=== PATIENT | female | born 1980 | race Caucasian/White ===

== ENCOUNTER 2020-02-06 17:16 | Outpatient (REF) | payer OTHER, SELFPAY ==
--- NOTE | 2020-02-06 | MM_ITS ---
EXAMINATION: MM SCREENING DIGITAL BREAST TOMOSYNTHESIS, BILATERAL CLINICAL INFORMATION: Screening. Asymptomatic. The lifetime risk of breast cancer based on the Tyrer-Cuzick Model is 17%. COMPARISON: Mammography: 12/22/2018, 12/04/2011 TECHNIQUE: Digital breast tomosynthesis is performed in both the craniocaudal and mediolateral oblique views along with computer-aided detection (CAD). Synthesized 2D images are generated from the tomosynthesis. Additional left MLO view is provided. The skin marker placed at site of dermal inflammation posterior 7:30 o'clock left breast. FINDINGS: There are scattered areas of fibroglandular density (ACR BI-RADS breast composition Category b). Parenchymal pattern is similar to prior studies. There is no interval mass or architectural abnormality. No coarsening of the Shiv's ligaments or interval duct ectasia. No abnormal calcifications. Parenchymal asymmetry mid to posterior upper outer left breast is stable. No significant changes. MM/MM tomosynthesis screening BI IMPRESSION: No significant changes from prior study. ASSESSMENT: BI-RADS 2: Benign RECOMMENDATION: Routine annual mammography screening. This patient's information was entered into a reminder system with a target due date for their next mammogram.
== END 2020-02-06 17:17 | disposition home or self-care (01) ==
LOC: HO.MAMMO 17:16
PROVIDERS: PCP Internal Medicine; Visit Provider Obstetrics & Gynecology
DX: Z12.31 Encounter for screening mammogram for malignant neoplasm of breast (principal)
CPT/HCPCS: 77063; 77067

== ENCOUNTER 2020-04-05 09:59 | Outpatient (REF) | payer OTHER, SELFPAY | END 2020-04-05 10:00 | disposition home or self-care (01) | LOC: HO.LAB 09:59 | PROVIDERS: Visit Provider Internal Medicine | DX: Z20.822 Contact with and (suspected) exposure to COVID-19 (principal) | CPT/HCPCS: 36415; C9803; U0003 ==

== ENCOUNTER 2020-05-01 07:46 | Outpatient (REF) | payer OTHER, SELFPAY ==
[2020-05-01 08:38] LABS: MANUAL DIFF FLAG NO
[2020-05-01 08:45] LABS: Basophils Percent Auto 0.6 % (0-2); Eosinophils Absolute Auto 0.2 X10*3/uL (0.0-0.4); Eosinophils Percent Auto 3.9 % (0-4); Hematocrit 39.4 % (37-47); Imm Gran Abs Auto 0.03 X10*3/uL (0.00-0.03); Imm Gran Pct Auto 0.6 % (0.0-0.4); Lymphocytes Absolute Auto 1.5 X10*3/uL (1.2-4.9); Lymphocytes Percent Auto 29.9 % (20-40); Mean Corpuscular Hemoglobin 28.5 pg (27.0-33.0); Mean Corpuscular Volume 86.4 fL (80-98); Mean Platelet Volume 9.6 fL (9.4-12.3); Monocytes Absolute Auto 0.5 X10*3/uL (0.1-1.2); Monocytes Percent Auto 10.3 % (2-11); Neutrophils Absolute Auto 2.8 X10*3/uL (2.0-8.3); Neutrophils Percent Auto 54.7 % (45-73); Platelet Count 252 X10*3/uL (160-400); Red Blood Count 4.56 X10*6/uL (4.20-5.50); Red Cell Distribution Width 14.8 % (11.0-16.0); White Blood Count 5.2 X10*3/uL (4.8-10.8)
[2020-05-01 09:24] LABS: Alanine Aminotransferase 15 U/L (0-31); Albumin Level 4.7 g/dL (3.5-5.0); Alkaline Phosphatase 49 U/L (39-117); Anion Gap 12 (12-20); Aspartate Amino Transferase 15 U/L (5-31); Bilirubin Total 0.4 mg/dL (0.0-1.0); Blood Urea Nitrogen 15 mg/dL (9-16); Calcium 9.4 mg/dL (8.4-10.2); Carbon Dioxide 26 mmol/L (22-29); Chloride 104 mmol/L (96-108); Estimated Glomerular Filt Rate > 60; Glucose Fasting 83 mg/dL (60-99); Iron 49 mcg/dL (30-160); Percent Iron Saturation 11 % (15-50); Potassium 4.2 mmol/L (3.3-5.1); Sodium 138 mmol/L (135-145); Total Iron Binding Capacity 449 mcg/dL (228-428); Total Protein 7.5 g/dL (6.5-8.0); Unsaturated Iron Binding 400 ug/dL
[2020-05-01 10:22] LABS: HIV AB/AG Nonreactive (Nonreactive); HIV Num 1 0.08 S/CO (0.00-0.99)
[2020-05-02 21:46] LABS: Folate 7.7 ng/mL (> or = 4.0); Vitamin B12 188 pg/mL (200-900)
[2020-05-05 13:17] LABS: Vitamin D 25-OH, D2 <4 ng/mL; Vitamin D 25-OH, D3 9 ng/mL; Vitamin D 25-OH, Total 9 ng/mL (30-100)
== END 2020-05-01 07:47 | disposition home or self-care (01) ==
LOC: HO.LAB 07:46
PROVIDERS: PCP Internal Medicine; Visit Provider Internal Medicine
DX: D50.9 Iron deficiency anemia, unspecified (principal); R53.82 Chronic fatigue, unspecified; E55.9 Vitamin D deficiency, unspecified
CPT/HCPCS: 36415; 80053; 82306; 82607; 82746; 83540; 85025; 87389

== ENCOUNTER 2020-06-03 10:30 | Outpatient (REF) | payer OTHER, SELFPAY | END 2020-06-03 10:31 | disposition home or self-care (01) | LOC: HO.LAB 10:30 | PROVIDERS: Visit Provider Internal Medicine | DX: Z20.822 Contact with and (suspected) exposure to COVID-19 (principal) | CPT/HCPCS: 36415; C9803; U0003; U0005 ==

== ENCOUNTER 2020-06-10 12:55 | Outpatient (REF) | payer OTHER, SELFPAY ==
[2020-06-10 14:54] LABS: Syphilis Screen Nonreactive (Nonreactive)
[2020-06-11 04:33] LABS: HBc Num1 0.07 S/CO (0.00-0.79); HIV AB/AG Nonreactive (Nonreactive); HIV Num 1 0.08 S/CO (0.00-0.99); Hepatitis B Core Antibody Nonreactive (Nonreactive); ~HepC Num1 0.08 S/CO (0.00-0.79); ~Hepatitis C Antibody Nonreactive (Nonreactive)
[2020-06-11 10:00] LABS: CT PCR NOT DETECTED (Not Detect.); NG PCR NOT DETECTED (Not Detect.)
[2020-06-11 10:43] LABS: BV Int Neg Control Negative (Negative); BV Int Pos Control Positive (Positive)
== END 2020-06-10 12:56 | disposition home or self-care (01) ==
LOC: HO.LAB 12:55
PROVIDERS: PCP Internal Medicine; Visit Provider Advanced Practice Midwife
DX: Z01.84 Encounter for antibody response examination (principal); Z11.4 Encounter for screening for human immunodeficiency virus [HIV]; Z11.3 Encounter for screening for infections with a predominantly sexual mode of transmission; R10.2 Pelvic and perineal pain; N76.0 Acute vaginitis; G89.29 Other chronic pain; Z20.2 Contact with and (suspected) exposure to infections with a predominantly sexual mode of transmission
CPT/HCPCS: 36415; 81003; 86704; 86780; 86803; 87389; 87480; 87491; 87510; 87591; 87660; 99212

== ENCOUNTER 2020-12-31 13:59 | Outpatient (REF) | payer OTHER, SELFPAY | END 2020-12-31 14:00 | disposition home or self-care (01) | LOC: HO.LAB 13:59 | PROVIDERS: PCP Internal Medicine; Visit Provider Internal Medicine | DX: Z20.822 Contact with and (suspected) exposure to COVID-19 (principal) | CPT/HCPCS: C9803; U0003; U0005 ==

== ENCOUNTER 2021-01-06 12:07 | Outpatient (REF) | payer OTHER, SELFPAY ==
[2021-01-06 15:59] LABS: CT PCR NOT DETECTED (Not Detect.); NG PCR NOT DETECTED (Not Detect.)
[2021-01-07 11:10] LABS: BV Int Neg Control Negative (Negative); BV Int Pos Control Positive (Positive)
== END 2021-01-06 12:08 | disposition home or self-care (01) ==
LOC: HO.LAB 12:07
PROVIDERS: PCP Internal Medicine; Visit Provider Obstetrics & Gynecology
DX: Z11.3 Encounter for screening for infections with a predominantly sexual mode of transmission (principal); N76.0 Acute vaginitis; B96.89 Other specified bacterial agents as the cause of diseases classified elsewhere
CPT/HCPCS: 87480; 87491; 87510; 87591; 87660; 99212

== ENCOUNTER 2021-01-14 15:23 | Outpatient (REF) | payer OTHER, SELFPAY | END 2021-01-14 15:24 | disposition home or self-care (01) | LOC: HO.LAB 15:23 | PROVIDERS: PCP Internal Medicine; Visit Provider Internal Medicine | DX: Z20.822 Contact with and (suspected) exposure to COVID-19 (principal) | CPT/HCPCS: C9803; U0003; U0005 ==

== ENCOUNTER 2021-01-24 13:08 | Outpatient (REF) | payer OTHER, SELFPAY ==
[2021-01-24 14:17] LABS: COVID-19 Test Negative (Negative)
== END 2021-01-24 13:09 | disposition home or self-care (01) ==
LOC: HO.LAB 13:08
PROVIDERS: PCP Internal Medicine; Visit Provider Internal Medicine
DX: Z20.822 Contact with and (suspected) exposure to COVID-19 (principal)
CPT/HCPCS: 36415; 87635; C9803

== ENCOUNTER 2021-01-31 15:16 | Outpatient (REF) | payer OTHER, SELFPAY ==
[2021-01-31 15:45] LABS: COVID-19 Test Negative (Negative)
== END 2021-01-31 15:17 | disposition home or self-care (01) ==
LOC: HO.LAB 15:16
PROVIDERS: Visit Provider Internal Medicine
DX: Z20.822 Contact with and (suspected) exposure to COVID-19 (principal)
CPT/HCPCS: 36415; 87635; C9803

== ENCOUNTER 2021-08-18 09:49 | Outpatient (REF) | payer OTHER, SELFPAY ==
[2021-08-19 05:33] LABS: CT PCR NOT DETECTED (Not Detect.); NG PCR NOT DETECTED (Not Detect.)
[2021-08-19 13:09] LABS: BV Int Neg Control Negative (Negative); BV Int Pos Control Positive (Positive)
[2021-08-26 02:13] LABS: HPV mRNA E6/E7 rflx Not Detected (Not Detected)
== END 2021-08-18 09:50 | disposition home or self-care (01) ==
LOC: HO.LAB 09:49
PROVIDERS: PCP Internal Medicine; Visit Provider Advanced Practice Midwife
DX: Z12.4 Encounter for screening for malignant neoplasm of cervix (principal); Z11.51 Encounter for screening for human papillomavirus (HPV); Z11.3 Encounter for screening for infections with a predominantly sexual mode of transmission; R10.2 Pelvic and perineal pain; B96.89 Other specified bacterial agents as the cause of diseases classified elsewhere; N73.9 Female pelvic inflammatory disease, unspecified; N76.0 Acute vaginitis; Z86.19 Personal history of other infectious and parasitic diseases; Z87.42 Personal history of other diseases of the female genital tract
CPT/HCPCS: 81025; 87480; 87491; 87510; 87591; 87624; 87660; 96372; J0696

== ENCOUNTER 2021-10-03 15:08 | Outpatient (REF) | payer OTHER, SELFPAY ==
--- NOTE | ~2021-10-03 | US_ITS ---
EXAMINATION: US PELVIS CLINICAL INFORMATION: Pelvic inflammatory disease. COMPARISON: December 28, 2014 TECHNIQUE: Ultrasound of the pelvis is performed using both transabdominal and transvaginal transducers along with Doppler. Transvaginal imaging is performed due to inadequate visualization transabdominally. FINDINGS: Uterus: The uterus is anteverted and measures 10.9 x 5.3 x 7.0 cm. The double wall endometrial thickness is 1.1 mm. The uterus is smooth in contour and has normal myometrial echogenicity. No visible fibroid. Adnexa: Both ovaries are visualized. There is normal color flow to the adnexa. There is no ovarian torsion. There is no pelvic ascites or fluid collection. Right ovary measures 3.1 x 1.8 x 1.8 cm. Volume of 5.3 mL. Left ovary measures 2.5 x 2.1 x 1.8 cm. 5.0 mL volume. US/US pelvic and transvaginal IMPRESSION: Essentially normal pelvic ultrasound study. Previously noted uterine fibroids are not definitely identified on this study.
== END 2021-10-03 15:09 | disposition home or self-care (01) ==
LOC: HO.US 15:08
PROVIDERS: Visit Provider Advanced Practice Midwife
DX: N73.9 Female pelvic inflammatory disease, unspecified (principal); B96.89 Other specified bacterial agents as the cause of diseases classified elsewhere; N76.0 Acute vaginitis; Z86.19 Personal history of other infectious and parasitic diseases; Z87.42 Personal history of other diseases of the female genital tract
CPT/HCPCS: 76830; 76856

== ENCOUNTER → 2021-10-10 12:32 | Outpatient (BNVA) | payer OTHER, SELFPAY | PROVIDERS: PCP Internal Medicine; Visit Provider Advanced Practice Midwife | DX: R10.2 Pelvic and perineal pain (principal); G89.29 Other chronic pain; Z87.42 Personal history of other diseases of the female genital tract | CPT/HCPCS: 99212 ==

== ENCOUNTER 2022-01-08 11:00 | Outpatient (REF) | payer OTHER, SELFPAY ==
--- NOTE | ~2022-01-08 | XR_ITS ---
EXAMINATION: XR ABDOMEN KUB CLINICAL INDICATION: Left lower quadrant pain. Patient states abdominal pain for months COMPARISON: None TECHNIQUE: AP view of the abdomen. FINDINGS: Nonobstructed abdominal bowel gas pattern. Right upper quadrant cholecystectomy clips. No radiopaque urolithiasis seen. Prominent L5 transverse processes bilaterally. XR/XR KUB IMPRESSION: Nonobstructive abdominal bowel gas pattern.
[2022-01-08 12:12] LABS: MANUAL DIFF FLAG NO
[2022-01-08 12:42] LABS: Basophils Percent Auto 0.7 % (0-2); Eosinophils Absolute Auto 0.1 X10*3/uL (0.0-0.4); Hematocrit 39.5 % (37.0-47.0); Hemoglobin 12.7 g/dl (12.0-16.0); Imm Gran Abs Auto 0.03 X10*3/uL (0.00-0.03); Imm Gran Pct Auto 0.5 % (0.0-0.4); Lymphocytes Absolute Auto 1.5 X10*3/uL (1.2-4.9); Lymphocytes Percent Auto 25.8 % (20-40); Mean Corpuscular HGB Conc 32.2 g/dl (31.0-35.0); Mean Corpuscular Hemoglobin 28.3 pg (27.0-33.0); Mean Corpuscular Volume 88.2 fL (80.0-98.0); Mean Platelet Volume 8.9 fL (9.4-12.3); Monocytes Absolute Auto 0.5 X10*3/uL (0.1-1.2); Monocytes Percent Auto 7.7 % (2-11); Neutrophils Absolute Auto 3.9 x10*3/uL (2.0-8.3); Neutrophils Percent Auto 64.3 % (45-73); Platelet Count 266 X10*3/uL (160-400); Red Blood Count 4.48 X10*6/uL (4.20-5.50); Red Cell Distribution Width 13.2 % (11.0-16.0)
[2022-01-08 13:20] LABS: Alanine Aminotransferase 22 U/L (0-31); Albumin Level 4.5 g/dL (3.5-5.0); Alkaline Phosphatase 52 U/L (39-117); Anion Gap 15 (12-20); Aspartate Amino Transferase 20 U/L (5-31); Bilirubin Total 0.6 mg/dL (0.0-1.0); Blood Urea Nitrogen 14 mg/dL (9-16); Calcium 9.3 mg/dL (8.4-10.2); Carbon Dioxide 25 mmol/L (22-29); Chloride 104 mmol/L (96-108); Estimated Glomerular Filt Rate > 60; Glucose Random 88 mg/dL (60-115); Potassium 3.8 mmol/L (3.3-5.1); Sodium 140 mmol/L (135-145); Total Protein 7.3 g/dL (6.5-8.0)
[2022-01-08 13:43] LABS: TSH reflex Free T4 1.09 uIU/mL (0.32-4.0)
== END 2022-01-08 11:01 | disposition home or self-care (01) ==
LOC: HO.LAB 11:00
PROVIDERS: PCP Internal Medicine; Visit Provider Nurse Practitioner Family
DX: R10.32 Left lower quadrant pain (principal); M54.50 Low back pain, unspecified
CPT/HCPCS: 36415; 74018; 80053; 84443; 85025; 87086

== ENCOUNTER 2022-03-12 13:49 | Outpatient (REF) | payer OTHER, SELFPAY ==
--- NOTE | ~2022-03-12 | CT_ITS ---
EXAMINATION: CT ABDOMEN AND PELVIS WITH CONTRAST CLINICAL INFORMATION: Left lower quadrant pain COMPARISON: None TECHNIQUE: Multidetector volumetric images were obtained from the superior aspect of the liver through the pubic symphysis following administration 85 mL of Omnipaque 350 intravenous contrast. Sagittal and coronal reformatted images were obtained on the technologist's workstation. Oral contrast: No This CT examination was performed using dose optimization techniques as appropriate, variously including the following: *Automated exposure control *Adjustment of mA and/or kV according to patient size (this includes techniques or standardized protocols for targeted exams where dose is matched to indication/reason for exam; i.e. extremities or head) *Use of iterative reconstruction technique DLP: 596 mGy-cm FINDINGS: LUNG BASES: The lung bases are clear. Heart size is normal. LIVER, GALLBLADDER, AND BILIARY TREE: The liver is normal in size, shape, and attenuation. No focal hepatic lesion or biliary ductal dilatation is present. The gallbladder has been surgically removed. PANCREAS: Unremarkable. SPLEEN: Unremarkable. ADRENAL GLANDS: Unremarkable. KIDNEYS AND URETERS: The kidneys are normal in size, shape, and attenuation. There is a 9 mm radiopaque calculi mid pole cortex left kidney. BLADDER: Unremarkable. GASTROINTESTINAL TRACT: There is oral contrast opacifying the colon and small bowel loops which are normal caliber. There is scattered stool seen throughout the colon without distention. Appendix is not visualized. A migrated surgical charo seen in the left pelvis. ABDOMINAL WALL: No significant hernia is appreciated. LYMPH NODES: Normal. VASCULAR: Unremarkable. PELVIC VISCERA: The uterus is anteverted with moderate gas and soft tissue visualized in the cervix. There are 2 cyst visualized in the left ovary, a thin-walled enhancing corpus luteal cyst measures 2.2 cm and a slightly larger nonenhancing simple cyst measures 3.3 cm OSSEOUS STRUCTURES: No aggressive lytic or sclerotic process seen. There are degenerative disc changes with vacuum disc phenomena at L4-L5 disc level. There is mild ventral spondylosis. CT/CT abdomen pelvis w IV con IMPRESSION: 2 cysts in the left ovary as described above. Otherwise no acute process seen. Fleischner guidelines were followed.
[2022-03-12] MEDS: Barium Sulfate Oral (Mocha) 450 ML ORAL.SUSP 900 ML PO (16:23)
[2022-03-12] MEDS: iohexoL 350 MG/ML 100 ML INFUS..BTL 85 ML IV (16:23)
== END 2022-03-12 13:50 | disposition home or self-care (01) ==
LOC: HO.CT 13:49
PROVIDERS: PCP Internal Medicine; Visit Provider Nurse Practitioner Family
DX: R10.32 Left lower quadrant pain (principal)
CPT/HCPCS: 74177; Q9967

== ENCOUNTER 2022-04-13 12:03 | Outpatient (REF) | payer OTHER, SELFPAY ==
[2022-04-13 12:24] LABS: MANUAL DIFF FLAG NO
[2022-04-13 14:25] LABS: Basophils Percent Auto 0.6 % (0-2); Eosinophils Absolute Auto 0.1 X10*3/uL (0.0-0.4); Eosinophils Percent Auto 1.2 % (0-4); Hematocrit 38.1 % (37.0-47.0); Hemoglobin 12.8 g/dl (12.0-16.0); Imm Gran Abs Auto 0.03 X10*3/uL (0.00-0.03); Imm Gran Pct Auto 0.6 % (0.0-0.4); Lymphocytes Absolute Auto 1.9 X10*3/uL (1.2-4.9); Mean Corpuscular HGB Conc 33.6 g/dl (31.0-35.0); Mean Corpuscular Hemoglobin 29.4 pg (27.0-33.0); Mean Corpuscular Volume 87.4 fL (80.0-98.0); Mean Platelet Volume 9.5 fL (9.4-12.3); Monocytes Absolute Auto 0.6 X10*3/uL (0.1-1.2); Monocytes Percent Auto 11.5 % (2-11); Neutrophils Absolute Auto 2.6 x10*3/uL (2.0-8.3); Neutrophils Percent Auto 50.1 % (45-73); Platelet Count 248 X10*3/uL (160-400); Red Blood Count 4.36 X10*6/uL (4.20-5.50); Red Cell Distribution Width 13.7 % (11.0-16.0); White Blood Count 5.1 X10*3/uL (4.8-10.8)
[2022-04-13 14:51] LABS: Iron 68 mcg/dL (30-160); Percent Iron Saturation 19 % (15-50); Total Iron Binding Capacity 365 mcg/dL (228-428); Unsaturated Iron Binding 297 ug/dL
[2022-04-13 15:06] LABS: Folate 13.4 ng/mL (> or = 4.0); Thyroid Stimulating Hormone 1.27 uIU/mL (0.32-4.0); Vitamin B12 213 pg/mL (200-900); Vitamin D 25-OH Total 10.1 ng/mL (>30)
[2022-04-16 21:43] LABS: Intrinsic Factor Antibodies Negative (Negative)
[2022-04-17 23:28] LABS: Parietal Cell Antibody <=20.0 Unit (<=20.0)
== END 2022-04-13 12:04 | disposition home or self-care (01) ==
LOC: HO.LAB 12:03
PROVIDERS: PCP Internal Medicine; Visit Provider Internal Medicine
DX: E53.8 Deficiency of other specified B group vitamins (principal); E66.01 Morbid (severe) obesity due to excess calories; E55.9 Vitamin D deficiency, unspecified; D64.9 Anemia, unspecified
CPT/HCPCS: 36415; 82306; 82607; 82746; 83516; 83540; 84443; 85025; 86340

== ENCOUNTER 2022-04-28 09:59 | Outpatient (REF) | payer OTHER, SELFPAY | END 2022-04-28 10:00 | disposition home or self-care (01) | LOC: HO.LNP 09:59 | PROVIDERS: Visit Provider Obstetrics & Gynecology | DX: Z13.89 Encounter for screening for other disorder (principal) ==

== ENCOUNTER 2022-04-28 10:37 | Outpatient (REF) | payer OTHER, SELFPAY ==
[2022-04-28 18:21] LABS: CT PCR NOT DETECTED (Not Detect.); NG PCR NOT DETECTED (Not Detect.)
[2022-04-29 06:36] LABS: Syphilis Screen Nonreactive (Nonreactive)
[2022-04-29 07:42] LABS: HBsAGNum1 0.27 S/CO (0.00-0.99); HIV Num 1 5.65 S/CO (0.00-0.99); Hepatitis B Surface Antigen Negative (Negative); ~HepC Num1 0.07 S/CO (0.00-0.79); ~Hepatitis C Antibody Nonreactive (Nonreactive)
[2022-04-29 11:52] LABS: HIV AB/AG Nonreactive (Nonreactive); HIV Num 2 0.07 S/CO; HIV Num 3 0.06 S/CO
[2022-04-29 12:51] LABS: BV Int Neg Control Negative (Negative); BV Int Pos Control Positive (Positive)
== END 2022-04-28 10:38 | disposition home or self-care (01) ==
LOC: HO.LAB 10:37
PROVIDERS: PCP Internal Medicine; Visit Provider Obstetrics & Gynecology
DX: Z01.419 Encounter for gynecological examination (general) (routine) without abnormal findings (principal); Z20.2 Contact with and (suspected) exposure to infections with a predominantly sexual mode of transmission
CPT/HCPCS: 0353U; 86780; 86803; 87340; 87389; 87480; 87510; 87660

== ENCOUNTER → 2022-05-13 10:35 | Outpatient (BNVA) | payer OTHER, SELFPAY | PROVIDERS: PCP Internal Medicine; Visit Provider Nurse Practitioner Family | DX: N20.0 Calculus of kidney (principal) | CPT/HCPCS: 99202 ==

== ENCOUNTER → 2022-06-10 06:07 | Day surgery (SDC) | payer OTHER, SELFPAY ==
[2022-06-04 14:08] VITALS: BMI 41.7
--- NOTE | ~2022-06-10 | XR_ITS ---
EXAMINATION: XR ABDOMEN KUB CLINICAL INDICATION: Left renal stone COMPARISON: CT abdomen/pelvis dated 03/12/2022 TECHNIQUE: 2 views of the abdomen. FINDINGS: The bowel gas pattern is normal with no evidence of ileus or obstruction. There are 2 stones in the upper pole right kidney measuring 6 mm and 5 mm as seen on the prior CT. No additional unusual soft tissue calcifications are noted. There are a few phleboliths within the pelvis. Cholecystectomy. The bones are unremarkable. XR/XR KUB IMPRESSION: There are 2 stones in the upper pole right kidney measuring 6 mm and 5 mm.
[2022-06-10 06:39] VITALS: BP 131/76; PULSE 78; RESP 18; TEMP 36.6; O2SAT 97
[2022-06-10] MEDS: Lactated Ringers 1,000 ML 50 ML IVCONT (06:51)
[2022-06-10] MEDS: Lactated Ringers 1,000 ML 999 ML IV (08:16)
--- NOTE | 2022-06-10 08:28 | P.CONAN_ITS ---
HPI - Anesthesia Eval Consult details Narrative: * ? Details Ana Maria is a pleasant 42-year-old female patient for nephrolithiasis.? Patient reports she presented to her PCP office for abdominal/lower back pain left side greater than right.? Medical history significant for iron deficiency anemia, depression, anxiety, vitamin-D deficiency, PID, and chronic pelvic pain in female.? Patient reports left-sided abdominal pain as well as back pain for approximately 6 months now.? Patient reports taking Motrin and Tylenol without adequate relief.? She reports following up with PCP regarding this issue at which time CT of the abdomen and pelvis was performed as patient has a history of renal calculi.? This imaging was reviewed with the patient today. The kidneys are normal in size, shape, and attenuation. There is a 9 mm radiopaque calculi mid pole cortex left kidney.? The bladder is unremarkable.? When asked patient denies any other urinary issues or concerns.? She denies any changes to her urinary habits.? She denies urinary urgency, urinary frequency, incontinence, nocturia, hematuria, dysuria, foul smelling urine, changes to urinary stream, fever, and or chills. Discussed at length interventions as well as risk and befits of each intervention regarding 9mm left renal calculi. [facility] Active Problems Active Problems: All Active Problems (Updated 04/28/22 @ 10:21 by Sergo Nuñez MD) Bacterial vaginosis (Acute) Screen for sexually transmitted diseases (Acute) Cervical cancer screening (Acute) Hx of gonorrhea (Acute) Hx of chronic endometritis (Acute) Pelvic inflammatory disease (PID) (Acute) Chronic pelvic pain in female (Acute) LLQ pain (Acute) Low back pain (Acute) Constipation (Acute) Abdominal bloating (Acute) Left renal stone (Acute) Morbid obesity due to excess calories (Acute) QUINCY (generalized anxiety disorder) (Acute) Severe recurrent major depression (Acute) Well woman exam (Acute) Hypovitaminosis D (Acute) B12 deficiency (Acute) Depression with anxiety (Acute) Chronic fatigue (Acute) Iron deficiency anemia (Acute) Past Medical History Medical History B12 deficiency Chronic fatigue Depression with anxiety History of cocaine use Hypovitaminosis D Iron deficiency anemia Family History Family History Father HTN (hypertension) Liver disease due to alcohol Mother HTN (hypertension) Diabetes Maternal Aunt Breast cancer Uterine cancer Maternal Uncle Breast cancer Paternal Grandmother Uterine cancer Family history of problems with anesthesia: No Surgical History Surgical History (Updated 06/04/22 @ 14:08 by Radha Rodriguez RN) H/O section H/O tubal ligation History of ankle surgery Hx of breast reduction, elective Hx of cholecystectomy History of Problems with Anesthesia: No Social History Social History Alcohol intake: never Patient Tobacco Use Status: Current everyday Tobacco user Cigarettes Per Day: 3 Are you DNR?: No Advance Directives: No Advance Directives Information Provided: Yes Recently lost weight without trying: No Nutrition Risks: No Nutritional Risk Cognitive needs: No Hearing needs: No Vision needs: No Meds Allergies Allergy/AdvReac Type Severity Reaction Status Date / Time ferrous sulfate Allergy Severe abdominal Verified 05/13/22 19:30 pain Sulfa (Sulfonamide Allergy Severe RASH, Verified 06/04/22 13:57 Antibiotics) TROUBLE SWALLOWING, DIFFICULTY BREATHING, anaphylaxis venlafaxine [From Effexor] Allergy Severe anaphylaxis/tongue Verified 06/04/22 13:55 swelling ibuprofen [From MOTRIN] Allergy Intermediate SHORTNESS Verified 05/13/22 19:30 OF BREATH morphine [MORPHINE] Allergy Intermediate NAUSEA/VOMITING, Verified 06/04/22 13:57 anaphylaxis aspirin [Aspirin] Allergy Mild hives/rash/SOB/difficulty Verified 06/04/22 13:57 swallowing/throat swelling hydromorphone [From DILAUDID] AdvReac Intermediate DYSPHORIA Verified 05/13/22 19:30 Active Medications: Current Medications Lactated Ringer's (Lr) 1,000 mls @ 50 mls/hr IVCONT .Q20H HONEY Last Admin: 06/10/22 06:51 Dose: 50 mls/hr Lactated Ringer's (Lr) 1,000 mls @ 999 mls/hr IV .Q1H1M [facility] Stop: 06/10/22 09:00 Last Admin: 06/10/22 08:16 Dose: 999 mls/hr Sodium Chloride (0.9 % Sodium Chloride Flush 3 Ml Syringe) 3 ml IVFLUSH QSHIFT [facility] Home Medications Medication Instructions Recorded Confirmed Last Taken Type citalopram 40 mg tablet 40 mg PO BEDTIME 12/04/19 06/04/22 Unknown History lorazepam 1 mg tablet 1 mg PO TID PRN Anxiety 12/04/19 06/04/22 06/10/22 05:45 History gabapentin 100 mg capsule 100 mg PO BEDTIME 05/13/22 06/04/22 Unknown History risperidone 1 mg tablet 0.5 mg PO QAM 05/13/22 06/04/22 Unknown History zolpidem 10 mg tablet 10 mg PO BEDTIME PRN insomnia 05/13/22 06/04/22 Unknown History Exam Exam Date and Time: June 10, 2022 0828 Height,Weight and Vital Signs: Height 5 ft 2 in Weight 103.419 kg Last Vital Signs Temp 98 F 06/10/22 06:39 Pulse 78 06/10/22 06:39 Resp 18 06/10/22 06:39 BP 131/76 06/10/22 06:39 Pulse Ox 97 06/10/22 06:39 O2 Del Method Room Air 06/10/22 06:39 Airway Mallampati Class: II TM Dist: >3cm Neck ROM: Full Heart: rrr Lungs: cta Assessment and Plan Assessment Anesthesia Assessment: Anesthesia Plan Discussed Final Anesthetic Review Family History of Problems with Anesthesia: No History of Problems with Anesthesia: No NPO: Yes ASA Class: III Final Preanesthetic Review: No Changes in Pt Med Stat, Meds/Allgs Chart Reviewed and Consent Obtained/Reviewed Patient Risk: Intermediate Procedure Risk: Low Anesthetic Plan Anesthetic Plan: GA Disposition: Standard PACU
--- NOTE | 2022-06-10 08:59 | MHC.SHP ---
Pre-Procedural Eval Section A Date of Service: 06/10/22 The patient is an INPATIENT: No Changes since office visit: No Cold of Flu in the past 2 weeks, No New Medical Problems, No Changes in Medication and No Patient answered all questions The History & Physical has been completed within 30 days and I have reviewed it.: Yes Section B Chief Complaint: Calculus of kidney Details of Present Illness: Upon review of imaging stone reported left but is on the right patient given option of right ESWL or deferring procedure She would like to defer Allergies: Allergies Allergy/AdvReac Type Severity Reaction Status Date / Time ferrous sulfate Allergy Severe abdominal Verified 05/13/22 19:30 pain Sulfa (Sulfonamide Allergy Severe RASH, Verified 06/04/22 13:57 Antibiotics) TROUBLE SWALLOWING, DIFFICULTY BREATHING, anaphylaxis venlafaxine [From Effexor] Allergy Severe anaphylaxis/tongue Verified 06/04/22 13:55 swelling ibuprofen [From MOTRIN] Allergy Intermediate SHORTNESS Verified 05/13/22 19:30 OF BREATH morphine [MORPHINE] Allergy Intermediate NAUSEA/VOMITING, Verified 06/04/22 13:57 anaphylaxis aspirin [Aspirin] Allergy Mild hives/rash/SOB/difficulty Verified 06/04/22 13:57 swallowing/throat swelling hydromorphone [From DILAUDID] AdvReac Intermediate DYSPHORIA Verified 05/13/22 19:30 Plan Diagnosis/Plan: Change (Cancel ESWL) I have reviewed the history and physical and performed a pertinent physical examination on my patient. No changes have occurred unless specified. Time Spent With Patient Time: Total time managing care of this patient today ____ minutes.
--- NOTE | 2022-06-10 09:07 | PC.NURSE ---
pt cancelled will f/u with dr bautista in couple weeks for ultrasound if having any pain no pain
== END ==
PROVIDERS: PCP Internal Medicine; Visit Provider Urology
DX: N20.0 Calculus of kidney (principal); Z53.20 Procedure and treatment not carried out because of patient's decision for unspecified reasons; Z87.442 Personal history of urinary calculi; D50.9 Iron deficiency anemia, unspecified; R53.82 Chronic fatigue, unspecified; E55.9 Vitamin D deficiency, unspecified; F41.8 Other specified anxiety disorders; Z79.899 Other long term (current) drug therapy; Z88.2 Allergy status to sulfonamides; Z88.8 Allergy status to other drugs, medicaments and biological substances; F14.11 Cocaine abuse, in remission; F17.210 Nicotine dependence, cigarettes, uncomplicated
CPT/HCPCS: 74018; J0131

== ENCOUNTER 2022-07-30 08:52 | Emergency (ER) | payer OTHER, SELFPAY ==
--- NOTE | ~2022-07-30 | CT_ITS ---
EXAMINATION: CT ABDOMEN AND PELVIS WITH CONTRAST CLINICAL INFORMATION: Acute on chronic left lower quadrant pain COMPARISON: CT abdomen and pelvis 03/12/2022 TECHNIQUE: Multidetector volumetric images were obtained from the superior aspect of the liver through the pubic symphysis following administration 85 mL of Omnipaque 350 intravenous contrast. Sagittal and coronal reformatted images were obtained on the technologist's workstation. Oral contrast: None This CT examination was performed using dose optimization techniques as appropriate, variously including the following: *Automated exposure control *Adjustment of mA and/or kV according to patient size (this includes techniques or standardized protocols for targeted exams where dose is matched to indication/reason for exam; i.e. extremities or head) *Use of iterative reconstruction technique DLP: 841 mGy-cm FINDINGS: LUNG BASES: The visualized lung bases are unremarkable. LIVER, GALLBLADDER, AND BILIARY TREE: The liver is normal in size, shape, and attenuation. No focal hepatic lesion or biliary ductal dilatation is present. The gallbladder has been surgically removed. CBD is mildly prominent an expected finding. PANCREAS: Unremarkable. SPLEEN: Unremarkable. ADRENAL GLANDS: Unremarkable. KIDNEYS AND URETERS: The kidneys are normal in size, shape, and attenuation. There is a 6 mm nonobstructive calculi midpole right kidney similar to previous study. No acute additional vertebrae calculi seen. There is no caliectasis or hydronephrosis. BLADDER: The bladder is nondistended and appears unremarkable. GASTROINTESTINAL TRACT: There is moderate scattered stool and gas seen throughout the colon without distention. The small bowel loops are normal caliber. There is a radiopaque density seen along the anterior abdomen inferior to umbilicus on axial image 65/3 likely migrated staple from previous cholecystectomy. ABDOMINAL WALL: A small umbilical hernia containing fat is noted. LYMPH NODES: Normal. VASCULAR: Unremarkable. PELVIC VISCERA: The uterus is anteverted. There are probable small ovarian cysts. OSSEOUS STRUCTURES: There are degenerative disc changes with vacuum disc phenomena and spondylosis L4-L5 disc level. No aggressive lytic or sclerotic process seen. CT/CT abdomen pelvis w IV con IMPRESSION: No abnormality seen in left abdomen. No abnormality seen to explain patient's left lower quadrant pain. Nonobstructive radiopaque calculi mid pole right kidney. No caliectasis or hydronephrosis. Fleischner guidelines were followed.
[2022-07-30 09:01] VITALS: BP 118/69; PULSE 77; RESP 16; TEMP 36.1; O2SAT 97; BMI 42.8
--- NOTE | 2022-07-30 09:13 | PC.NURSE ---
aox3, reporting 9/10 left sided pain from LLQ radiating around to Left flank. pt reports SOB, nausea, denies vomiting.
[2022-07-30 10:12] LABS: MANUAL DIFF FLAG NO
[2022-07-30 10:14] LABS: Basophils Percent Auto 0.6 % (0-2); Eosinophils Percent Auto 0.4 % (0-4); Hematocrit 39.7 % (37.0-47.0); Hemoglobin 13.1 g/dl (12.0-16.0); Imm Gran Abs Auto 0.02 X10*3/uL (0.00-0.03); Imm Gran Pct Auto 0.4 % (0.0-0.4); Lymphocytes Absolute Auto 1.3 X10*3/uL (1.2-4.9); Lymphocytes Percent Auto 26.3 % (20-40); Mean Corpuscular Hemoglobin 28.6 pg (27.0-33.0); Mean Corpuscular Volume 86.7 fL (80.0-98.0); Mean Platelet Volume 9.3 fL (9.4-12.3); Monocytes Absolute Auto 0.4 X10*3/uL (0.1-1.2); Monocytes Percent Auto 8.8 % (2-11); Neutrophils Absolute Auto 3.2 x10*3/uL (2.0-8.3); Neutrophils Percent Auto 63.5 % (45-73); Platelet Count 275 X10*3/uL (160-400); Red Blood Count 4.58 X10*6/uL (4.20-5.50); Red Cell Distribution Width 13.7 % (11.0-16.0)
[2022-07-30] MEDS: 0.9 % Sodium Chloride 1,000 ML 999 ML IV (10:31)
[2022-07-30 10:45] LABS: Appearance Urine Clear; Color Urine Dark Yellow; Glucose Urine UA Negative (Negative); Leukocyte Esterase Urine Negative (Negative); Nitrite Urine Negative (Negative); Specific Gravity - Urine >= 1.030 (1.005-1.025); UPreg QC Valid YES; Urine Blood Negative (Negative); Urine Ketones Negative (Negative); Urine Pregnancy NEGATIVE (NEGATIVE); Urine Protein Trace mg/dL (Neg-Trace)
[2022-07-30 10:49] LABS: Alanine Aminotransferase 22 U/L (0-31); Albumin Level 4.3 g/dL (3.5-5.0); Alkaline Phosphatase 52 U/L (39-117); Anion Gap 11 (12-20); Aspartate Amino Transferase 19 U/L (5-31); Bilirubin Total 0.8 mg/dL (0.0-1.0); Blood Urea Nitrogen 11 mg/dL (9-16); Calcium 9.4 mg/dL (8.4-10.2); Carbon Dioxide 25 mmol/L (22-29); Chloride 106 mmol/L (96-108); Estimated Glomerular Filt Rate > 60; Glucose Random 99 mg/dL (60-115); Potassium 4.3 mmol/L (3.3-5.1); Sodium 138 mmol/L (135-145)
[2022-07-30] MEDS: iohexoL 350 MG/ML 100 ML INFUS..BTL IV (11:10)
[2022-07-30 12:00] VITALS: BP 116/55; PULSE 64; RESP 16; O2SAT 99
--- NOTE | 2022-07-30 12:57 | ED_ITS ---
HPI - Female Genitourinary General Chief complaint: Urogenital-Female Stated complaint: Kidney stones Time Seen by Provider: 07/30/22 09:10 Source: patient Mode of arrival: ambulatory Limitations: no limitations History of Present Illness HPI Narrative: 42-year-old female presents with left-sided abdominal pain. Patient has history kidney stones. She was due to have her procedure at some point in the recent past. Her pain has been left-sided sometimes radiating to left flank. Associated with urinary frequency which is unchanged but no dysuria, hematuria. The pain is severe rated as 9/10. There is no clear relieving or exacerbating features. Not associated with diarrhea constipation. There is no blood in the stool. Symptoms started approximately 2 months ago and have gotten worse over the past 2-3 days. Patient describes the pain as crampy and sharp in nature. Prior treatment includes Tylenol with no significant patient denies any vaginal bleeding but does have a clear vaginal discharge which has been an ongoing issue Related Data Home Medications Medication Instructions Recorded Confirmed citalopram 40 mg tablet 40 mg PO BEDTIME 12/04/19 06/04/22 lorazepam 1 mg tablet 1 mg PO TID PRN Anxiety 12/04/19 06/04/22 gabapentin 100 mg capsule 100 mg PO BEDTIME 05/13/22 06/04/22 risperidone 1 mg tablet 0.5 mg PO QAM 05/13/22 06/04/22 zolpidem 10 mg tablet 10 mg PO BEDTIME PRN insomnia 05/13/22 06/04/22 Previous Rx's Medication Instructions Recorded cholecalciferol (vitamin D3) 50 50 mcg PO DAILY 90 days #90 caps 04/13/22 mcg (2,000 unit) capsule folic acid 1 mg tablet 1 mg PO DAILY 90 days #90 tabs 04/13/22 lactulose 10 gram/15 mL (15 mL) 10 g (15 mL) PO DAILY PRN 06/07/22 oral solution constipation 90 days #1,440 mL mecobalamin (vitamin B12) 1,000 1,000 mcg sublingual BEDTIME 90 06/07/22 mcg disintegrating days #90 tabs tablet,sublingual dicyclomine 20 mg tablet 20 mg PO QID #20 tabs 07/30/22 Allergies Allergy/AdvReac Type Severity Reaction Status Date / Time ferrous sulfate Allergy Severe abdominal Verified 05/13/22 19:30 pain Sulfa (Sulfonamide Allergy Severe RASH, Verified 06/04/22 13:57 Antibiotics) TROUBLE SWALLOWING, DIFFICULTY BREATHING, anaphylaxis venlafaxine [From Effexor] Allergy Severe anaphylaxis/tongue Verified 06/04/22 13:55 swelling ibuprofen [From MOTRIN] Allergy Intermediate SHORTNESS Verified 05/13/22 19:30 OF BREATH morphine [MORPHINE] Allergy Intermediate NAUSEA/VOMITING, Verified 06/04/22 13:57 anaphylaxis aspirin [Aspirin] Allergy Mild hives/rash/SOB/difficulty Verified 06/04/22 13:57 swallowing/throat swelling hydromorphone [From DILAUDID] AdvReac Intermediate DYSPHORIA Verified 05/13/22 19:30 PMFSH Past Medical History Medical History B12 deficiency Chronic fatigue Depression with anxiety History of cocaine use Hypovitaminosis D Iron deficiency anemia Surgical History H/O section H/O tubal ligation History of ankle surgery Hx of breast reduction, elective Hx of cholecystectomy Family History Family History Father HTN (hypertension) Liver disease due to alcohol Mother HTN (hypertension) Diabetes Maternal Aunt Breast cancer Uterine cancer Maternal Uncle Breast cancer Paternal Grandmother Uterine cancer Social History Social History Alcohol intake: never Patient Tobacco Use Status: Current everyday Tobacco user Cigarettes Per Day: 3 Smoked in Last 30 Days: No Advance Directives: No Advance Directives Information Provided: No Cognitive needs: No Hearing needs: No Vision needs: No Physical Exam Vital Signs: Vital Signs: Last Vital Signs Temp 97 F 07/30/22 09:01 Pulse 64 07/30/22 12:00 Resp 16 07/30/22 12:00 BP 116/55 L 07/30/22 12:00 Pulse Ox 99 07/30/22 12:00 O2 Del Method Room Air 07/30/22 12:00 BMI result Body Mass Index 42.8 GEN: Well developed, no acute distress, alert, oriented HEENT: Normocephalic, atraumatic, normal external ears, nose appears normal, no oropharyngeal edema or exudates Eyes: Normal to appearance Neck: Supple, no lymphadenopathy Respiratory: Talks in complete sentences, no respiratory distress, clear to auscultation bilaterally Cardiovascular: Regular rate and rhythm, no murmurs rubs or gallops Abdomen: Soft, nontender, LLQ tenderness, no guarding, no rebound Back: No CVA tenderness Extremities: No clubbing cyanosis or edema Neurologic: No focal neurologic deficits, cranial nerves 2-12 intact, strength is 5/5 bilaterally Skin: No rash Course Course Course Narrative: 42-year-old female with history kidney stones presents with left lower quadrant abdominal pain radiating to the left flank. Symptoms started approximately 2 months ago but got worse over last 2 days. She does have urinary frequency but no other urinary symptoms. Her examination had revealed left lower quadrant tenderness, no CVA tenderness. She had a CT scan which no identify any acute etiology for symptoms. Lab work was unremarkable for UTI, leukocytosis, electrolyte abnormality, kidney dysfunction patient did not want any analgesia. At this point, the etiology could possibly be IBS or other motility disorder. Will start patient on dicyclomine to take as needed 4 times a day. She can follow up with her primary care provider in 1 week as needed. Patient is instructed to return for any worsening or concerning symptoms. Medications Administered Discontinued Medications Generic Name Dose Route Start Last Admin Trade Name Freq PRN Reason Stop Dose Admin Sodium Chloride 1,000 mls @ 999 mls/hr 07/30/22 09:30 07/30/22 12:34 Ns IV 07/30/22 10:30 Infused .Q1H1M HONEY Infusion Iohexol 100 ml 07/30/22 11:09 07/30/22 11:10 Iohexol 350 Mg/Ml 100 Ml Infus..Btl IV 07/30/22 11:10 85 ml ONCE ONE Administration Medical Decision Making Medical Decision Making [facility] Narrative: 42-year-old female presents with left lower quadrant abdominal pain radiating to the flank. Differential diagnosis includes pyelonephritis, kidney stone, diverticulitis, colitis, IBS, IBD, radiculopathy. Patient will have a CT scan the abdomen pelvis to rule out a plethora of differential diagnoses. She will have routine laboratory analysis including urinalysis to rule out acute kidney infection. Patient was offered analgesia however, she has multiple allergies and is deferred treatment at this time. Differential Diagnosis Differential Diagnoses: The differential diagnosis associated with the pre sentation includes (See above) Admission/Observation Consideration of admission/observation: Escalation of care including admission/observation considered Lab Data MDM Lab Attestation statement: I reviewed the patient's lab results. 07/30/22 09:56 07/30/22 09:56 Labs: Lab Results 07/30/22 07/30/22 07/30/22 Range/Units 09:56 09:56 10:34 WBC 5.0 (4.8-10.8) X10*3/uL RBC 4.58 (4.20-5.50) X10*6/uL Hgb 13.1 (12.0-16.0) g/dl Hct 39.7 (37.0-47.0) % MCV 86.7 (80.0-98.0) fL MCH 28.6 (27.0-33.0) pg MCHC 33.0 (31.0-35.0) g/dl RDW 13.7 (11.0-16.0) % Plt Count 275 (160-400) X10*3/uL MPV 9.3 L (9.4-12.3) fL Immature Gran % (Auto) 0.4 (0.0-0.4) % Neut % (Auto) 63.5 (45-73) % Lymph % (Auto) 26.3 (20-40) % [place] % (Auto) 8.8 (2-11) % Eos % (Auto) 0.4 (0-4) % Baso % (Auto) 0.6 (0-2) % Lymph # (Auto) 1.3 (1.2-4.9) X10*3/uL [place] # (Auto) 0.4 (0.1-1.2) X10*3/uL Eos # (Auto) 0.0 (0.0-0.4) X10*3/uL Baso # (Auto) 0.0 (0.0-0.2) X10*3/uL Abs Immat Gran (auto) 0.02 (0.00-0.03) X10*3/uL Absolute Neuts (auto) 3.2 (2.0-8.3) x10*3/uL Absolute Nucleated RBC 0.000 (0.0-0.012) X10*3/uL Nucleated RBC % (auto) 0.0 (0.0-0.2) /100WBC Sodium 138 (135-145) mmol/L Potassium 4.3 (3.3-5.1) mmol/L Chloride 106 (96-108) mmol/L Carbon Dioxide 25 (22-29) mmol/L Anion Gap 11 L (12-20) BUN 11 (9-16) mg/dL Creatinine 0.74 (0.5-1.4) mg/dL Estim Creat Clear Calc 111.0 Estimated GFR > 60 Random Glucose 99 (60-115) mg/dL Calcium 9.4 (8.4-10.2) mg/dL Total Bilirubin 0.8 (0.0-1.0) mg/dL AST 19 (5-31) U/L ALT 22 (0-31) U/L Alkaline Phosphatase 52 (39-117) U/L Total Protein 7.0 (6.5-8.0) g/dL Albumin 4.3 (3.5-5.0) g/dL Urine Color Dark Yellow Urine Appearance Clear Urine pH 6.0 (5.0-9.0) Ur Specific [place] >= 1.030 H (1.005-1.025) Urine Protein Trace (Neg-Trace) mg/dL Urine Glucose (UA) Negative (Negative) mg/dL Urine Ketones Negative (Negative) mg/dL Urine Blood Negative (Negative) Urine Nitrite Negative (Negative) Ur Leukocyte Esterase Negative (Negative) Urine Test (NEGATIVE) 07/30/22 Range/Units 10:34 WBC (4.8-10.8) X10*3/uL RBC (4.20-5.50) X10*6/uL Hgb (12.0-16.0) g/dl Hct (37.0-47.0) % MCV (80.0-98.0) fL MCH (27.0-33.0) pg MCHC (31.0-35.0) g/dl RDW (11.0-16.0) % Plt Count (160-400) X10*3/uL MPV (9.4-12.3) fL Immature Gran % (Auto) (0.0-0.4) % Neut % (Auto) (45-73) % Lymph % (Auto) (20-40) % [place] % (Auto) (2-11) % Eos % (Auto) (0-4) % Baso % (Auto) (0-2) % Lymph # (Auto) (1.2-4.9) X10*3/uL [place] # (Auto) (0.1-1.2) X10*3/uL Eos # (Auto) (0.0-0.4) X10*3/uL Baso # (Auto) (0.0-0.2) X10*3/uL Abs Immat Gran (auto) (0.00-0.03) X10*3/uL Absolute Neuts (auto) (2.0-8.3) x10*3/uL Absolute Nucleated RBC (0.0-0.012) X10*3/uL Nucleated RBC % (auto) (0.0-0.2) /100WBC Sodium (135-145) mmol/L Potassium (3.3-5.1) mmol/L Chloride (96-108) mmol/L Carbon Dioxide (22-29) mmol/L Anion Gap (12-20) BUN (9-16) mg/dL Creatinine (0.5-1.4) mg/dL Estim Creat Clear Calc Estimated GFR Random Glucose (60-115) mg/dL Calcium (8.4-10.2) mg/dL Total Bilirubin (0.0-1.0) mg/dL AST (5-31) U/L ALT (0-31) U/L Alkaline Phosphatase (39-117) U/L Total Protein (6.5-8.0) g/dL Albumin (3.5-5.0) g/dL Urine Color Urine Appearance Urine pH (5.0-9.0) Ur Specific [place] (1.005-1.025) Urine Protein (Neg-Trace) mg/dL Urine Glucose (UA) (Negative) mg/dL Urine Ketones (Negative) mg/dL Urine Blood (Negative) Urine Nitrite (Negative) Ur Leukocyte Esterase (Negative) Urine Test NEGATIVE (NEGATIVE) Independent Interpretation I performed an independent interpretation of an: CT Scan (Prominent uterus otherwise no acute intra-abdominal pathology found) Radiology Impression Discussion of test interpretation with radiology: I have reviewed the radiolog ist's reading. ( CT/CT abdomen pelvis w IV con IMPRESSION: No abnormality seen in left abdomen. No abnormality seen to explain patient's left lower quadrant pain. Nonobstructive radiopaque calculi mid pole right kidney. No caliectasis or hydronephrosis. Fleischner guidelines were followed. ) External Record Review External record reviewed: Office record (Urology) Tests considered The following testing was considered but not selected: Ultrasound Prescription Management I considered prescription management with: Pain Medication Discharge Plan Discharge Clinical Impression: Abdominal pain, left lower quadrant Patient Disposition: Home, Self-Care Instructions: Abdominal Pain (ED) Prescriptions: New dicyclomine 20 mg tablet 20 mg PO QID Qty: 20 0RF Rx Instructions: take 30 minutes before eating and 30 minutes before bed as needed No Action mecobalamin (vitamin B12) 1,000 mcg tablet,disintegrating 1,000 mcg sublingual BEDTIME 90 Days Qty: 90 3RF Rx Instructions: place tablet under tongue and allow to dissolve for at least30 secs before swallowing lactulose 10 gram/15 mL (15 mL) solution 10 g PO DAILY PRN (Reason: constipation) 90 Days Qty: 1440 0RF cholecalciferol (vitamin D3) 50 mcg (2,000 unit) capsule 50 mcg PO DAILY 90 Days Qty: 90 1RF folic acid 1 mg tablet 1 mg PO DAILY 90 Days Qty: 90 3RF citalopram 40 mg tablet 40 mg PO BEDTIME lorazepam 1 mg tablet 1 mg PO TID PRN (Reason: Anxiety) zolpidem 10 mg tablet 10 mg PO BEDTIME PRN (Reason: insomnia) gabapentin 100 mg capsule 100 mg PO BEDTIME risperidone 1 mg tablet 0.5 mg PO QAM Rx Instructions: & 1 mg QHS Referrals: Emily Orellana MD [Primary Care Provider] - 1 week
== END 2022-07-30 13:33 | disposition home or self-care (01) ==
PROVIDERS: Emergency Provider Emergency Medicine; PCP Internal Medicine
DX: R10.32 Left lower quadrant pain (principal); F17.210 Nicotine dependence, cigarettes, uncomplicated; Z71.6 Tobacco abuse counseling; Z79.899 Other long term (current) drug therapy
CPT/HCPCS: 36415; 74177; 80053; 81003; 81025; 85025; 96360; 96361; 99284; Q9967

== ENCOUNTER 2022-10-13 14:11 | Outpatient (AMB) | payer OTHER, SELFPAY ==
[2022-10-13 14:21] VITALS: BP 118/72; PULSE 60; O2SAT 99; BMI 41.0
--- NOTE | 2022-10-13 14:21 | A.OFFPC_ITS ---
Vital Signs 10/13/22 14:21 Height 5 ft 2 in Weight 224 lb BMI 41.0 BP 118/72 Blood Pressure Location Lt brachial Position Sitting Pulse 60 Pulse Source Pulse Oximeter Pulse Oximetry (%) 99 Oxygen Delivery Method Room Air Intake Visit Reasons: PE Intake Note: Patient is here today for a physical. [employer] Wheel [employer]ator Required: No Accompanied by: Self / Same As Patient Allergies ferrous sulfate Allergy (Severe, Verified 10/13/22 14:38) abdominal pain Sulfa (Sulfonamide Antibiotics) Allergy (Severe, Verified 10/13/22 14:38) RASH, TROUBLE SWALLOWING, DIFFICULTY BREATHING, anaphylaxis venlafaxine [From Effexor] Allergy (Severe, Verified 10/13/22 14:38) anaphylaxis/tongue swelling ibuprofen [From MOTRIN] Allergy (Intermediate, Verified 10/13/22 14:38) SHORTNESS OF BREATH morphine [MORPHINE] Allergy (Intermediate, Verified 10/13/22 14:38) NAUSEA/VOMITING, anaphylaxis aspirin [Aspirin] Allergy (Mild, Verified 10/13/22 14:38) hives/rash/SOB/difficulty swallowing/throat swelling hydromorphone [From DILAUDID] Adverse Reaction (Intermediate, Verified 10/13/22 14:38) DYSPHORIA Medication List - Last Reconciled 10/13/22 by Emily Hill MD cholecalciferol (vitamin D3) 50 mcg PO DAILY 90 days citalopram 40 mg PO BEDTIME dicyclomine 20 mg PO QID gabapentin 100 mg PO BEDTIME lactulose 10 grams (15 mL) PO DAILY PRN 90 days lorazepam 1 mg PO TID PRN risperidone 0.5 mg PO QAM zolpidem 10 mg PO BEDTIME PRN Tobacco use date assessed: 10/13/22 Dental Screening Dental Screen Date: 10/13/22 Did you have a dental visit in the last 12 months?: Yes Did you have a dental problem in the last 6 months where you did not have access to dental care?: No Was dental information given to patient?: Patient has dentist HPI HPI Comments History of Present Illness Details This is a 42-year-old female with severe recurrent major depression and morbid obesity that comes for her physical exam. Depression is follow by Psychiatry and has been stable with medications. She is morbidly obese with a BMI of 41 and will be referred to weight management. Last mammogram was 2019. Last Pap smear was 2021. Last labs were discussed. No chest pain or shortness of breath. Complains of chronic low back pain and pelvic pain. [facility] Medical History (Updated 10/13/22 @ 15:56 by Emily Hill MD) B12 deficiency Chronic fatigue Depression with anxiety History of cocaine use Hypovitaminosis D Iron deficiency anemia Surgical History H/O section H/O tubal ligation History of ankle surgery Hx of breast reduction, elective Hx of cholecystectomy Family History (Updated 10/13/22 @ 14:44 by Emily Hill MD) Father HTN (hypertension) Liver disease due to alcohol Mother HTN (hypertension) Diabetes Maternal Aunt Breast cancer Uterine cancer Maternal Uncle Breast cancer Paternal Grandmother Uterine cancer Social History Housing: Apartment Alcohol intake: never Patient Tobacco Use Status: Current someday Tobacco user Cigarettes Per Day: 1 e-Cigarette/Vaping Use: Never Used service: No Current occupational status: employed Current occupation: [employer] Cognitive needs: No Hearing needs: No Vision needs: No Female Reproductive History Menstrual Age of Menarche: 9 Questionnaire Thrive Questionnaire Date Thrive assessed: 04/13/22 QUINCY-7 AMB Questionnaire QUINCY-7 Date QUINCY - 7 assessed: 04/13/22 Source: Developed by Drs. Chapo Licea, Carolina Valdez, Avtar Acosta and colleagues, with an educational diamond from [employer] Review of Systems Const All systems reviewed & are unremarkable except as noted in HPI and below Eyes Reports no additional complaints, Denies change in vision and Denies other visual disturbances Card Denies chest pain at rest, Denies chest pain with activity, Denies edema, Denies irregular heart rhythm, Denies claudication, Denies dyspnea, Denies dyspnea on exertion, Denies orthopnea, Denies paroxysmal nocturnal dyspnea and Denies slow heart rate Resp Denies cough, Denies dyspnea and Denies dyspnea on exertion GI Denies abdominal pain, Denies change in bowel habits, Reports constipation, Denies excessive flatus, Denies nausea and Denies vomiting Denies urinary incontinence, Denies urinary hesitancy and Denies urinary urgency Musc Denies abnormal gait, Reports back pain, Denies atrophy, Denies deformity, Reports arthralgias and Denies limited range of motion Skin/Breast Denies bleeding lesions, Denies changing lesions and Denies rash Neuro Denies abnormal gait and Denies lack of coordination Physical exam (Primary Care) Vital Signs: Last Vital Signs Pulse 60 10/13/22 14:21 BP 118/72 10/13/22 14:21 Pulse Ox 99 10/13/22 14:21 Oxygen Delivery Method Room Air 10/13/22 14:21 BMI result Body Mass Index 41.0 Tobacco/Smoking Status: Tobacco use Status Tobacco use date assessed 10/13/22 10/13/22 14:32 Patient Tobacco Use Status Current someday Tobacco 10/13/22 14:45 e-Cigarette/Vaping Use Never Used 10/13/22 14:32 Thrive Assessment: Date of Thrive Assessment Date Thrive assessed 04/13/22 10/13/22 14:27 Const Orientation/consciousness: patient oriented x3 HENMT Head: Yes normal to inspection, Yes normocephalic and Yes atraumatic Ears: external ears normal Eyes General: appearance normal, both eyes and all related structures Eyelids: Yes eyelids normal Conjunctivae: conjunctivae normal Neck Neck: Yes normal visual inspection and Yes supple Resp Effort & Inspection: normal respiratory effort Auscultation: clear to auscultation bilaterally Cardio Jugular venous distension: no JVD Rate: regular rate Rhythm: regular rhythm Heart sounds: S1 normal heart sound present and S2 normal heart sound present GI Inspection: Yes normal to inspection Palpation (GI): Soft to palpation and nontender Auscultation: normal bowel sounds Skin General skin exam: no rashes or lesions noted Neuro General: patient oriented x3 and no focal motor deficits Extrem General: Yes full ROM Psych Appearance: grossly normal Assessment and Plan Assessment & Plan (1) Physical exam: Code(s): Z00.00 - Encounter for general adult medical examination without abnormal findings Plan: Repeat in a year (2) Severe recurrent major depression: Code(s): F33.2 - Major depressive disorder, recurrent severe without psychotic features Plan: Follow-up with psychiatry. Continue citalopram. (3) Morbid obesity due to excess calories: Code(s): E66.01 - Morbid (severe) obesity due to excess calories Plan: Referred to weight management. BMI goal is less than 30 Orders: Orders XR ankle RT 2V Today M25.571 - Pain in right ankle and joints of right foot Referrals Medical Weight Management Referral E66.01 - Morbid (severe) obesity due to excess calories Medications: Refilled lactulose 10 grams (15 mL) PO DAILY 90 days PRN 1,440 mL 0RF constipation lactulose 10 grams (15 mL) PO DAILY PRN 1,440 mL 0RF constipation 90 days Coding Level of Care Code Est Pt Prev Care 40-64y(45013) Diagnoses Physical exam Z00.00 Severe recurrent major depression F33.2 Morbid obesity due to excess calories E66.01 Time Spent (min) 32
== END 2022-10-13 14:54 | disposition home or self-care (01) ==
PROVIDERS: Visit Provider Internal Medicine
DX: Z00.00 Encounter for general adult medical examination without abnormal findings (principal); F33.2 Major depressive disorder, recurrent severe without psychotic features; E66.01 Morbid (severe) obesity due to excess calories; Z68.41 Body mass index [BMI] 40.0-44.9, adult
CPT/HCPCS: 99396

== ENCOUNTER 2022-10-15 16:22 | Outpatient (REF) | payer OTHER, SELFPAY ==
--- NOTE | ~2022-10-15 | XR_ITS ---
EXAMINATION: XR ANKLE, RIGHT CLINICAL INFORMATION: Right ankle pain. COMPARISON: None available. TECHNIQUE: AP, lateral, and mortise views of the right ankle. FINDINGS: Status post ORIF of old, healed right distal fibular diaphyseal fracture with associated fixation plate and screws. No evidence of hardware fracture or loosening. No acute fracture identified. Alignment is anatomic. No erosions. Well-corticated ossific density medial to the talus, possibly representing an old avulsion fragment or accessory ossicle. Plantar calcaneal spur. Joint spaces appear maintained. Soft tissues appear unremarkable. XR/XR ankle RT 2V IMPRESSION: No acute finding.
== END 2022-10-15 16:23 | disposition home or self-care (01) ==
LOC: HO.XRAY 16:22
PROVIDERS: PCP Internal Medicine; Visit Provider Internal Medicine
DX: M25.571 Pain in right ankle and joints of right foot (principal)
CPT/HCPCS: 73600

== ENCOUNTER 2023-03-17 19:17 | Emergency (ER) | payer OTHER, SELFPAY ==
--- NOTE | 2023-03-17 19:24 | ED.ABDPAIN ---
HPI - Abdominal Pain General Chief Complaint: Abdominal Pain Stated Complaint: lower abd pain,nausea Time Seen by Provider: 03/17/23 22:09 History of Present Illness HPI narrative: The patient is a 43-year-old woman who presents with 2 days of upper abdominal pain that she feels mostly in the left upper abdomen and in the left back. She has a history of a cholecystectomy. She has had many previous episodes of similar pains in the past. She had a CT scan in March [address] scan in July of 2022 for similar pains. These scans were nondiagnostic although they showed an asymptomatic right-sided kidney stone. The patient says that her current episode began about 2 days ago and is similar to previous episodes. No fevers. She says that she came to the emergency room 2 days ago on Wednesday but the waiting room was so full she did not stated check-in. Related Data Home Medications Medication Instructions Recorded Confirmed citalopram 40 mg tablet 40 mg PO BEDTIME 12/04/19 10/13/22 lorazepam 1 mg tablet 1 mg PO TID PRN Anxiety 12/04/19 10/13/22 gabapentin 100 mg capsule 100 mg PO BEDTIME 05/13/22 10/13/22 risperidone 1 mg tablet 0.5 mg PO QAM 05/13/22 10/13/22 zolpidem 10 mg tablet 10 mg PO BEDTIME PRN insomnia 05/13/22 10/13/22 Previous Rx's Medication Instructions Recorded dicyclomine 20 mg tablet 20 mg PO QID #20 tabs 07/30/22 cholecalciferol (vitamin D3) 50 50 mcg PO DAILY 90 days #90 caps 09/08/22 mcg (2,000 unit) capsule lactulose 10 gram/15 mL (15 mL) 10 g (15 mL) PO DAILY PRN 10/13/22 oral solution constipation 90 days #1,440 mL omeprazole 40 mg capsule,delayed 40 mg PO DAILY #30 caps 03/17/23 release sucralfate 1 gram tablet 1 g PO TID PRN abdominal pain #60 03/17/23 tabs Allergies Allergy/AdvReac Type Severity Reaction Status Date / Time ferrous sulfate Allergy Severe abdominal Verified 03/17/23 19:25 pain Sulfa (Sulfonamide Allergy Severe RASH, Verified 03/17/23 19:25 Antibiotics) TROUBLE SWALLOWING, DIFFICULTY BREATHING, anaphylaxis venlafaxine [From Effexor] Allergy Severe anaphylaxis/tongue Verified 03/17/23 19:25 swelling ibuprofen [From MOTRIN] Allergy Intermediate SHORTNESS Verified 03/17/23 19:25 OF BREATH morphine [MORPHINE] Allergy Intermediate NAUSEA/VOMITING, Verified 03/17/23 19:25 anaphylaxis aspirin [Aspirin] Allergy Mild hives/rash/SOB/difficulty Verified 03/17/23 19:25 swallowing/throat swelling hydromorphone [From DILAUDID] AdvReac Intermediate DYSPHORIA Verified 03/17/23 19:25 Review of Systems Review of Systems Yes all other systems are reviewed and are negative PMFSH Past Medical History Onset Date is defined in the Problem List Problems that require an onset date and time if occurred within 24 hrs of arrival to the ED Aortic Dissection and Rupture; Neurologic impairment; Cardiopulmonary Arrest; Endotracheal Intubation; Insertion or Replacement of Mechanical Circulatory Assist Device Medical History B12 deficiency Chronic fatigue Depression with anxiety History of cocaine use Hypovitaminosis D Iron deficiency anemia Surgical History H/O section H/O tubal ligation History of ankle surgery Hx of breast reduction, elective Hx of cholecystectomy Family History Family History (Updated 10/13/22 @ 14:44 by Emily Hill MD) Father HTN (hypertension) Liver disease due to alcohol Mother HTN (hypertension) Diabetes Maternal Aunt Breast cancer Uterine cancer Maternal Uncle Breast cancer Paternal Grandmother Uterine cancer Social History Social History Housing: Apartment Alcohol intake: never Patient Tobacco Use Status: Current someday Tobacco user Cigarettes Per Day: 1 e-Cigarette/Vaping Use: Never Used Advance Directives: No Advance Directives Information Provided: No service: No Current occupational status: employed 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 She looks mildly uncomfortable but not acutely ill. HENMT Other: Face is symmetrical. Mucous membranes moist. Eyes Other: Pupils are round equal, conjunctivae are clear, extraocular movements are intact. Resp Other: Lungs are clear bilaterally. Cardio Other: The patient has a regular rate and rhythm. No murmur. She is not tachycardic. GI Other: The patient is tender in the epigastrium in the left upper quadrant. The right side of the abdomen is nontender as is the left lower quadrant. Skin Other: Skin is warm and dry. Neuro Other: Patient is awake and alert. Face is symmetrical. Speech is clear. Moving extremities normally. Grossly neurologically intact Extrem Other: No peripheral edema. Course Course Course Narrative: RME: 43 year-old F w/ PMHx cholecystectomy, tubal ligation, anemia, anxiety, cocaine abuse, renal stone, presenting to the ED c/o left sided abdominal pain intermittently x days worsening over the past 2 daysw/nausea & urinary frequency. denies V/D, fever, dysuria, hematuria, vaginal bleeding /d/c abdomen soft w/lower >L and periumbilical ttp Labs, UA ordered Full HPI, ROS and PE to be performed by primary ED provider. Medical Decision Making Medical Decision Making [facility] Narrative: The patient is a 43-year-old woman with a history of a cholecystectomy who presents with 2 days of abdominal pain mostly in the left upper quadrant and epigastrium. She has had previous similar episodes of pain. She was seen here in July of [address] of the abdomen and pelvis that showed no acute findings. Today her labs including CBC, LFTs, lipase, and CRP are all unremarkable. Her urine shows trace ketones but no blood or other signs of infection. Clinically the patient does not look toxic. Her abdominal exam is not a surgical exam. My overall impression is that the patient is presenting with symptoms similar to symptoms she has had in the past and which prompted the CT scan in July of 2022 and also of previous outpatient CT scan in March of 2022. I think repeating a CT scan today would likely be of little benefit. I think given the location of her discomfort and her description of the discomfort I think that something like gastritis is much more likely. She was given a GI cocktail here with some improvement. She will be discharged with a prescription for omeprazole and sucralfate. She should follow up with her PCP to discuss a referral to Gastroenterology. She should return if worse. Lab Data 03/17/23 20:40 03/17/23 20:40 Labs: Lab Results 03/17/23 Range/Units 20:40 WBC 6.7 (4.8-10.8) X10*3/uL RBC 4.29 (4.20-5.50) X10*6/uL Hgb 12.2 (12.0-16.0) g/dl Hct 37.0 (37.0-47.0) % MCV 86.2 (80.0-98.0) fL MCH 28.4 (27.0-33.0) pg MCHC 33.0 (31.0-35.0) g/dl RDW 14.5 (11.0-16.0) % Plt Count 238 (160-400) X10*3/uL MPV 8.9 L (9.4-12.3) fL Immature Gran % (Auto) 0.2 (0.0-0.4) % Neut % (Auto) 55.2 (45-73) % Lymph % (Auto) 34.7 (20-40) % [place] % (Auto) 8.6 (2-11) % Eos % (Auto) 0.8 (0-4) % Baso % (Auto) 0.5 (0-2) % Lymph # (Auto) 2.3 (1.2-4.9) X10*3/uL [place] # (Auto) 0.6 (0.1-1.2) X10*3/uL Eos # (Auto) 0.1 (0.0-0.4) X10*3/uL Baso # (Auto) 0.0 (0.0-0.2) X10*3/uL Abs Immat Gran (auto) 0.01 (0.00-0.03) X10*3/uL Absolute Neuts (auto) 3.7 (2.0-8.3) x10*3/uL Absolute Nucleated RBC 0.000 (0.0-0.012) X10*3/uL Nucleated RBC % (auto) 0.0 (0.0-0.2) /100WBC Sodium 140 (135-145) mmol/L Potassium 3.7 (3.3-5.1) mmol/L Chloride 107 (96-108) mmol/L Carbon Dioxide 25 (22-29) mmol/L Anion Gap 12 (12-20) BUN 10 (9-16) mg/dL Creatinine 0.78 (0.5-1.4) mg/dL Estim Creat Clear Calc 103.2 Estimated GFR > 60 Random Glucose 84 (60-115) mg/dL Calcium 9.4 (8.4-10.2) mg/dL Magnesium 2.0 (1.6-2.6) mg/dL Total Bilirubin 0.5 (0.0-1.0) mg/dL Direct Bilirubin 0.2 (0.0-0.5) mg/dL AST 23 (5-31) U/L ALT 27 (0-31) U/L Alkaline Phosphatase 50 (39-117) U/L C-Reactive Protein 0.21 (< or = 0.50) mg/dL Total Protein 7.7 (6.5-8.0) g/dL Albumin 4.6 (3.5-5.0) g/dL Lipase 20 (8-78) U/L Urine Color Yellow Urine Appearance Clear Urine pH 6.5 (5.0-9.0) Ur Specific [place] 1.025 (1.005-1.025) Urine Protein Negative (Neg-Trace) mg/dL Urine Glucose (UA) Negative (Negative) mg/dL Urine Ketones Trace (Negative) mg/dL Urine Blood Negative (Negative) Urine Nitrite Negative (Negative) Ur Leukocyte Esterase Negative (Negative) Urine Test NEGATIVE (NEGATIVE) Medications Administered Discontinued Medications Generic Name Dose Route Start Last Admin Trade Name Freq PRN Reason Stop Dose Admin Al Hydroxide/Mg Hydroxide 30 ml 03/17/23 22:32 03/17/23 22:54 Magnesium Hydrox/Alum Hydrox 30 Ml Oral.Susp PO 03/17/23 22:33 30 ml ONCE ONE Administration Lidocaine HCl 15 ml 03/17/23 22:32 03/17/23 22:54 Lidocaine Hcl Viscous 2 % 15 Ml Solution MUCOUS MEM 03/17/23 22:33 15 ml ONCE ONE Administration Discharge Plan Discharge Clinical Impression: Acute upper abdominal pain Patient Disposition: Home, Self-Care Instructions: Gastritis (ED) Additional Instructions: Your blood and urine testing today is very reassuring. I think that your pain is most likely related to stomach acid problems. We call this kind of pain gastritis. Gastritis is a condition in which the lining of the stomach is irritated by stomach acid. Please take the omeprazole once a day. Take this regularly for 30 days. I have also sent a prescription for a 2nd medication called sucralfate that you may use on a more as-needed basis for times when your pain returns despite the omeprazole. You may take the sucralfate up to 3 times a day. Do not take this medication within an hour of taking other medications. Please follow-up soon with your regular doctor to discuss this further. You may wish to be referred to a smart energy specialist. Return to the emergency room if you are significantly worse. Prescriptions: New omeprazole 40 mg capsule,delayed release(DR/EC) 40 mg PO DAILY Qty: 30 0RF sucralfate 1 gram tablet 1 g PO TID PRN (Reason: abdominal pain) Qty: 60 0RF No Action cholecalciferol (vitamin D3) 50 mcg (2,000 unit) capsule 50 mcg PO DAILY 90 Days Qty: 90 1RF dicyclomine 20 mg tablet 20 mg PO QID Qty: 20 0RF Rx Instructions: take 30 minutes before eating and 30 minutes before bed as needed lactulose 10 gram/15 mL (15 mL) solution 10 g PO DAILY PRN (Reason: constipation) 90 Days Qty: 1440 0RF citalopram 40 mg tablet 40 mg PO BEDTIME lorazepam 1 mg tablet 1 mg PO TID PRN (Reason: Anxiety) zolpidem 10 mg tablet 10 mg PO BEDTIME PRN (Reason: insomnia) gabapentin 100 mg capsule 100 mg PO BEDTIME risperidone 1 mg tablet 0.5 mg PO QAM Rx Instructions: & 1 mg QHS Referrals: Emily Orellana MD [Primary Care Provider] - Interventions: ED Discharge Assessment Last Done: 03/17/23 23:48 Discharge Date/Time: 03/17/23 23:48
[2023-03-17 19:25] VITALS: BP 144/64; PULSE 72; RESP 18; TEMP 36.6; O2SAT 100; BMI 42.1
[2023-03-17 20:49] LABS: MANUAL DIFF FLAG NO
[2023-03-17 20:51] LABS: Basophils Percent Auto 0.5 % (0-2); Eosinophils Absolute Auto 0.1 X10*3/uL (0.0-0.4); Eosinophils Percent Auto 0.8 % (0-4); Hemoglobin 12.2 g/dl (12.0-16.0); Imm Gran Abs Auto 0.01 X10*3/uL (0.00-0.03); Imm Gran Pct Auto 0.2 % (0.0-0.4); Lymphocytes Absolute Auto 2.3 X10*3/uL (1.2-4.9); Lymphocytes Percent Auto 34.7 % (20-40); Mean Corpuscular Hemoglobin 28.4 pg (27.0-33.0); Mean Corpuscular Volume 86.2 fL (80.0-98.0); Mean Platelet Volume 8.9 fL (9.4-12.3); Monocytes Absolute Auto 0.6 X10*3/uL (0.1-1.2); Monocytes Percent Auto 8.6 % (2-11); Neutrophils Absolute Auto 3.7 x10*3/uL (2.0-8.3); Neutrophils Percent Auto 55.2 % (45-73); Platelet Count 238 X10*3/uL (160-400); Red Blood Count 4.29 X10*6/uL (4.20-5.50); Red Cell Distribution Width 14.5 % (11.0-16.0); White Blood Count 6.7 X10*3/uL (4.8-10.8)
[2023-03-17 20:53] LABS: Appearance Urine Clear; Color Urine Yellow; Glucose Urine UA Negative (Negative); Leukocyte Esterase Urine Negative (Negative); Nitrite Urine Negative (Negative); PH 6.5 (5.0-9.0); Specific Gravity - Urine 1.025 (1.005-1.025); Urine Blood Negative (Negative); Urine Ketones Trace mg/dL (Negative); Urine Protein Negative (Neg-Trace)
[2023-03-17 20:56] LABS: UPreg QC Valid YES; Urine Pregnancy NEGATIVE (NEGATIVE)
[2023-03-17 21:03] LABS: Alanine Aminotransferase 27 U/L (0-31); Albumin Level 4.6 g/dL (3.5-5.0); Alkaline Phosphatase 50 U/L (39-117); Anion Gap 12 (12-20); Aspartate Amino Transferase 23 U/L (5-31); Bilirubin Direct 0.2 mg/dL (0.0-0.5); Bilirubin Total 0.5 mg/dL (0.0-1.0); Blood Urea Nitrogen 10 mg/dL (9-16); Calcium 9.4 mg/dL (8.4-10.2); Carbon Dioxide 25 mmol/L (22-29); Chloride 107 mmol/L (96-108); Creatinine Clr Calc Pharmacy 103.2; Estimated Glomerular Filt Rate > 60; Glucose Random 84 mg/dL (60-115); Lipase 20 U/L (8-78); Potassium 3.7 mmol/L (3.3-5.1); Sodium 140 mmol/L (135-145); Total Protein 7.7 g/dL (6.5-8.0)
[2023-03-17 22:00] VITALS: BP 126/69; PULSE 68; RESP 16; TEMP 36.6; O2SAT 100
[2023-03-17 22:45] LABS: C Reactive Protein 0.21 mg/dL (< or = 0.50)
[2023-03-17] MEDS: Lidocaine HCl Viscous 2 % 15 ML SOLUTION MUCOUS MEM (22:54)
[2023-03-17] MEDS: Magnesium Hydrox/Alum Hydrox 30 ML ORAL.SUSP PO (22:54)
== END 2023-03-17 23:48 | disposition home or self-care (01) ==
PROVIDERS: Physician Assistant; Emergency Provider Emergency Medicine; PCP Internal Medicine
DX: R10.12 Left upper quadrant pain (principal)
CPT/HCPCS: 36415; 80048; 80076; 81003; 81025; 83690; 83735; 85025; 86140; 99283

== ENCOUNTER 2023-06-24 12:25 | Outpatient (REF) | payer OTHER, SELFPAY ==
[2023-06-24 14:13] LABS: Hemoglobin 12.7 g/dl (12.0-16.0); Mean Corpuscular HGB Conc 33.4 g/dl (31.0-35.0); Mean Corpuscular Hemoglobin 28.7 pg (27.0-33.0); Mean Corpuscular Volume 85.8 fL (80.0-98.0); Mean Platelet Volume 9.1 fL (9.4-12.3); Platelet Count 290 X10*3/uL (160-400); Red Blood Count 4.43 X10*6/uL (4.20-5.50); Red Cell Distribution Width 13.5 % (11.0-16.0); White Blood Count 6.7 X10*3/uL (4.8-10.8)
[2023-06-24 15:14] LABS: HCG Quantitative < 2 mIU/mL; TSH reflex Free T4 1.28 uIU/mL (0.32-4.0)
[2023-06-24 17:26] LABS: CT PCR NOT DETECTED (Not Detect.); NG PCR NOT DETECTED (Not Detect.)
[2023-06-30 15:49] LABS: Testosterone, Free 1.8 pg/mL (0.1-6.4); Testosterone, Total 25 ng/dL (2-45)
== END 2023-06-24 12:26 | disposition home or self-care (01) ==
LOC: HO.LAB 12:25
PROVIDERS: PCP Internal Medicine; Visit Provider Obstetrics & Gynecology
DX: Z01.419 Encounter for gynecological examination (general) (routine) without abnormal findings (principal); R10.2 Pelvic and perineal pain; L68.0 Hirsutism; N93.9 Abnormal uterine and vaginal bleeding, unspecified
CPT/HCPCS: 0353U; 36415; 83498; 84146; 84402; 84403; 84443; 84702; 85027

== ENCOUNTER 2023-06-24 12:25 | Outpatient (AMB) | payer OTHER, SELFPAY ==
[2023-06-24 12:41] VITALS: BP 120/74; BMI 41.0
--- NOTE | 2023-06-24 12:41 | A.OFFVIS_ITS ---
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: No Information Interpreted: non-clinical & clinical Farm Marketer: Farm Marketer Present (Clari Bravo ALLISON) Accompanied by: Self / Same As Patient Allergies ferrous sulfate Allergy (Severe, Verified 06/24/23 12:50) abdominal pain Sulfa (Sulfonamide Antibiotics) Allergy (Severe, Verified 06/24/23 12:50) RASH, TROUBLE SWALLOWING, DIFFICULTY BREATHING, anaphylaxis venlafaxine [From Effexor] Allergy (Severe, Verified 06/24/23 12:50) anaphylaxis/tongue swelling ibuprofen [From MOTRIN] Allergy (Intermediate, Verified 06/24/23 12:50) SHORTNESS OF BREATH morphine [MORPHINE] Allergy (Intermediate, Verified 06/24/23 12:50) NAUSEA/VOMITING, anaphylaxis aspirin [Aspirin] Allergy (Mild, Verified 06/24/23 12:50) hives/rash/SOB/difficulty swallowing/throat swelling hydromorphone [From DILAUDID] Adverse Reaction (Intermediate, Verified 06/24/23 12:50) DYSPHORIA Is last menstrual period known: Yes Last menstrual period: 06/24/23 HPI Comments Details: Presenting for annual exam. No complaints. Last Pap/HPV was negative in 08/27 Last Mammogram was BI-RADS 2 in 02/24 No previous screening colonoscopy PFSH Medical History Hypovitaminosis D B12 deficiency Depression with anxiety History of cocaine use Chronic fatigue Iron deficiency anemia Surgical History History of ankle surgery Hx of cholecystectomy H/O tubal ligation H/O section Hx of breast reduction, elective Family History Father HTN (hypertension) Liver disease due to alcohol Mother HTN (hypertension) Diabetes Maternal Aunt Breast cancer Uterine cancer Maternal Uncle Breast cancer Paternal Grandmother Uterine cancer Social History Housing: Apartment Alcohol intake: never Patient Tobacco Use Status: Current someday Tobacco user Cigarettes Per Day: 1 e-Cigarette/Vaping Use: Never Used service: No Current occupational status: employed 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 [employer] Cognitive needs: No Hearing needs: No Vision needs: No Female Reproductive History Menstrual Age of Menarche: 9 Date of last menstrual period: 06/24/23 Date of last pap smear: 08/20/21 Date of Mammogram: 02/06/20 Review of Systems Const All systems reviewed & are unremarkable except as noted in HPI and below Card Reports as per HPI Resp Reports as per HPI GI Reports as per HPI and Reports no additional complaints Reports as per HPI Physical Exam Vital Signs: Last Vital Signs BP 120/74 06/24/23 12:41 BMI result Body Mass Index 41.0 Const General: cooperative, healthy appearing and comfortable Chest Chest palpation & inspection: normal inspection of the chest and normal palpation of entire chest wall Breast/axilla inspection: normal inspection of the breasts and normal inspection of the axillae Breast/axilla palpation: normal palpation of the breasts, normal palpation of the axillae and no axillary lymphadenopathy Resp Effort & Inspection: normal respiratory effort Auscultation: clear to auscultation bilaterally Percussion: percussion normal Cardio Palpation: normal PMI Rate: regular rate Rhythm: regular rhythm Heart sounds: no murmurs and no rubs Peripheral pulses: Peripheral pulses 2+ throughout GI Inspection: Yes normal to inspection Palpation (GI): Soft to palpation, nontender, no guarding, not rigid and No hepatosplenomegaly present Percussion: Yes normal to percussion Auscultation: normal bowel sounds Rectal Exam - Female: deferred General: Yes bladder normal to palpation External Female Exam: No lesion Speculum Exam - Vagina: normal appearance of the vagina, normal palpation, normal vaginal discharge and not erythematous Speculum Exam - Cervix: normal appearance of the cervix and normal palpation Bimanual exam- vagina & uterus: normal bimanual exam, normal palpation, uterine size normal, bladder normal to palpation, consistency normal and normal palpation Bimanual Exam- Adnexa, other: normal adnexae, no masses and no tenderness Quality Reporting (2019) Adult ([facility] 138/04/29/68) Smoking risk assessment performed?: Yes Patient Tobacco Use Status: Current someday Tobacco user Assessment & Plan Assessment & Plan (1) Well woman exam: Code(s): Z01.419 - Encounter for gynecological examination (general) (routine) without abnormal findings Category: Medical Plan: Cotesting not indicated this year. Mammogram ordered. Counseled the patient about the recommended dietary allowance of 1000 mg of Calcium & 600 IU of vitamin D. The patient was refer to GI for screening colonoscopy The patient was instructed to perform monthly self-breast exams and to schedule an annual exam in a year; All questions answered and the patient verbalized understanding. Instructed the patient to schedule annual exam in a year (2) Abnormal uterine bleeding (AUB): Code(s): N93.9 - Abnormal uterine and vaginal bleeding, unspecified Category: Medical Plan: GC and chlamydia taken CBC, prolactin, TSH, HCG, and pelvic ultrasound ordered. Discussed with the patient the different causes of abnormal bleeding including thyroid disorders, uterine and ovarian pathology, endometrial hyperplasia, carcinoma and other potential causes. Discussed with the patient the work up including CBC (to r/o anemia), TSH, pelvic Ultrasound, endometrial biopsy to r/o endometrial pathology. All questions answered and the patient verbalized understanding. Instructed the patient to schedule an appointment for an endometrial biopsy in 2 weeks. (3) Hirsutism: Code(s): L68.0 - Hirsutism Category: Medical Plan: Seventeen hydroxyprogesterone and total and free testosterone ordered will check the results and treat accordingly. (4) Pelvic pain: Code(s): R10.2 - Pelvic and perineal pain Category: Medical Plan: Urine test done in the office was negative. GC and chlamydia taken and pelvic ultrasound ordered. Urine dip defer till next visit since the patient is on her menstrual cycle. Discussed with the patient the differential diagnosis of pelvic pain including but not limited to adnexal, uterine masses, pelvic infections (PID), GI the (Irritable bowel syndrome, diverticulitis, others), musculoskeletal, myofascial pain abdominal wall , adhesions, endometriosis, psychological and others causes. Will check results and treat accordingly. All questions answered, the patient verbalized understanding. Instructed the patient to schedule follow-up appointment in 2 weeks Orders: Orders HCG Quantitative Today N93.9 - Abnormal uterine and vaginal bleeding, unspecified MM tomosynthesis screening BI Today Z12.31 - Encounter for screening mammogram for malignant neoplasm of breast TSH reflex Free T4 Today N93.9 - Abnormal uterine and vaginal bleeding, unspecified Prolactin Today N93.9 - Abnormal uterine and vaginal bleeding, unspecified Complete Blood Count no Diff Today N93.9 - Abnormal uterine and vaginal bleeding, unspecified US pelvic and transvaginal Today N93.9 - Abnormal uterine and vaginal bleeding, unspecified Testosterone, Free/Total Today L68.0 - Hirsutism 17 Hydroxyprogesterone Today L68.0 - Hirsutism Referrals Gastroenterology Referral Z12.11 - Encounter for screening for malignant neoplasm of colon
== END 2023-06-24 13:02 | disposition home or self-care (01) ==
PROVIDERS: PCP Internal Medicine; Visit Provider Obstetrics & Gynecology
DX: Z01.419 Encounter for gynecological examination (general) (routine) without abnormal findings (principal); N93.9 Abnormal uterine and vaginal bleeding, unspecified; L68.0 Hirsutism; R10.2 Pelvic and perineal pain
CPT/HCPCS: 99396

== ENCOUNTER 2023-06-24 13:21 | Outpatient (REF) | payer OTHER, SELFPAY | END 2023-06-24 13:22 | disposition home or self-care (01) | LOC: HO.LNP 13:21 | PROVIDERS: Visit Provider Obstetrics & Gynecology | DX: Z13.89 Encounter for screening for other disorder (principal) ==

== ENCOUNTER 2023-06-29 12:55 | Outpatient (REF) | payer OTHER, SELFPAY ==
--- NOTE | ~2023-06-29 | US_ITS ---
EXAMINATION: US PELVIS CLINICAL INFORMATION: Abnormal uterine and vaginal bleeding. COMPARISON: CT abdomen and pelvis 07/30/2022 and pelvic ultrasound 10/03/2021. TECHNIQUE: Ultrasound of the pelvis is performed using both transabdominal and transvaginal transducers along with Doppler. Transvaginal imaging is performed due to inadequate visualization transabdominally. FINDINGS: UTERUS: The uterus is anteverted and measures 10.6 x 4.5 x 6.3 cm. The double wall endometrial thickness is 8 mm. The uterus is smooth in contour and has heterogeneous myometrial echogenicity. No visible fibroid. ADNEXA: Both ovaries are visualized. There is normal color flow to the adnexa. There is no ovarian torsion. There is no pelvic ascites or fluid collection. Right ovary measures 2.4 x 3.5 x 2.0 cm for a volume of 8.8 mL which includes a 2.2 cm benign-appearing cyst. No followup is recommended. Left ovary measures 2.7 x 3.2 x 1.8 cm for a volume of 8.1 mL and appears normal. US/US pelvic and transvaginal IMPRESSION: No significant abnormality is seen.
== END 2023-06-29 12:56 | disposition home or self-care (01) ==
LOC: HO.US 12:55
PROVIDERS: PCP Internal Medicine; Visit Provider Obstetrics & Gynecology
DX: N93.9 Abnormal uterine and vaginal bleeding, unspecified (principal)
CPT/HCPCS: 76830; 76856

== ENCOUNTER 2023-08-09 09:01 | Outpatient (AMB) | payer OTHER, SELFPAY ==
--- NOTE | 2023-08-09 09:05 | MHC.OFFVIS ---
Vital Signs 08/09/23 09:06 Height 5 ft 2 in Weight 229 lb 8 oz BMI 42.0 BP 116/74 Blood Pressure Location Lt brachial Position Sitting Intake Visit Reasons: Ultrasound follow up/ EMB Allergies ferrous sulfate Allergy (Severe, Verified 08/09/23 09:10) abdominal pain Sulfa (Sulfonamide Antibiotics) Allergy (Severe, Verified 08/09/23 09:10) RASH, TROUBLE SWALLOWING, DIFFICULTY BREATHING, anaphylaxis venlafaxine [From Effexor] Allergy (Severe, Verified 08/09/23 09:10) anaphylaxis/tongue swelling ibuprofen [From MOTRIN] Allergy (Intermediate, Verified 08/09/23 09:10) SHORTNESS OF BREATH morphine [MORPHINE] Allergy (Intermediate, Verified 08/09/23 09:10) NAUSEA/VOMITING, anaphylaxis aspirin [Aspirin] Allergy (Mild, Verified 08/09/23 09:10) hives/rash/SOB/difficulty swallowing/throat swelling hydromorphone [From DILAUDID] Adverse Reaction (Intermediate, Verified 08/09/23 09:10) DYSPHORIA Is last menstrual period known: Yes Last menstrual period: 07/19/23 Post menopausal: No Patient : No HPI Comments Details: Presenting for EMB [facility] Medical History Hypovitaminosis D B12 deficiency Depression with anxiety History of cocaine use Chronic fatigue Iron deficiency anemia Surgical History History of ankle surgery Hx of cholecystectomy H/O tubal ligation H/O section Hx of breast reduction, elective Family History Father HTN (hypertension) Liver disease due to alcohol Mother HTN (hypertension) Diabetes Maternal Aunt Breast cancer Uterine cancer Maternal Uncle Breast cancer Paternal Grandmother Uterine cancer Social History Housing: Apartment Alcohol intake: never Patient Tobacco Use Status: Current someday Tobacco user Cigarettes Per Day: 1 e-Cigarette/Vaping Use: Never Used Patient : No service: No Current occupational status: employed 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 Cognitive needs: No Hearing needs: No Vision needs: No Female Reproductive History Menstrual Age of Menarche: 9 Duration of menses: 6-7 days Date of last menstrual period: 07/19/23 control method: none Total pregnancies: 3 Full term: 3 Number of Living Children: 3 Date of last pap smear: 08/20/21 History of abnormal pap smear: No History of STI: Yes Date of Mammogram: 02/06/20 History of abnormal mammogram: No Physical Exam Vital Signs: Last Vital Signs BP 116/74 08/09/23 09:06 BMI result Body Mass Index 42.0 Office Procedures Endometrial Biopsy Details: The patient was counseled regarding the indication and benefits of endometrial sampling to rule out endometrial pathology including not limited to endometrial hyperplasia or endometrial cancer and others; The alternatives (Either do nothing vs. hysteroscopy D&C) & the risks were discussed with the patient including but not limited: pain, uterine perforation, bleeding, infection, possible injury to bladder, bowel, ureter, possible need for blood transfusion with all its possible risks. The patient verbalized understanding all questions answered and signed consent. Urine test done in the office was negative The patient was placed into the dorsal lithotomy position; a speculum was inserted in the vagina. Using aseptic technique for the procedure, the cervix was cleansed with Betadine. The anterior lip of the cervix was grasped with a single tooth tenaculum. The uterus was sounded to 10 cm with a 4 mm Pipelle was used. Tissues samples were obtained and placed in formalin, in a patient labeled container and sent to the pathology department. At the end of the procedure, there was minimal bleeding noted The patient tolerated the procedure well and was discharged in good condition with the following instructions: Nothing in the vagina until the bleeding stops. No sex until the bleeding stops, to call if any of the following occurs: fever (>100.4), flu-like symptoms, abdominal pain, heavy bleeding, four smelling vaginal discharge. The patient was instructed to schedule a Follow up appointment in 2 weeks to discuss pathology results of the biopsy and treatment options. This note was generated with a voice recognition program. Some errors may have been overlooked during the review of this note. Sometimes these errors may affect the content or meaning of a given sentence. [id number] Biopsy Results AMB Test Urine AMB Test Urine Negative Last Edit by Britney Rapp CMA on 08/09/23 09:19 Quality Reporting (2019) Adult ([facility] 138/04/29/68) Smoking risk assessment performed?: Yes Patient Tobacco Use Status: Current someday Tobacco user Results Reviewed Results Reviewed: Laboratory Last Values Tst Clinic Negative 08/09/23 09:19 Assessment & Plan Assessment & Plan (1) Abnormal uterine bleeding (AUB): Code(s): N93.9 - Abnormal uterine and vaginal bleeding, unspecified Category: Medical Plan: EMB done, see procedure note Orders: Orders AMB HCG Urine Test Today Z32.02 - Encounter for test, result negative AMB Endometrial Biopsy Today N93.9 - Abnormal uterine and vaginal bleeding, unspecified Coding Level of Care Code Procedure Only Diagnoses Abnormal uterine bleeding (AUB) N93.9 CPT Codes Endometrial Biopsy - CPT: 28856-Wxcavjakvqk Biopsy ([id number])
[2023-08-09 09:06] VITALS: BP 116/74; BMI 42.0
== END 2023-08-09 09:30 | disposition home or self-care (01) ==
PROVIDERS: PCP Internal Medicine; Visit Provider Obstetrics & Gynecology
DX: N93.9 Abnormal uterine and vaginal bleeding, unspecified (principal); Z32.02 Encounter for pregnancy test, result negative
CPT/HCPCS: 58100

== ENCOUNTER 2023-08-09 09:01 | Outpatient (REF) | payer OTHER, SELFPAY | END 2023-08-09 09:02 | disposition home or self-care (01) | LOC: HO.LNP 09:01 | PROVIDERS: PCP Internal Medicine; Visit Provider Obstetrics & Gynecology | DX: N93.9 Abnormal uterine and vaginal bleeding, unspecified (principal); Z32.02 Encounter for pregnancy test, result negative | CPT/HCPCS: 58100; 81025; 88305 ==

== ENCOUNTER 2023-10-04 10:56 | Outpatient (AMB) | payer OTHER, SELFPAY ==
[2023-10-04 11:09] VITALS: BMI 41.9
--- NOTE | 2023-10-04 11:09 | MHC.OFFVIS ---
Vital Signs 10/04/23 11:09 Height 5 ft 2 in Weight 229 lb 4.492 oz BMI 41.9 Intake Visit Reasons: EMB results/DO NOT RS Allergies ferrous sulfate Allergy (Severe, Verified 08/09/23 09:10) abdominal pain Sulfa (Sulfonamide Antibiotics) Allergy (Severe, Verified 08/09/23 09:10) RASH, TROUBLE SWALLOWING, DIFFICULTY BREATHING, anaphylaxis venlafaxine [From Effexor] Allergy (Severe, Verified 08/09/23 09:10) anaphylaxis/tongue swelling ibuprofen [From MOTRIN] Allergy (Intermediate, Verified 08/09/23 09:10) SHORTNESS OF BREATH morphine [MORPHINE] Allergy (Intermediate, Verified 08/09/23 09:10) NAUSEA/VOMITING, anaphylaxis aspirin [Aspirin] Allergy (Mild, Verified 08/09/23 09:10) hives/rash/SOB/difficulty swallowing/throat swelling hydromorphone [From DILAUDID] Adverse Reaction (Intermediate, Verified 08/09/23 09:10) DYSPHORIA HPI Comments Details: The patient is presenting for follow-up to discuss the results of her abnormal uterine bleeding workup and options of treatment. The following workup was done.: H&H= 12.7/38 TSH, prolactin, hCG, GC and chlamydia were negative. Seventeen hydroxyprogesterone testosterone total and free within normal Endometrial biopsy pathology showed secretory endometrium with no evidence of hyperplasia and/or malignancy. Co testing was done in 08/27 was negative. Pelvic ultrasound was unremarkable [facility] Medical History Hypovitaminosis D B12 deficiency Depression with anxiety History of cocaine use Chronic fatigue Iron deficiency anemia Surgical History History of ankle surgery Hx of cholecystectomy H/O tubal ligation H/O section Hx of breast reduction, elective Family History Father HTN (hypertension) Liver disease due to alcohol Mother HTN (hypertension) Diabetes Maternal Aunt Breast cancer Uterine cancer Maternal Uncle Breast cancer Paternal Grandmother Uterine cancer Social History Housing: Apartment Alcohol intake: never Patient Tobacco Use Status: Current someday Tobacco user Cigarettes Per Day: 1 e-Cigarette/Vaping Use: Never Used service: No Current occupational status: employed 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 Cognitive needs: No Hearing needs: No Vision needs: No Female Reproductive History Menstrual Age of Menarche: 9 Review of Systems Const All systems reviewed & are unremarkable except as noted in HPI and below Reports as per HPI and Reports no additional complaints GI Reports no additional complaints Reports no additional complaints Physical Exam Vital Signs: BMI result Body Mass Index 41.9 Quality Reporting (2019) Adult ([facility] ) Smoking risk assessment performed?: Yes Patient Tobacco Use Status: Current someday Tobacco user Assessment & Plan Assessment & Plan (1) Abnormal uterine bleeding (AUB): Code(s): N93.9 - Abnormal uterine and vaginal bleeding, unspecified Category: Medical Plan: Discussed with the patient the results of the work up done and options of treatment including Lysteda, BCP's, Mirena IUD, endometrial ablation and hysterectomy. All pros, cons, risks and benefits if each option was discussed with the patient and the patient decided to think about it and get back to us. All questions answered the patient verbalized understanding. (2) Hirsutism: Code(s): L68.0 - Hirsutism Category: Medical Plan: Discussed with the patient the results of her androgen levels within normal 17 hydroxyprogesterone, free and total testosterone. Will refer to Reproductive Endocrinology for further management Orders: Referrals Reproductive Endocrinology L68.0 - Hirsutism Coding Level of Care Code Est Pt Level 3 (71692) Diagnoses Abnormal uterine bleeding (AUB) N93.9 Hirsutism L68.0
== END 2023-10-04 12:07 | disposition home or self-care (01) ==
LOC: HO.HWS 10:56
PROVIDERS: PCP Internal Medicine; Visit Provider Obstetrics & Gynecology
DX: N93.9 Abnormal uterine and vaginal bleeding, unspecified (principal); L68.0 Hirsutism
CPT/HCPCS: 99213

== ENCOUNTER → 2023-10-04 10:56 | Outpatient (BNVA) | payer OTHER, SELFPAY | PROVIDERS: PCP Internal Medicine; Visit Provider Obstetrics & Gynecology | DX: N93.9 Abnormal uterine and vaginal bleeding, unspecified (principal); L68.0 Hirsutism | CPT/HCPCS: 99212 ==

== ENCOUNTER 2023-10-20 12:52 | Outpatient (AMB) | payer OTHER, SELFPAY ==
[2023-10-20 12:58] VITALS: BP 110/70; BMI 41.7
--- NOTE | 2023-10-20 12:58 | A.OFFPC_ITS ---
Vital Signs 10/20/23 12:58 Height 5 ft 2 in Weight 228 lb BMI 41.7 BP 110/70 Blood Pressure Location Lt brachial Position Sitting Intake Visit Reasons: pe Patient Financial Services Manager Required: No Accompanied by: Self / Same As Patient Allergies ferrous sulfate Allergy (Severe, Verified 10/20/23 13:11) abdominal pain Sulfa (Sulfonamide Antibiotics) Allergy (Severe, Verified 10/20/23 13:11) RASH, TROUBLE SWALLOWING, DIFFICULTY BREATHING, anaphylaxis venlafaxine [From Effexor] Allergy (Severe, Verified 10/20/23 13:11) anaphylaxis/tongue swelling ibuprofen [From MOTRIN] Allergy (Intermediate, Verified 10/20/23 13:11) SHORTNESS OF BREATH morphine [MORPHINE] Allergy (Intermediate, Verified 10/20/23 13:11) NAUSEA/VOMITING, anaphylaxis aspirin [Aspirin] Allergy (Mild, Verified 10/20/23 13:11) hives/rash/SOB/difficulty swallowing/throat swelling hydromorphone [From DILAUDID] Adverse Reaction (Intermediate, Verified 10/20/23 13:11) DYSPHORIA Medication List - Last Reconciled 10/20/23 by Emily Hill MD citalopram 40 mg PO BEDTIME gabapentin 100 mg PO BEDTIME lorazepam 1 mg PO TID PRN omeprazole 40 mg PO DAILY risperidone 0.5 mg PO QAM zolpidem 10 mg PO BEDTIME PRN Tobacco use date assessed: 10/20/23 Dental Screening Dental Screen Date: 10/20/23 Did you have a dental visit in the last 12 months?: Yes Did you have a dental problem in the last 6 months where you did not have access to dental care?: No Was dental information given to patient?: Patient has dentist HPI HPI Comments History of Present Illness Details This is a 43-year-old female with severe recurrent major depression and morbid obesity that comes for her physical exam. Depression has been follow by Psychiatry and denies any suicidal thoughts. Pap smear done 2021. Mammogram is scheduled for next month. Has not had a colonoscopy and was refer by OBGYN in June. Declines weight loss and I will start her on Wegovy. Patient aware that this medication can cause abdominal pain and nausea. She also complains of daily migraines and I will start her on Topamax at bedtime to prevent done. She is aware that it can cause sleepiness. She also has diffuse joint pain that has been present for years and is allergic to ibuprofen therefore I will give her Tylenol. [facility] Medical History (Updated 10/20/23 @ 13:31 by Emily Hill MD) Hypovitaminosis D B12 deficiency Depression with anxiety History of cocaine use Chronic fatigue Iron deficiency anemia Surgical History History of ankle surgery Hx of cholecystectomy H/O tubal ligation H/O section Hx of breast reduction, elective Family History (Updated 10/20/23 @ 13:16 by Emily Hill MD) Father HTN (hypertension) Liver disease due to alcohol Mother HTN (hypertension) Diabetes Stroke Maternal Aunt Breast cancer Uterine cancer Maternal Uncle Breast cancer Paternal Grandmother Uterine cancer Family/Other Mental health disorder Social History Housing: Apartment Alcohol intake: never Patient Tobacco Use Status: Former Tobacco user Cigarettes Per Day: 1 e-Cigarette/Vaping Use: Never Used service: No Current occupational status: employed 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 1. Little interest or pleasure in doing things: nearly every day 2. Feeling down, depressed, or hopeless: nearly every day 3. Trouble falling or staying asleep, or sleeping too much: more than half the days 4. Feeling tired or having little energy: more than half the days 5. Poor appetite or overeating: several days 6. Feeling bad about yourself - or that you are a failure or have let yourself or your family down: nearly every day 7. Trouble concentrating on things, such as reading the newspaper or watching television: more than half the days 8. Moving or speaking so slowly that other people could have noticed. Or the opposite - being so fidgety or restless that you have been moving around a lot more than usual: more than half the days 9. Thoughts that you would be better off or of hurting yourself in some way: several days Total score: 19 Depression Screening Interpretation: Positive (no suicidal thoughts) Depression Screening Follow-up: Existing condition, In treatment, Community Mental Health Worker F/U and Follow-up Visit Requested Depression Screening Done: Yes [id number] - PHQ-9 Billing: Yes Source: Developed by Drs. Chapo Licea, Carolina Valdez, Avtar Acosta and colleagues, with an educational diamond from [employer]. Thrive Questionnaire Date Thrive assessed: 10/20/23 I am a: Patient What is your living situation today?: I have a steady place to live Within the past 12 months, did the food you bought not last and you didn't have the money to get more?: Never true Within the past 12 months, did you worry whether your food would run out before you got money to buy more?: Never true Do you have trouble paying for medicines?: No Do you have trouble getting transportation to medical appointments?: No Do you have trouble paying your heating and electricity bill?: No Do you have trouble taking care of your child, family member or friend?: No Do you have trouble with day-to-day activities such as bathing, preparing meals, shopping, managing finances, etc.?: No Are you currently unemployed and looking for a job?: No Are you interested in more education?: No Please select the resources that you would like help with: None Currently or been in a relationship where the following occur: No concerns reported THRIVE Score: 0 AUDIT C Alcohol Use Questionnaire (AUDIT-C) 1. How often do you have a drink containing alcohol?: Never Total Score: 0 Score Reviewed/Action Taken: No QUINCY-7 AMB Questionnaire QUINCY-7 Date QUINCY - 7 assessed: 10/20/23 Feeling nervous, anxious, or on edge: 3 = Nearly every day Not being able to stop or control worryin = Several days Worrying too much about different things: 2 = More than half the days Trouble relaxin = More than half the days Being so restless that it is hard to sit still: 2 = More than half the days Becoming easily annoyed or irritable: 3 = Nearly every day Feeling afraid as if something awful might happen: 3 = Nearly every day Total QUINCY-7 score (0-4 normal; 5-9 mild; 10-14 moderate; 15-21 severe): 16 Source: Developed by Drs. Chapo Licea, Carolina Valdez, Avtar Acosta and colleagues, with an educational diamond from [employer]. QUINCY-7 Assessment Billing QUINCY-7 Assessment Tool: QUINCY-7 Assessment 59268 Review of Systems Const All systems reviewed & are unremarkable except as noted in HPI and below Reports headache(s) ENT Reports headache(s) Card Denies chest pain at rest, Denies chest pain with activity, Denies edema, Denies irregular heart rhythm, Denies claudication, Denies dyspnea, Denies dyspnea on exertion, Denies orthopnea, Denies paroxysmal nocturnal dyspnea and Denies slow heart rate Resp Denies cough, Denies dyspnea and Denies dyspnea on exertion GI Denies abdominal pain, Denies change in bowel habits, Denies excessive flatus, Denies nausea and Denies vomiting Musc Denies abnormal gait, Denies atrophy, Denies deformity, Reports arthralgias and Denies limited range of motion Neuro Denies abnormal gait, Reports headache(s) and Denies lack of coordination Physical exam (Primary Care) Vital Signs: Last Vital Signs BP 110/70 10/20/23 12:58 BMI result Body Mass Index 41.7 BMI Assessment/Plan discussion: High BMI High, discussed plan: lifestyle, weight reduction, dietary and physical activity Tobacco/Smoking Status: Tobacco use Status Tobacco use date assessed 10/20/23 10/20/23 13:06 Patient Tobacco Use Status Former Tobacco user 10/20/23 13:06 e-Cigarette/Vaping Use Never Used 10/20/23 13:06 PHQ-9: PHQ-9 Score PHQ-9: Total score 19 10/20/23 13:06 Depression Screening Interpretation: Positive (no suicidal thoughts) Depression Screening Follow-up: Existing condition, In treatment, Community Mental Health Worker F/U and Follow-up Visit Requested Thrive Assessment: Date of Thrive Assessment Date Thrive assessed 10/20/23 10/20/23 13:06 Currently or been in a relationship where the following occur: No concerns reported HENMT Head: Yes normal to inspection, Yes normocephalic and Yes atraumatic Ears: external ears normal Eyes General: appearance normal, both eyes and all related structures Eyelids: Yes eyelids normal Conjunctivae: conjunctivae normal Neck Neck: Yes normal visual inspection and Yes supple Resp Effort & Inspection: normal respiratory effort Auscultation: clear to auscultation bilaterally Cardio Jugular venous distension: no JVD Rate: regular rate Rhythm: regular rhythm Heart sounds: S1 normal heart sound present and S2 normal heart sound present GI Inspection: Yes normal to inspection Palpation (GI): Soft to palpation and nontender Auscultation: normal bowel sounds Skin General skin exam: no rashes or lesions noted Neuro General: no focal motor deficits Extrem General: Yes full ROM Psych Appearance: grossly normal Assessment and Plan Assessment & Plan (1) Physical exam: Code(s): Z00.00 - Encounter for general adult medical examination without abnormal findings Plan: Repeat in a year. (2) Nephrolithiasis: Code(s): N20.0 - Calculus of kidney Plan: Ultrasound ordered. (3) Morbid obesity due to excess calories: Code(s): E66.01 - Morbid (severe) obesity due to excess calories Plan: Start Wegovy. BMI goal is less than 30. (4) Migraines: Code(s): G43.909 - Migraine, unspecified, not intractable, without status migrainosus Plan: Start Topamax. (5) Severe recurrent major depression: Code(s): F33.2 - Major depressive disorder, recurrent severe without psychotic features Plan: Continue citalopram. Follow-up with psychiatry. Orders: Orders US renal BI Today N20.0 - Calculus of kidney Lipid Panel Today Z00.00 - Encounter for general adult medical examination without abnormal findings Comprehensive [place]. Panel Fast Today Z00.00 - Encounter for general adult medical examination without abnormal findings Referrals Open Access Screening Colonoscopy Referral Z12.11 - Encounter for screening for malignant neoplasm of colon Medications: New semaglutide (weight loss) (Wegovy) administer weeks 1 through 4 of therapy 0.25 mg (0.5 mL) subcut QWEEK 4 weeks 2 mL 0RF E66.01 - Morbid (severe) obesity due to excess calories topiramate 25 mg PO BEDTIME 30 days 30 tabs 0RF G43.909 - Migraine, unspecified, not intractable, without status migrainosus acetaminophen ER 650 mg PO Q8H 30 days PRN 90 tabs 0RF pain Refilled omeprazole 40 mg PO DAILY 30 caps 0RF Coding Level of Care Code Est Pt Level 3 (89822) Est Pt Prev Care 40-64y(43802) Diagnoses Physical exam Z00.00 Nephrolithiasis N20.0 Morbid obesity due to excess calories E66.01 Migraines G43.909 Severe recurrent major depression F33.2 Additional Codes QUINCY-7 Assessment Billing - QUINCY-7 Assessment Tool: QUINCY-7 Assessment 58547 ([id number]) Time Spent (min) 35
== END 2023-10-20 13:25 | disposition home or self-care (01) ==
PROVIDERS: PCP Internal Medicine; Visit Provider Internal Medicine
DX: Z00.00 Encounter for general adult medical examination without abnormal findings (principal); E66.01 Morbid (severe) obesity due to excess calories; F33.2 Major depressive disorder, recurrent severe without psychotic features; Z68.41 Body mass index [BMI] 40.0-44.9, adult; N20.0 Calculus of kidney; G43.909 Migraine, unspecified, not intractable, without status migrainosus
CPT/HCPCS: 99213; 99396

== ENCOUNTER 2023-11-13 09:45 | Outpatient (REF) | payer OTHER, SELFPAY ==
--- NOTE | ~2023-11-13 | MM_ITS ---
EXAMINATION: MM SCREENING DIGITAL BREAST TOMOSYNTHESIS, BILATERAL CLINICAL INFORMATION: Screening. Asymptomatic. COMPARISON: Mammography: Comparison is made with available priors TECHNIQUE: Digital breast mammography with tomosynthesis is performed in both the craniocaudal and mediolateral oblique views along with computer-aided detection (CAD). FINDINGS: There are scattered areas of fibroglandular density (ACR BI-RADS breast composition Category b). Bilateral reduction mammoplasty. There are no significant masses, abnormal calcifications, or other abnormalities. MM/MM tomosynthesis screening BI IMPRESSION: No mammographic evidence of malignancy. ASSESSMENT: BI-RADS BI-RADS 2 - Benign Findings RECOMMENDATION: Routine annual mammography screening. 1 year F/U This examination should not preclude the clinical evaluation of a suspicious palpable abnormality. This patient's information was entered into a reminder system with a target due date for their next mammogram. Electronically signed by: Eve Pearson DO 11/29/2023 06:17 AM EDT
== END 2023-11-13 09:46 | disposition home or self-care (01) ==
LOC: HO.MAMMO 09:45
PROVIDERS: PCP Internal Medicine; Visit Provider Internal Medicine
DX: Z12.31 Encounter for screening mammogram for malignant neoplasm of breast (principal)
CPT/HCPCS: 77063; 77067

== ENCOUNTER → 2023-11-13 10:00 | Outpatient (BNV) | payer OTHER, SELFPAY | PROVIDERS: PCP Internal Medicine; Visit Provider Internal Medicine | DX: Z12.31 Encounter for screening mammogram for malignant neoplasm of breast (principal) | CPT/HCPCS: 77063; 77067 ==

== ENCOUNTER 2023-11-18 09:38 | Outpatient (REF) | payer OTHER, SELFPAY ==
--- NOTE | ~2023-11-18 | US_ITS ---
EXAMINATION: US RETROPERITONEAL COMPLETE (RENAL) CLINICAL INFORMATION: Calculus of kidney. COMPARISON: CT abdomen and pelvis 07/30/2022. X-ray abdomen KUB 06/10/2022 and 01/08/2022. TECHNIQUE: Real-time imaging of the kidneys and bladder. FINDINGS: RIGHT KIDNEY: 11.8 x 5.2 x 6.4 cm (SAG x AP x TRV). The kidney is normal in size, contour, and echogenicity. Renal cortical thickness is normal. There is a mid renal echogenic focus measuring 1.2 x 0.5 x 1.4 cm with twinkle artifact consistent with a nonobstructing calculus as seen on the 07/30/2022 CT scan. No focal parenchymal lesions or hydronephrosis. LEFT KIDNEY: 11.4 x 5.1 x 5.5 cm (SAG x AP x TRV). The kidney is normal in size, contour, and echogenicity. Renal cortical thickness is normal. No calculi or focal parenchymal lesions. No hydronephrosis. US/US renal BI IMPRESSION: Nonobstructing right renal calculus. Electronically signed by: Jasmeet Dunham MD 11/24/2023 03:11 PM EDT
== END 2023-11-18 09:39 | disposition home or self-care (01) ==
LOC: HO.US 09:38
PROVIDERS: PCP Internal Medicine; Visit Provider Internal Medicine
DX: N20.0 Calculus of kidney (principal)
CPT/HCPCS: 76775

== ENCOUNTER 2024-01-24 10:52 | Outpatient (AMB) | payer OTHER, SELFPAY ==
--- NOTE | 2024-01-24 11:04 | A.OFFVIS_ITS ---
Intake Visit Reasons: kidney stone Intake Note: Patient present for kidney stones, patient reports that she is currently having left flank pain Urology Medications: none Blood thinner: none GLP 1 Medication: Wegovy Loading Unit Tool Setter Required: No Accompanied by: Self / Same As Patient Allergies ferrous sulfate Allergy (Severe, Verified 01/24/24 11:32) abdominal pain Sulfa (Sulfonamide Antibiotics) Allergy (Severe, Verified 01/24/24 11:32) RASH, TROUBLE SWALLOWING, DIFFICULTY BREATHING, anaphylaxis venlafaxine [From Effexor] Allergy (Severe, Verified 01/24/24 11:32) anaphylaxis/tongue swelling ibuprofen [From MOTRIN] Allergy (Intermediate, Verified 01/24/24 11:32) SHORTNESS OF BREATH morphine [MORPHINE] Allergy (Intermediate, Verified 01/24/24 11:32) NAUSEA/VOMITING, anaphylaxis aspirin [Aspirin] Allergy (Mild, Verified 01/24/24 11:32) hives/rash/SOB/difficulty swallowing/throat swelling hydromorphone [From DILAUDID] Adverse Reaction (Intermediate, Verified 01/24/24 11:32) DYSPHORIA Medication List - Last Reconciled 01/24/24 by RICH Maxwell- acetaminophen ER 650 mg PO Q8H PRN 30 days citalopram 40 mg PO BEDTIME gabapentin 100 mg PO BEDTIME lorazepam 1 mg PO TID PRN omeprazole 40 mg PO DAILY risperidone 0.5 mg PO QAM semaglutide (weight loss) (Wegovy) 0.5 mg (0.5 mL) subcut QWEEK 4 weeks topiramate 25 mg PO BEDTIME 30 days zolpidem 10 mg PO BEDTIME PRN HPI Comments Details: Ana Maria is a pleasant 43-year-old female patient of Dr. Samano. She presents to the office today for follow-up of her nephrolithiasis. In discussion with the patient today she reports ongoing left-sided back pain that radiates to the epigastric area. She reports having seeked emergency room care for this exact issue at which time a renal ultrasound was ordered the and recommendations were made for follow-up with urology to discuss nephrolithiasis. Renal ult rasound 11/29 notes there is a mid renal echogenic foci measuring 1.4 cm consistent with a nonobstructing calculus as seen on previous imaging CT 07/28. Left kidney with no nephrolithiasis. Bilateral kidneys with no lesions or hydronephrosis noted. We discussed further intervention to include ESWL versus surveillance monitoring. Risks and benefits of these interventions were discussed. Patient would like to move forward with right-sided ESWL as discussed. Information provided. We discussed potential causes of left-sided back pain that radiates to epigastric area. No CVA tenderness noted bilate rally. Discussed following up with PCP regarding this issue. In office urinalysis results reviewed with the patient today. She otherwise denies urinary urgency, urinary frequency, incontinence, nocturia, hematuria, dysuria, foul smelling urine, changes to urinary stream, fever, and or chills. [facility] Medical History Hypovitaminosis D B12 deficiency Depression with anxiety History of cocaine use Chronic fatigue Iron deficiency anemia Surgical History History of ankle surgery Hx of cholecystectomy H/O tubal ligation H/O section Hx of breast reduction, elective Family History Father HTN (hypertension) Liver disease due to alcohol Mother HTN (hypertension) Diabetes Stroke Maternal Aunt Breast cancer Uterine cancer Maternal Uncle Breast cancer Paternal Grandmother Uterine cancer Family/Other Mental health disorder Social History Housing: Apartment Alcohol intake: never Patient Tobacco Use Status: Former Tobacco user Cigarettes Per Day: 1 e-Cigarette/Vaping Use: Never Used service: No Current occupational status: employed 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 Current occupational exposures/hazards: No Cognitive needs: No Hearing needs: No Vision needs: No Female Reproductive History Menstrual Age of Menarche: 9 Review of Systems Const All systems reviewed & are unremarkable except as noted in HPI and below Physical Exam Const General: cooperative, healthy appearing, comfortable, no acute distress, well developed, alert and awake Nutritional Appearance: overweight Orientation/consciousness: patient oriented x3 Limitations: no limitations HEENT Head: Yes normal to inspection, Yes normocephalic and Yes atraumatic Ears: hearing grossly normal bilaterally Eyes General: appearance normal, both eyes and all related structures Neck Neck: Yes normal visual inspection and Yes trachea midline Chest Chest palpation & inspection: normal inspection of the chest Resp Effort & Inspection: normal respiratory effort and able to speak in complete sentences Cardio Rate: regular rate GI Inspection: Yes normal to inspection General: Yes no CVA tenderness Back/Spine/Pelvis Back: no CVA tenderness Skin General skin exam: no rashes or lesions noted Neuro General: patient oriented x3 Extrem General: Yes normal to inspection Psych Appearance: grossly normal and well kempt Mental Status: mental status grossly normal Speech and movement: Normal speech and movement present and Clear speech present Affect: normal affect Attitude: cooperative Thought process: Normal thought process present Thought content: Normal thought content present Insight: Fair insight present (Psych) Judgement: Fair judgement present (Psych) Results AMB Urinalysis, Automated UA Leukoctes 15 Janny/uL Last Edit by [employer] on 01/24/24 11:20 UA Nitrite Last Edit by [employer] on 01/24/24 11:20 UA Urobilinogen 0.2 mg/dL Last Edit by [employer] on 01/24/24 11:20 UA Protein 15 mg/dL Last Edit by [employer] on 01/24/24 11:20 UA pH 6.0 Last Edit by [employer] on 01/24/24 11:20 UA Blood 0 Robles/uL Last Edit by [employer] on 01/24/24 11:20 UA Specific [place] 1.030 Last Edit by [employer] on 01/24/24 11:20 UA Ketone Positive Last Edit by [employer] on 01/24/24 11:20 UA Bilirubin 0 mg/dL Last Edit by [employer] on 01/24/24 11:20 UA Glucose 0 mg/dL Last Edit by [employer] on 01/24/24 11:20 Quality Reporting (2019) Adult ([facility] 138/2/) Smoking risk assessment performed?: Yes Patient Tobacco Use Status: Former Tobacco user Results Reviewed Results Reviewed: Laboratory Last Values Urine pH (Auto) 6.0 01/24/24 11:19 Specific [place] (Auto) 1.030 01/24/24 11:19 Urine Protein (Auto) 15 mg/dL 01/24/24 11:19 Glucose (UA)(Auto) 0 mg/dL 01/24/24 11:19 Urine Ketones (Auto) Positive 01/24/24 11:19 Urine Blood (Auto) 0 Robles/uL 01/24/24 11:19 Urine Bilirubin (Auto) 0 mg/dL 01/24/24 11:19 Urine Urobilinogen (Auto) 0.2 mg/dL 01/24/24 11:19 Leukocyte Esterase (Auto) 15 Janny/uL 01/24/24 11:19 Date of Service: 11/18/23 EXAMINATION: US RETROPERITONEAL COMPLETE (RENAL) FINDINGS: RIGHT KIDNEY: 11.8 x 5.2 x 6.4 cm (SAG x AP x TRV). The kidney is normal in size, contour, and echogenicity. Renal cortical thickness is normal. There is a mid renal echogenic focus measuring 1.2 x 0.5 x 1.4 cm with twinkle artifact consistent with a nonobstructing calculus as seen on the 07/30/2022 CT scan. No focal parenchymal lesions or hydronephrosis. LEFT KIDNEY: 11.4 x 5.1 x 5.5 cm (SAG x AP x TRV). The kidney is normal in size, contour, and echogenicity. Renal cortical thickness is normal. No calculi or focal parenchymal lesions. No hydronephrosis. IMPRESSION: Nonobstructing right renal calculus. Assessment & Plan Assessment & Plan (1) Nephrolithiasis: Code(s): N20.0 - Calculus of kidney Category: Medical Plan: Plan Extracorporeal Shock Wave Lithotripsy We discussed the nature of the decision and reasonable alternatives for performing the above surgery. Interventions include chemical dissolution, ESWL, ureteroscopy with laser lithotripsy and stent placement, PCNL. ? Options such as medical therapy were discussed. The relative uncertainties and benefits related to each alternate procedure were adequately discussed. General surgical risks including, but not limited to, pain, bleeding, infection, myocardial infarction, pulmonary embolus, deep vein thrombosis and cerebrovascular accident which may result in further hospitalizat ion were discussed.? Full disclosure of the procedure as well as all major risks, benefits and complications were discussed including but not limited to risks of bleeding, injury to the kidney with hematoma or vincent-hematoma, failure to fragments stone, potential for ureteric obstruction from stone passage and need for secondary procedures.? There is a small long-term risk of hypertension and a question raymond of diabetes.? Success rate of fragmentation and passage is approximately 70- 75%.? This is compared to the risks and benefits for ureteroscopy which has a higher success rate but is a more invasive procedure. The success rate of the procedure was discussed. Success of the procedure in the short-term does not necessarily guarantee that long-term success will be maintained. Suitable follow up will need to be maintained. The patient showed understanding of the discussion as well as the typical recovery time, and the outpatient nature of this procedure. Opportunity was given for questions. Repeat-back protocol used to confirm understanding. They wish to proceed with right ESWL Plan In office urinalysis results reviewed with the patient today; as noted above. Recent renal imaging results reviewed with the patient today; as noted above. We discussed further treatment options to include ESWL versus surveillance monitoring; risks and benefits of these interventions were discussed. Information provided regarding ESWL. All questions were answered. We discussed potential causes of left-sided back pain and epigastric pain she has been experiencing. She otherwise denies any bothersome urinary issues. She reports be happy with current voiding parameters. Will schedule for right-sided ESWL as discussed Follow-up per doctor's orders; or sooner with any issues, concerns, and or questions. Orders: Orders AMB Urinalysis Automated Today Z13.9 - Encounter for screening, unspecified Patient Instructions: The patient had an opportunity to ask questions regarding the treatment plan. All questions were answered. Physical exam, labs, and imaging were discussed and reviewed in detail. As well as risks, benefits, and discussion of treatment choices. No major barriers to understanding were identified. The patient expressed understanding and agreement with the above treatment plan. The patient was made aware they should contact our office by phone for worsening of their current condition, the appearance of new symptoms, or with any questions or concerns. Compliance is encouraged with any medications and follow up testing that is ordered. It is a privilege to be allowed the opportunity to participate in? your urological care.? Again, if you have any questions or concerns If you have any questions or concerns please do not hesitate to contact me. The office is [phone]. This note is constructed using voice recognition software. While every effort has been made to ensure accuracy tire center supervisor errors may have been included. Yours sincerely, DANIEL Maxwell Coding Level of Care Code Est Pt Level 4 (10484) Diagnoses Nephrolithiasis N20.0
== END 2024-01-24 11:35 | disposition home or self-care (01) ==
PROVIDERS: PCP Internal Medicine; Visit Provider Nurse Practitioner Family
DX: Z13.9 Encounter for screening, unspecified (principal); N20.0 Calculus of kidney
CPT/HCPCS: 99214

== ENCOUNTER → 2024-01-24 10:52 | Outpatient (BNVA) | payer OTHER, SELFPAY | PROVIDERS: PCP Internal Medicine; Visit Provider Nurse Practitioner Family | DX: N20.0 Calculus of kidney (principal) | CPT/HCPCS: 81003; 99212 ==

== ENCOUNTER 2024-06-08 15:36 | Emergency (ER) | payer OTHER, SELFPAY ==
--- NOTE | ~2024-06-08 | XR_ITS ---
EXAMINATION: XR CHEST CLINICAL INFORMATION: chest pain COMPARISON: 07/20/2017. TECHNIQUE: 2 views of the chest were obtained. FINDINGS: The cardiac, hilar, and mediastinal contours are normal. The lungs are clear bilaterally. There is no pneumothorax or pleural effusion. There is no focal osseous or soft tissue abnormality. XR/XR chest 2V IMPRESSION: Normal chest. Electronically signed by: Rashawn Morse MD 06/08/2024 04:13 PM EDT
--- NOTE | 2024-06-08 15:39 | ECG_ITS ---
Test Reason : CHEST PAIN Blood Pressure : */* mmHG Vent. Rate : 61 BPM Atrial Rate : 61 BPM P-R Int : 120 ms QRS Dur : 78 ms QT Int : 392 ms P-R-T Axes : 25 27 36 degrees QTcB Int : 394 ms Normal sinus rhythm with sinus arrhythmia Normal ECG When compared with ECG of 08-Jun-2018 09:29, No significant change was found Referred By: Generic ED Physician Electronically Signed By: RAVIN IRWIN
[2024-06-08 15:51] VITALS: BP 108/73; PULSE 67; RESP 20; TEMP 36.6; O2SAT 100; BMI 40.0
--- NOTE | 2024-06-08 15:51 | ED.GENADULT ---
HPI - General Adult General Chief complaint: Chest Pain Stated complaint: chest pain with left arm pain Time Seen by Provider: 06/08/24 18:34 Source: patient and old records reviewed Mode of arrival: ambulatory Limitations: no limitations History of Present Illness ED Provider: RAISSA HPI narrative: 44 yo female with PMH of kidney stones, migraines, PID, anxiety, anemia who presents with L sided thumb/arm pain and chest wall pain atraumatic. Started in the shower she also felt her mouth was salivating. No recent travel/procedures, she is not on OCPs. She has no known CAD. No recent URI or infections. Moving makes the pain worse. MD complaint: chest pain Onset (ago): day(s) (this AM) Location: chest Radiation: extremity Severity: moderate Quality: aching Pain Consistency: intermittent Relieving factors: immobilization Exacerbating factors: movement (palpation) Associated symptoms: other (increased saliva) Treatments prior to arrival: none Related Data Home Medications ?Medication ?Instructions ?Recorded ?Confirmed citalopram 40 mg tablet 40 mg PO BEDTIME 12/04/19 10/20/23 lorazepam 1 mg tablet 1 mg PO TID PRN Anxiety 12/04/19 10/20/23 gabapentin 100 mg capsule 100 mg PO BEDTIME 05/13/22 10/20/23 risperidone 1 mg tablet 0.5 mg PO QAM 05/13/22 10/20/23 zolpidem 10 mg tablet 10 mg PO BEDTIME PRN insomnia 05/13/22 10/20/23 Previous Rx's ?Medication ?Instructions ?Recorded omeprazole 40 mg capsule,delayed 40 mg PO DAILY #30 caps 10/20/23 release acetaminophen 650 mg 650 mg PO Q8H PRN pain 30 days #90 04/01/24 tablet,extended release tabs topiramate 25 mg tablet 25 mg PO BEDTIME 30 days #30 tabs 04/01/24 semaglutide (weight loss) 0.5 0.5 mg (0.5 mL) subcut QWEEK 4 04/02/24 mg/0.5 mL subcutaneous pen weeks #2 mL injector (Wegovy) cyclobenzaprine 10 mg tablet 10 mg PO TID PRN muscle spasm #20 06/08/24 tabs lidocaine 5 % topical patch 1 patch topical DAILY #30 ea 06/08/24 prednisone 20 mg tablet 20 mg PO DAILY 5 days #5 tabs 06/08/24 Allergies Allergy/AdvReac Type Severity Reaction Status Date / Time ferrous sulfate Allergy Severe abdominal Verified 06/08/24 15:54 pain Sulfa (Sulfonamide Allergy Severe RASH, Verified 06/08/24 15:54 Antibiotics) TROUBLE SWALLOWING, DIFFICULTY BREATHING, anaphylaxis venlafaxine [From Effexor] Allergy Severe anaphylaxis/tongue Verified 06/08/24 15:54 swelling ibuprofen [From MOTRIN] Allergy Intermediate SHORTNESS Verified 06/08/24 15:54 OF BREATH morphine [MORPHINE] Allergy Intermediate NAUSEA/VOMITING, Verified 06/08/24 15:54 anaphylaxis aspirin [Aspirin] Allergy Mild hives/rash/SOB/difficulty Verified 06/08/24 15:54 swallowing/throat swelling hydromorphone [From DILAUDID] AdvReac Intermediate DYSPHORIA Verified 06/08/24 15:54 Review of Systems Review of Systems: Constitutional : No Weight loss, No Fever, No Chills ENT/Mouth : No sore throat, No Rhinorrhea, pos mouth pain Eyes: No Eye Pain, No Swelling Cardiovascular : pos Chest Pain, no SOB, no Dyspnea on Exertion, No Orthopnea, No Edema, No Palpitations Respiratory : No Cough, No Sputum Gastrointestinal : no Nausea, No Vomiting, No Diarrhea, No abdominal Pain, No Hematochezia, No Melena Genitourinary : No Dysuria, No Urinary Frequency Musculoskeletal : No joint pain, No Myalgias, No Joint Swelling Skin : No Skin Lesions, No rash Neuro : No Weakness, No Numbness, No Dizziness, No Headache Psych : No Anxiety/Panic, No Depression Heme/Lymph: No Bruising, No Lymphadenopathy Endocrine : No Polyuria, No Polydipsia All other systems reviewed and are negative [facility] Past Medical History Medical History Hypovitaminosis D B12 deficiency Depression with anxiety History of cocaine use Chronic fatigue Iron deficiency anemia Surgical History History of ankle surgery Hx of cholecystectomy H/O tubal ligation H/O section Hx of breast reduction, elective Family History Family History Father HTN (hypertension) Liver disease due to alcohol Mother HTN (hypertension) Diabetes Stroke Maternal Aunt Breast cancer Uterine cancer Maternal Uncle Breast cancer Paternal Grandmother Uterine cancer Family/Other Mental health disorder Social History Social History Housing: Apartment Alcohol intake: never Patient Tobacco Use Status: Former Tobacco user Cigarettes Per Day: 1 e-Cigarette/Vaping Use: Never Used service: No Current occupational status: employed 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 Oriented X3. No acute distress. Eyes: Pupils equal, round and reactive to light. ENT: Pharynx normal. gums and teeth appear normal Neck: Normal inspection. Neck supple. CVS: Normal heart rate and rhythm. Pulses normal. Chest: ttp along L anterior chest wall, reproduces pain Respiratory: No respiratory distress. Breath sounds normal. Abdomen: Soft and non-tender. Skin: Skin warm and dry. Normal skin color. Normal skin turgor. Extremities: No lower extremity edema. No calf ttp distal pulses in arms and legs symmetric ttp along L biceps tendon insertion proximal Neuro: Oriented X 3. No motor deficit. No sensory deficit. CN2-12 intact Course Course Course Narrative: This is a rapid medical exam performed by Carmela Sierra NP: Additional HPI, ROS, PE not included below will be deferred to primary provider. 06/08/24 15:52 Patient is a 44-year-old female presenting with complaint of symptoms which began with left thumb pain that radiated up left arm to left chest. Also complains of mouth watering and gum pain. Plan: EKG, labs, cxr Medical Decision Making Medical Decision Making MDM Narrative: 44 yo female with PMH of kidney stones, migraines, PID, anxiety, anemia here with c/o atypical chest wall pain she is PERC negative she has bounding distal pulses at this time atypical for ACS and PERC negative - will obtain trop, EKG, CXR - suspect more MSK will start on low dose steroids and muscle relaxers. Differential Diagnosis Differential Diagnoses: The differential diagnosis associated with the presentation includes chest wall pain, PERC negative, doubt dissection bounding symmetric distal pules - BP stable Admission/Observation Consideration of admission/observation: Escalation of care including admission/observation considered trop flat x 2, atyipical symptoms Lab Data [facility] Lab Attestation statement: I reviewed the patient's lab results. 06/08/24 16:03 06/08/24 16:03 Labs: Lab Results 06/08/24 06/08/24 Range/Units 16:03 18:09 WBC 6.7 (4.8-10.8) X10*3/uL RBC 4.35 (4.20-5.50) X10*6/uL Hgb 12.5 (12.0-16.0) g/dl Hct 37.2 (37.0-47.0) % MCV 85.5 (80.0-98.0) fL MCH 28.7 (27.0-33.0) pg MCHC 33.6 (31.0-35.0) g/dl RDW 13.4 (11.0-16.0) % Plt Count 254 (160-400) X10*3/uL MPV 9.1 L (9.4-12.3) fL Immature Gran % (Auto) 0.3 (0.0-0.4) % Neut % (Auto) 57.4 (45-73) % Lymph % (Auto) 33.1 (20-40) % [place] % (Auto) 7.9 (2-11) % Eos % (Auto) 0.9 (0-4) % Baso % (Auto) 0.4 (0-2) % Lymph # (Auto) 2.2 (1.2-4.9) X10*3/uL [place] # (Auto) 0.5 (0.1-1.2) X10*3/uL Eos # (Auto) 0.1 (0.0-0.4) X10*3/uL Baso # (Auto) 0.0 (0.0-0.2) X10*3/uL Abs Immat Gran (auto) 0.02 (0.00-0.03) X10*3/uL Absolute Neuts (auto) 3.8 (2.0-8.3) x10*3/uL Absolute Nucleated RBC 0.000 (0.0-0.012) X10*3/uL Nucleated RBC % (auto) 0.0 (0.0-0.2) /100WBC PT 11.5 (10.9-12.4) SEC INR 1.0 (0.9-1.1) Sodium 139 (135-145) mmol/L Potassium 4.1 (3.3-5.1) mmol/L Chloride 109 H (96-108) mmol/L Carbon Dioxide 25 (22-29) mmol/L Anion Gap 9 L (12-20) BUN 12 (9-16) mg/dL Creatinine 0.67 (0.5-1.4) mg/dL Estim Creat Clear Calc 115.4 Estimated GFR > 60 Random Glucose 87 (60-115) mg/dL Calcium 9.4 (8.4-10.2) mg/dL Total Bilirubin 0.5 (0.0-1.0) mg/dL AST 19 (5-31) U/L ALT 18 (0-31) U/L Alkaline Phosphatase 57 (39-117) U/L Troponin I High Sens < 2.7 < 2.7 (<3.5-17.0) ng/L Total Protein 7.5 (6.5-8.0) g/dL Albumin 4.5 (3.5-5.0) g/dL Lipase 22 (8-78) U/L Independent Interpretation I performed an independent interpretation of an: EKG and Plain X-Ray (normal ) Interpretation: Rate: 61 Rhythm: NSR [place]: normal Normal P waves. Normal GAL. Normal QRS complex. ST T wave : normal no PAULETTE qTC: 394 prior studies: no acute ischemia The study has been interpreted contemporaneously by me. . Radiology Impression Discussion of test interpretation with radiology: I have reviewed the radiologist's reading. External Record Review External record reviewed: Outpatient record Prescription Management I considered prescription management with: Pain Medication and Other Discharge Plan Discharge Clinical Impression: Acute chest wall pain, Biceps tendinitis Patient Disposition: Home, Self-Care Instructions: Tendinitis (ED), Chest Wall Pain (ED) Additional Instructions: EKG reassuring heart tests x 2 in blood are normal chest xray is normal please follow up with your doctor return for any worsening symptoms or concerns rest and stay hydrated Prescriptions: New cyclobenzaprine 10 mg tablet 10 mg PO TID PRN (Reason: muscle spasm) Qty: 20 0RF prednisone 20 mg tablet 20 mg PO DAILY 5 Days Qty: 5 0RF lidocaine 5 % adhesive patch,medicated 1 patch topical DAILY Qty: 30 0RF Rx Instructions: leave on most painful area for up to 12 hrs No Action acetaminophen 650 mg tablet extended release 650 mg PO Q8H PRN (Reason: pain) 30 Days Qty: 90 0RF topiramate 25 mg tablet 25 mg PO BEDTIME 30 Days Qty: 30 0RF Wegovy 0.5 mg/0.5 mL pen injector 0.5 mg subcut QWEEK 28 Days Qty: 2 0RF Rx Instructions: administer weeks 5 through 8 of therapy omeprazole 40 mg capsule,delayed release(DR/EC) 40 mg PO DAILY Qty: 30 0RF citalopram 40 mg tablet 40 mg PO BEDTIME lorazepam 1 mg tablet 1 mg PO TID PRN (Reason: Anxiety) zolpidem 10 mg tablet 10 mg PO BEDTIME PRN (Reason: insomnia) gabapentin 100 mg capsule 100 mg PO BEDTIME risperidone 1 mg tablet 0.5 mg PO QAM Rx Instructions: & 1 mg QHS Print Language: [place]an
[2024-06-08 16:07] LABS: MANUAL DIFF FLAG NO
[2024-06-08 16:12] LABS: Basophils Percent Auto 0.4 % (0-2); Eosinophils Absolute Auto 0.1 X10*3/uL (0.0-0.4); Eosinophils Percent Auto 0.9 % (0-4); Hematocrit 37.2 % (37.0-47.0); Hemoglobin 12.5 g/dl (12.0-16.0); Imm Gran Abs Auto 0.02 X10*3/uL (0.00-0.03); Imm Gran Pct Auto 0.3 % (0.0-0.4); Lymphocytes Absolute Auto 2.2 X10*3/uL (1.2-4.9); Lymphocytes Percent Auto 33.1 % (20-40); Mean Corpuscular HGB Conc 33.6 g/dl (31.0-35.0); Mean Corpuscular Hemoglobin 28.7 pg (27.0-33.0); Mean Corpuscular Volume 85.5 fL (80.0-98.0); Mean Platelet Volume 9.1 fL (9.4-12.3); Monocytes Absolute Auto 0.5 X10*3/uL (0.1-1.2); Monocytes Percent Auto 7.9 % (2-11); Neutrophils Absolute Auto 3.8 x10*3/uL (2.0-8.3); Neutrophils Percent Auto 57.4 % (45-73); Platelet Count 254 X10*3/uL (160-400); Red Blood Count 4.35 X10*6/uL (4.20-5.50); Red Cell Distribution Width 13.4 % (11.0-16.0); White Blood Count 6.7 X10*3/uL (4.8-10.8)
[2024-06-08 16:23] LABS: Alanine Aminotransferase 18 U/L (0-31); Albumin Level 4.5 g/dL (3.5-5.0); Alkaline Phosphatase 57 U/L (39-117); Anion Gap 9 (12-20); Aspartate Amino Transferase 19 U/L (5-31); Bilirubin Total 0.5 mg/dL (0.0-1.0); Blood Urea Nitrogen 12 mg/dL (9-16); Calcium 9.4 mg/dL (8.4-10.2); Carbon Dioxide 25 mmol/L (22-29); Chloride 109 mmol/L (96-108); Creatinine Clr Calc Pharmacy 115.4; Estimated Glomerular Filt Rate > 60; Glucose Random 87 mg/dL (60-115); Lipase 22 U/L (8-78); Potassium 4.1 mmol/L (3.3-5.1); Sodium 139 mmol/L (135-145); Total Protein 7.5 g/dL (6.5-8.0)
[2024-06-08 16:28] LABS: Troponin-I High Sensitivity < 2.7 ng/L (<3.5-17.0)
[2024-06-08 16:29] LABS: Prothrombin Time 11.5 SEC (10.9-12.4)
[2024-06-08 18:37] LABS: Troponin-I High Sensitivity < 2.7 ng/L (<3.5-17.0)
[2024-06-08 19:16] VITALS: BP 122/64; PULSE 60; RESP 15; TEMP 36.8; O2SAT 100
== END 2024-06-08 19:16 | disposition home or self-care (01) ==
PROVIDERS: Registered Nurse Emergency; Emergency Provider Emergency Medicine; PCP Internal Medicine
DX: R07.89 Other chest pain (principal); M75.22 Bicipital tendinitis, left shoulder; E66.9 Obesity, unspecified; Z68.41 Body mass index [BMI] 40.0-44.9, adult; D50.9 Iron deficiency anemia, unspecified; Z87.891 Personal history of nicotine dependence; Z79.899 Other long term (current) drug therapy
CPT/HCPCS: 36415; 71046; 80053; 83690; 84484; 85025; 85610; 93005; 99283

== ENCOUNTER → 2024-06-08 15:39 | Outpatient (BNV) | payer OTHER, SELFPAY | PROVIDERS: Emergency Provider Emergency Medicine; PCP Internal Medicine; Visit Provider Internal Medicine | DX: R07.9 Chest pain, unspecified (principal) | CPT/HCPCS: 93010 ==

== ENCOUNTER → 2024-06-08 15:53 | Outpatient (BNV) | payer OTHER, SELFPAY | PROVIDERS: PCP Internal Medicine; Visit Provider Radiology Diagnostic Radiology | DX: R07.9 Chest pain, unspecified (principal) | CPT/HCPCS: 71046 ==

== ENCOUNTER 2024-08-29 13:23 | Outpatient (REF) | payer OTHER, SELFPAY ==
[2024-08-29 15:33] LABS: HCG Quantitative < 2 mIU/mL; TSH reflex Free T4 1.46 uIU/mL (0.32-4.0)
[2024-08-29 17:30] LABS: CT PCR NOT DETECTED (Not Detect.); NG PCR NOT DETECTED (Not Detect.)
== END 2024-08-29 13:24 | disposition home or self-care (01) ==
LOC: HO.LAB 13:23
PROVIDERS: PCP Internal Medicine; Visit Provider Obstetrics & Gynecology
DX: Z01.419 Encounter for gynecological examination (general) (routine) without abnormal findings (principal); R10.2 Pelvic and perineal pain; G89.29 Other chronic pain; N93.9 Abnormal uterine and vaginal bleeding, unspecified
CPT/HCPCS: 36415; 81002; 81025; 84443; 84702; 87491; 87591; 99212; G0101

== ENCOUNTER 2024-08-29 13:23 | Outpatient (AMB) | payer OTHER, SELFPAY ==
--- NOTE | 2024-08-29 13:33 | A.OFFVIS_ITS ---
Vital Signs 08/29/24 13:34 Height 5 ft 2 in Weight 220 lb BMI 40.2 BP 124/78 Intake Visit Reasons: ALMOND HULLER annual exam Intake Note: c/om of heavy menses and pelvic pain Electronics Inspector Required: No Information Interpreted: non-clinical & clinical Load Out Worker: Load Out Worker Present (Clari Bravo ALLISON) Accompanied by: Self / Same As Patient Allergies ferrous sulfate Allergy (Severe, Verified 08/29/24 13:41) abdominal pain Sulfa (Sulfonamide Antibiotics) Allergy (Severe, Verified 08/29/24 13:41) RASH, TROUBLE SWALLOWING, DIFFICULTY BREATHING, anaphylaxis venlafaxine (From Effexor) Allergy (Severe, Verified 08/29/24 13:41) anaphylaxis/tongue swelling ibuprofen (From MOTRIN) Allergy (Intermediate, Verified 08/29/24 13:41) SHORTNESS OF BREATH morphine (MORPHINE) Allergy (Intermediate, Verified 08/29/24 13:41) NAUSEA/VOMITING, anaphylaxis aspirin (Aspirin) Allergy (Mild, Verified 08/29/24 13:41) hives/rash/SOB/difficulty swallowing/throat swelling hydromorphone (From DILAUDID) Adverse Reaction (Intermediate, Verified 08/29/24 13:41) DYSPHORIA Is last menstrual period known: Yes Last menstrual period: 08/09/24 HPI Comments Details: Presenting for annual exam. Complaining of regular heavy menstrual cycles and Street with pelvic pain no fever or chills no nausea or vomiting, no GI or symptoms. Last Pap/HPV was negative in 08/27 Last Mammogram was BI-RADS 2 in 11/29 No previous screening colonoscopy PFSH Medical History Hypovitaminosis D B12 deficiency Depression with anxiety History of cocaine use Chronic fatigue Iron deficiency anemia Surgical History History of ankle surgery Hx of cholecystectomy H/O tubal ligation H/O section Hx of breast reduction, elective Family History Father HTN (hypertension) Liver disease due to alcohol Mother HTN (hypertension) Diabetes Stroke Maternal Aunt Breast cancer Uterine cancer Maternal Uncle Breast cancer Paternal Grandmother Uterine cancer Family/Other Mental health disorder Social History Housing: Apartment Alcohol intake: never Patient Tobacco Use Status: Former Tobacco user Cigarettes Per Day: 1 e-Cigarette/Vaping Use: Never Used service: No Current occupational status: employed Current occupation: [employer] DES[employer] Current occupational exposures/hazards: No Cognitive needs: No Hearing needs: No Vision needs: No Female Reproductive History Menstrual Age of Menarche: 9 Date of last menstrual period: 08/09/24 control method: permanent sterilization Date of last pap smear: 08/20/21 Date of Mammogram: 11/13/23 Review of Systems Const All systems reviewed & are unremarkable except as noted in HPI and below Card Reports as per HPI Resp Reports as per HPI GI Reports as per HPI and Reports no additional complaints Reports as per HPI Physical Exam Vital Signs: Last Vital Signs BP 124/78 08/29/24 13:34 BMI result Body Mass Index 40.2 Const General: cooperative, healthy appearing and comfortable Chest Chest palpation & inspection: normal inspection of the chest and normal palpation of entire chest wall Breast/axilla inspection: normal inspection of the breasts and normal inspection of the axillae Breast/axilla palpation: normal palpation of the breasts, normal palpation of the axillae and no axillary lymphadenopathy Resp Effort & Inspection: normal respiratory effort Auscultation: clear to auscultation bilaterally Percussion: percussion normal Cardio Palpation: normal PMI Rate: regular rate Rhythm: regular rhythm Heart sounds: no murmurs and no rubs Peripheral pulses: Peripheral pulses 2+ throughout GI Inspection: Yes normal to inspection Palpation (GI): Soft to palpation, nontender, no guarding, not rigid and No hepatosplenomegaly present Percussion: Yes normal to percussion Auscultation: normal bowel sounds Rectal Exam - Female: deferred General: Yes bladder normal to palpation External Female Exam: No lesion Speculum Exam - Vagina: normal appearance of the vagina, normal palpation, normal vaginal discharge and not erythematous Speculum Exam - Cervix: normal appearance of the cervix and normal palpation Bimanual exam- vagina & uterus: normal bimanual exam, normal palpation, uterine size normal, bladder normal to palpation, consistency normal and normal palpation Bimanual Exam- Adnexa, other: normal adnexae, no masses and no tenderness Results AMB Urinalysis Dipstick UR Leukocytes Negative Last Edit by Clari Bravo CLARE on 08/29/24 13:50 UR Nitrite Negative Last Edit by Clari Bravo, ART THERAPY SPECIALIST on 08/29/24 13:50 UR Urobilinogen Normal Last Edit by Clari Bravo, ART THERAPY SPECIALIST on 08/29/24 13:50 UR Protein Trace Last Edit by Clari Bravo, ART THERAPY SPECIALIST on 08/29/24 13:50 UR Ph 5.5 Last Edit by Clari Bravo, ART THERAPY SPECIALIST on 08/29/24 13:50 UR Blood Negative Last Edit by Clari Bravo, ART THERAPY SPECIALIST on 08/29/24 13:50 UR Specific Danielson 1.025 Last Edit by Clari Bravo, ART THERAPY SPECIALIST on 08/29/24 13:50 UR Ketone Negative Last Edit by Clari Bravo, ART THERAPY SPECIALIST on 08/29/24 13:50 UR Bilirubin Negative Last Edit by Clari Bravo, ART THERAPY SPECIALIST on 08/29/24 13:50 UR Glucose Negative Last Edit by Clari Bravo, ART THERAPY SPECIALIST on 08/29/24 13:50 Assessment & Plan Assessment & Plan (1) Well woman exam: Code(s): Z01.419 - Encounter for gynecological examination (general) (routine) without abnormal findings Category: Medical Plan: Cotesting done. Instructions given the patient to schedule next screening Mammogram in 11/30. Refer to GI for screening colonoscopy placed Counseled the patient about the recommended dietary allowance of 1000 mg of Calcium & 600 IU of vitamin D. The patient was instructed to perform monthly self-breast exams and to schedule an annual exam in a year; All questions answered and the patient verbalized understanding. Instructed the patient to schedule annual exam in a year (2) Chronic pelvic pain in female: Code(s): R10.2 - Pelvic and perineal pain; G89.29 - Other chronic pain Category: Medical Plan: Urine dip and test done in the office were both negative. GC and chlamydia taken and pelvic ultrasound ordered. Discussed with the patient the differential diagnosis of pelvic pain including but not limited to adnexal, uterine masses, pelvic infections (PID), GI the (Irritable bowel syndrome, diverticulitis, others), musculoskeletal, myofascial pain abdominal wall , adhesions, endometriosis, psychological and others causes. Will check results and treat accordingly. All questions answered, the patient verbalized understanding. Instructed the patient to schedule an ultrasound and a follow-up appointment in 2 weeks. All questions answered, the patient verbalized understanding and agreed with the plan. (3) Abnormal uterine bleeding (AUB): Code(s): N93.9 - Abnormal uterine and vaginal bleeding, unspecified Category: Medical Plan: GC and chlamydia taken CBC, TSH, HCG, and pelvic ultrasound ordered. Discussed with the patient the different causes of abnormal bleeding including thyroid disorders, uterine and ovarian pathology, endometrial hyperplasia, carcinoma and other potential causes. Discussed with the patient the work up including CBC (to r/o anemia), TSH, pelvic Ultrasound, endometrial biopsy to r/o endometrial pathology. All questions answered and the patient verbalized understanding. Instructed the patient to schedule an appointment for an endometrial biopsy in 2 weeks. Orders: Orders MM tomosynthesis screening BI Today Z12.31 - Encounter for screening mammogram for malignant neoplasm of breast HCG Quantitative Today N93.9 - Abnormal uterine and vaginal bleeding, unspecified US pelvic and transvaginal Today N93.9 - Abnormal uterine and vaginal bleeding, unspecified CT NG by PCR Today N93.9 - Abnormal uterine and vaginal bleeding, unspecified AMB Urinalysis Dipstick Today R10.2 - Pelvic and perineal pain TSH reflex Free T4 Today N93.9 - Abnormal uterine and vaginal bleeding, unspecified Referrals Gastroenterology Referral Z12.11 - Encounter for screening for malignant neoplasm of colon Coding Level of Care Code Est Pt Level 3 (58397) Est Pt Prev Care 40-64y(41353) Diagnoses Well woman exam Z01.419 Chronic pelvic pain in female R10.2; G89.29 Abnormal uterine bleeding (AUB) N93.9
[2024-08-29 13:34] VITALS: BP 124/78; BMI 40.2
--- OUTSIDE RECORDS SUMMARY | 2024-08-29 15:23 | XMS_ITS | Clinical Summary ---
Author Organization [facility] it Address [address] [place] [address] Care Team Providers Care Assembler Billiard Table Name Role Phone Unavailable Primary Care Provider Unavailabl e Social History Tobacco Use Types Packs/Day Years Used Date Smoking Tobacco: Never Assessed Comments Unknown Sex and Gender Information Value Date Recorded Sex Assigned at Not on file Legal Sex Female 12:15 AM EST Gender Identity Not on file Sexual Orientation Not on file Plan of Treatment Health Maintenance Due Date Last Done Comments Breast Cancer Screening 1978 DTaP,Tdap,and Td Vaccines (1 - Tdap) 1997 Hepatitis B Vaccines (1 of 3 - 19+ 3-dose series) 1997 Cervical Cancer Screening: P ap Smear 1999 Colorectal Cancer Screening: Colonoscopy 04/06/2023 Depression Screening 04/06/2023 HIV Screening 04/06/2023 Hepatitis C Screening 04/06/2023 Social Influencers of Health Screening 04/06/2023 COVID-19 Vaccine (2023-2 5 season) 2023 Influenza Vaccine (Season Ended) 2024 HIB Vaccines Aged Out No longer eligi ble based on patient's age to complete this topic HPV Vaccines Aged Out No longer eligi ble based on patient's age to complete this topic Hepatitis A Vaccines Aged Out No long er eligible based on patient's age to complete this topic IPV Vaccines Aged Out No longer eligi ble based on patient's age to complete this topic MMR Vaccines Aged Out No longer eligi ble based on patient's age to complete this topic Meningococcal ACWY Vaccine Aged Out N o longer eligible based on patient's age to complete this topic Meningococcal B Vaccine Aged Out No l onger eligible based on patient's age to complete this topic Pneumococcal Vaccine: Pediat rics (0 to 5 Years) and At-Risk Patients (6 to 64 Years) Aged Out No longer eligible b ased on patient's age to complete this topic RSV Immunization Patients Un brittani 20 months Aged Out No longer eligible b ased on patient's age to complete this topic Varicella Vaccines Aged Out No longer eligible based on patient's age to complete this topic
== END 2024-08-29 14:11 | disposition home or self-care (01) ==
LOC: HO.HWS 13:23
PROVIDERS: PCP Internal Medicine; Visit Provider Obstetrics & Gynecology
DX: Z01.419 Encounter for gynecological examination (general) (routine) without abnormal findings (principal); R10.2 Pelvic and perineal pain; G89.29 Other chronic pain; N93.9 Abnormal uterine and vaginal bleeding, unspecified; Z32.02 Encounter for pregnancy test, result negative
CPT/HCPCS: 99213; G0101

== ENCOUNTER 2024-10-10 15:32 | Outpatient (AMB) | payer OTHER, SELFPAY ==
--- NOTE | 2024-10-10 15:42 | MHC.OFFVIS ---
Vital Signs 10/10/24 15:46 Height 5 ft 2 in Weight 220 lb BMI 40.2 Intake Visit Reasons: EMB Blood Donor Recruiter Required: No Information Interpreted: non-clinical & clinical Director Of Distance Learning: Director Of Distance Learning Present (Clari Bravo ALLISON) Accompanied by: Self / Same As Patient Allergies ferrous sulfate Allergy (Severe, Verified 10/10/24 15:47) abdominal pain Sulfa (Sulfonamide Antibiotics) Allergy (Severe, Verified 10/10/24 15:47) RASH, TROUBLE SWALLOWING, DIFFICULTY BREATHING, anaphylaxis venlafaxine (From Effexor) Allergy (Severe, Verified 10/10/24 15:47) anaphylaxis/tongue swelling ibuprofen (From MOTRIN) Allergy (Intermediate, Verified 10/10/24 15:47) SHORTNESS OF BREATH morphine (MORPHINE) Allergy (Intermediate, Verified 10/10/24 15:47) NAUSEA/VOMITING, anaphylaxis aspirin (Aspirin) Allergy (Mild, Verified 10/10/24 15:47) hives/rash/SOB/difficulty swallowing/throat swelling hydromorphone (From DILAUDID) Adverse Reaction (Intermediate, Verified 10/10/24 15:47) DYSPHORIA HPI Comments Details: Presenting for EMB [facility] Medical History Hypovitaminosis D B12 deficiency Depression with anxiety History of cocaine use Chronic fatigue Iron deficiency anemia Surgical History History of ankle surgery Hx of cholecystectomy H/O tubal ligation H/O section Hx of breast reduction, elective Family History Father HTN (hypertension) Liver disease due to alcohol Mother HTN (hypertension) Diabetes Stroke Maternal Aunt Breast cancer Uterine cancer Maternal Uncle Breast cancer Paternal Grandmother Uterine cancer Family/Other Mental health disorder Social History Housing: Apartment Alcohol intake: never Patient Tobacco Use Status: Former Tobacco user Cigarettes Per Day: 1 e-Cigarette/Vaping Use: Never Used service: No Current occupational status: employed 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 [employer] Current occupational exposures/hazards: No Cognitive needs: No Hearing needs: No Vision needs: No Female Reproductive History Menstrual Age of Menarche: 9 Review of Systems Const All systems reviewed & are unremarkable except as noted in HPI and below Reports as per HPI and Reports no additional complaints GI Reports no additional complaints Reports no additional complaints Physical Exam Vital Signs: BMI result Body Mass Index 40.2 Office Procedures Endometrial Biopsy Details: The patient was counseled regarding the indication and benefits of endometrial sampling to rule out endometrial pathology including not limited to endometrial hyperplasia or endometrial cancer and others; The alternatives (Either do nothing vs. hysteroscopy D&C) & the risks were discussed with the patient including but not limited: pain, uterine perforation, bleeding, infection, possible injury to bladder, bowel, ureter, possible need for blood transfusion with all its possible risks. The patient verbalized understanding all questions answered and signed consent. Urine test done in the office was negative The patient was placed into the dorsal lithotomy position; a speculum was inserted in the vagina. Using aseptic technique for the procedure, the cervix was cleansed with Betadine. The anterior lip of the cervix was grasped with a single tooth tenaculum. The uterus was sounded to 7 cm with a 4 mm Pipelle was used. Tissues samples were obtained and placed in formalin, in a patient labeled container and sent to the pathology department. At the end of the procedure, there was minimal bleeding noted The patient tolerated the procedure well and was discharged in good condition with the following instructions: Nothing in the vagina until the bleeding stops. No sex until the bleeding stops, to call if any of the following occurs: fever (>100.4), flu-like symptoms, abdominal pain, heavy bleeding, four smelling vaginal discharge. The patient was instructed to schedule a Follow up appointment in 2 weeks to discuss pathology results of the biopsy and treatment options. This note was generated with a voice recognition program. Some errors may have been overlooked during the review of this note. Sometimes these errors may affect the content or meaning of a given sentence. [id number] Biopsy Results AMB Test Urine AMB Test Urine Negative Last Edit by Clari Bravo CMA on 10/10/24 15:48 Results Reviewed Results Reviewed: Laboratory Last Values Tst Clinic Negative 10/10/24 15:47 Assessment & Plan Assessment & Plan (1) Abnormal uterine bleeding (AUB): Code(s): N93.9 - Abnormal uterine and vaginal bleeding, unspecified Category: Medical Plan: EMB done, see procedure note Orders: Orders AMB Endometrial Biopsy Today N93.9 - Abnormal uterine and vaginal bleeding, unspecified AMB HCG Urine Test Today Z32.02 - Encounter for test, result negative Coding Level of Care Code Procedure Only Diagnoses Abnormal uterine bleeding (AUB) N93.9 CPT Codes Endometrial Biopsy - CPT: 66268-Jeipccpilhi Biopsy ([id number])
[2024-10-10 15:46] VITALS: BMI 40.2
--- OUTSIDE RECORDS SUMMARY | 2024-10-10 15:56 | XMS_ITS | Clinical Summary ---
Author Organization [employer] [facility] it Address [address] [place] [address] Care Team Providers Care Acidity Tester Name Role Phone Unavailable Primary Care Provider [...] Smear 1999 Colorectal Cancer Screening: Colonoscopy 04/06/2023 HIV Screening 04/06/2023 Hepatitis C Screening 04/06/2023 Social Influencers of Health Screening 04/06/2023 COVID-19 Vaccine (2023-2 5 season) 2023 Depression Screening 03/08/2024 Influenza Vaccine (#1) 2024 HIB Vaccines Aged Out No longer [...] 5 Years) and At-Risk Patients (6 to 49 Years) Aged Out No longer eligible b ased on patient's age to complete this topic RSV Immunization Patients Un brittani 20 months Aged Out No longer eligible b ased on patient's age to complete this topic Varicella Vaccines Aged Out No longer eligible based on patient's age to complete this topic
--- OUTSIDE RECORDS SUMMARY | 2024-10-10 15:56 | XMS_ITS | Clinical Summary ---
Author Organization [facility] Address [address] [place] [phone] Phone Care Team Providers Care Impact Hammer Operator Name Role Phone Unavailable Primary Care Provider Unavailabl e Social History Tobacco Use Types Packs/Day Years Used Date Smoking Tobacco: Never Assessed Comments Unknown Sex and Gender Information Value Date Recorded Sex Assigned at Not on file Legal Sex Female 3:52 PM EDT Gender Identity Not on file Sexual Orientation Not on file Plan of Treatment Health Maintenance Due Date Last Done Comments MMR Vaccines (1 of 1 - Stand francisco series) 1979 Varicella Vaccines (1 of 2 - 13+ 2-dose series) 1991 DTaP,Tdap,and Td Vaccines (1 - Tdap) 1996 Hepatitis B Vaccines (1 of 3 - 19+ 3-dose series) 1997 COVID-19 Vaccine ( - 2023-2 5 season) 2023 Influenza Vaccines (#1) 2024 HIB Vaccines Aged Out No [...] on patient's age to complete this topic Men B Vaccine Aged Out No longer elig ible based on patient's age to complete this topic Meningococcal Vaccine Aged Out No flory jeremy eligible based on patient's age to complete this topic Pneumococcal Vaccine Aged Out No long er eligible based on patient's age to complete this topic
== END 2024-10-10 16:00 | disposition home or self-care (01) ==
LOC: HO.HWS 15:32
PROVIDERS: PCP Obstetrics & Gynecology; Visit Provider Obstetrics & Gynecology
DX: N93.9 Abnormal uterine and vaginal bleeding, unspecified (principal); Z32.02 Encounter for pregnancy test, result negative
CPT/HCPCS: 58100

== ENCOUNTER 2024-10-10 15:32 | Outpatient (REF) | payer OTHER, SELFPAY | END 2024-10-10 15:33 | disposition home or self-care (01) | LOC: HO.LNP 15:32 | PROVIDERS: PCP Obstetrics & Gynecology; Visit Provider Obstetrics & Gynecology | DX: N93.9 Abnormal uterine and vaginal bleeding, unspecified (principal); Z32.02 Encounter for pregnancy test, result negative | CPT/HCPCS: 58100; 81025; 88305 ==

== ENCOUNTER 2024-10-16 13:00 | Outpatient (REF) | payer OTHER, SELFPAY ==
--- NOTE | ~2024-10-16 | US_ITS ---
EXAMINATION: US PELVIS TRANSABDOMINAL AND TRANSVAGINAL HISTORY: N93.9 - Abnormal uterine and vaginal bleeding, unspecified COMPARISON: Comparison is made with the prior examination dated 06/29/2023. TECHNIQUE: Transabdominal and endovaginal real-time 2D espinal-scale ultrasound was performed. FINDINGS: Uterus: The uterus is normal in size, measuring 10.5 x 5.0 x 5.9 cm. Myometrium has heterogeneous echotexture. No fibroids are identified. Endometrium: The endometrial stripe measures 10 mm in thickness. There are nabothian cysts in the cervix. Right ovary: The right ovary measures 2.7 x 2.6 x 2.6 cm. The right ovary is normal in size and echotexture. Left ovary: The left ovary measures 2.4 x 1.6 x 1.8 cm. The left ovary is normal in size and echotexture. Pelvic fluid: none. US/US pelvic and transvaginal IMPRESSION: Unremarkable pelvic ultrasound. Electronically signed by: Chapo Van MD 10/16/2024 01:58 PM EDT
--- OUTSIDE RECORDS SUMMARY | 2024-10-16 13:07 | XMS_ITS | Clinical Summary ---
Author Organization [facility] Address [address] [place] [id number] Phone Care Team Providers Care Change Person Name Role Phone Unavailable Primary Care Provider [...]
--- OUTSIDE RECORDS SUMMARY | 2024-10-16 13:07 | XMS_ITS | Clinical Summary ---
Author Organization [facility] [employer] [facility] it Address [address] [place] [address] Care Team Providers Care Hand Router Operator Name Role Phone Unavailable Primary Care [...]
== END 2024-10-16 13:01 | disposition home or self-care (01) ==
LOC: HO.US 13:00
PROVIDERS: PCP Internal Medicine; Visit Provider Obstetrics & Gynecology
DX: N93.9 Abnormal uterine and vaginal bleeding, unspecified (principal)
CPT/HCPCS: 76830; 76856

== ENCOUNTER → 2024-10-16 13:01 | Outpatient (BNV) | payer OTHER, SELFPAY | PROVIDERS: PCP Internal Medicine; Visit Provider Radiology Diagnostic Radiology | DX: N93.9 Abnormal uterine and vaginal bleeding, unspecified (principal) | CPT/HCPCS: 76830; 76856 ==

== ENCOUNTER 2024-10-24 10:41 | Outpatient (AMB) | payer OTHER, SELFPAY ==
--- NOTE | 2024-10-24 10:42 | MHC.OFFVIS ---
Intake Visit Reasons: emb results/us results Allergies ferrous sulfate Allergy (Severe, Verified 10/10/24 15:47) abdominal pain Sulfa (Sulfonamide Antibiotics) Allergy (Severe, Verified 10/10/24 15:47) RASH, TROUBLE SWALLOWING, DIFFICULTY BREATHING, anaphylaxis venlafaxine (From Effexor) Allergy (Severe, Verified 10/10/24 15:47) anaphylaxis/tongue swelling ibuprofen (From MOTRIN) Allergy (Intermediate, Verified 10/10/24 15:47) SHORTNESS OF BREATH morphine (MORPHINE) Allergy (Intermediate, Verified 10/10/24 15:47) NAUSEA/VOMITING, anaphylaxis aspirin (Aspirin) Allergy (Mild, Verified 10/10/24 15:47) hives/rash/SOB/difficulty swallowing/throat swelling hydromorphone (From DILAUDID) Adverse Reaction (Intermediate, Verified 10/10/24 15:47) DYSPHORIA HPI Comments Details: The patient scheduled telehealth visit for follow-up to discuss the results of her abnormal uterine bleeding workup and options of treatment. The following workup was done.: H&H= 12.5/37.2 TSH, hCG, GC and chlamydia were negative. Endometrial biopsy pathology showed the following: Endometrium, biopsy: - Proliferative endometrium; no atypia or hyperplasia identified. - Few fragments of endocervical tissue with squamous metaplasia; no atypia identified Co testing was done in 08/27 was negative. Mammogram was BI-RADS 2 in 11/29. Pelvic ultrasound was unremarkable [facility] Medical History Hypovitaminosis D B12 deficiency Depression with anxiety History of cocaine use Chronic fatigue Iron deficiency anemia Surgical History History of ankle surgery Hx of cholecystectomy H/O tubal ligation H/O section Hx of breast reduction, elective Family History Father HTN (hypertension) Liver disease due to alcohol Mother HTN (hypertension) Diabetes Stroke Maternal Aunt Breast cancer Uterine cancer Maternal Uncle Breast cancer Paternal Grandmother Uterine cancer Family/Other Mental health disorder Social History Housing: Apartment Alcohol intake: never Patient Tobacco Use Status: Former Tobacco user Cigarettes Per Day: 1 e-Cigarette/Vaping Use: Never Used service: No Current occupational status: employed 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 Current occupational exposures/hazards: No Cognitive needs: No Hearing needs: No Vision needs: No Female Reproductive History Menstrual Age of Menarche: 9 Review of Systems Const All systems reviewed & are unremarkable except as noted in HPI and below Reports as per HPI and Reports no additional complaints GI Reports no additional complaints Reports no additional complaints Telehealth Telehealth Telehealth Platform: [employer] Location of provider rendering services: practice address Location of patient: address on file Patient Identification confirmed using: Name, : Yes Telehealth method: video Patient verbally consented to treatment: Yes Patient verbally consented to billing insurance company: Yes Patient informed of any privacy concerns related to visit: Yes Minutes spent on Phone/Video with Pt.: 8 Assessment & Plan Assessment & Plan (1) Abnormal uterine bleeding (AUB): Code(s): N93.9 - Abnormal uterine and vaginal bleeding, unspecified Category: Medical Plan: Discussed with the patient the results of the work up done and options of treatment including but not limited to BCP's, cyclic Progesterone, Mirena IUD, endometrial ablation and hysterectomy. All pros, cons, risks and benefits of each option were discussed with the patient and the patient decided to go ahead with cyclic Provera, so a more detailed discussion re: Progesterone treatment including mechanism of action, benefits (regular menses, endometrial protection form unopposed estrogen and reduction in the risk of endometrial hyperplasia and/or cancer ...), risks (Thrombosis, mood changes, weight gain, breast soreness, ? increased breast ca, others). Instructions were given to use a back- up method for contraception since this is not a method control, take the medication 1 tablet daily starting day 15-24 and to schedule a 3 months follow-up appointment; patient verbalized understanding and agreed with the plan. I spent a total of 20 minutes reviewing the chart, talking to the patient via video and documenting in the medical record. Medications: New medroxyprogesterone (Provera) start Provera 1 tablet daily from day 15-24 cyclically every months, day 1 being 1st day of menses 10 mg PO DAILY 30 tabs 0RF 90 days Coding Level of Care Code Tele Est Pt Level 3 (74631) Diagnoses Abnormal uterine bleeding (AUB) N93.9
--- OUTSIDE RECORDS SUMMARY | 2024-10-24 12:07 | XMS_ITS | Clinical Summary ---
Author Organization [facility] [employer] [facility] it Address [address] [place] [address] Care Team Providers Care Nurse Practitioner Name Role Phone Unavailable Primary Care Provider [...]
== END 2024-10-24 12:14 | disposition home or self-care (01) ==
LOC: HO.HWS 10:41
PROVIDERS: PCP Internal Medicine; Visit Provider Obstetrics & Gynecology
DX: N93.9 Abnormal uterine and vaginal bleeding, unspecified (principal)
CPT/HCPCS: 99213

== ENCOUNTER 2024-10-25 12:44 | Outpatient (AMB) | payer OTHER, SELFPAY ==
[2024-10-25 12:47] VITALS: BP 116/78; PULSE 65; RESP 16; TEMP 36.3; O2SAT 99; BMI 40.6
--- NOTE | 2024-10-25 12:47 | MHC.PC.OV ---
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: No Accompanied by: Self / Same As Patient Allergies ferrous sulfate Allergy (Severe, Verified 10/25/24 13:20) abdominal pain Sulfa (Sulfonamide Antibiotics) Allergy (Severe, Verified 10/25/24 13:20) RASH, TROUBLE SWALLOWING, DIFFICULTY BREATHING, anaphylaxis venlafaxine (From Effexor) Allergy (Severe, Verified 10/25/24 13:20) anaphylaxis/tongue swelling ibuprofen (From MOTRIN) Allergy (Intermediate, Verified 10/25/24 13:20) SHORTNESS OF BREATH morphine (MORPHINE) Allergy (Intermediate, Verified 10/25/24 13:20) NAUSEA/VOMITING, anaphylaxis aspirin (Aspirin) Allergy (Mild, Verified 10/25/24 13:20) hives/rash/SOB/difficulty swallowing/throat swelling hydromorphone (From DILAUDID) Adverse Reaction (Intermediate, Verified 10/25/24 13:20) DYSPHORIA semaglutide (From Wegovy) Adverse Reaction (Intermediate, Verified 10/25/24 13:32) headache,abdominal pain Medication List - Last Reconciled 10/25/24 by Emily Hill MD acetaminophen ER 650 mg PO Q8H PRN 30 days citalopram 40 mg PO BEDTIME cyclobenzaprine 10 mg PO TID PRN gabapentin 100 mg PO BEDTIME lidocaine 5% 1 patch topical DAILY lorazepam 1 mg PO TID PRN medroxyprogesterone (Provera) 10 mg PO DAILY 90 days omeprazole 40 mg PO DAILY risperidone 0.5 mg PO QAM topiramate 25 mg PO BEDTIME 30 days zolpidem 10 mg PO BEDTIME PRN Tobacco use date assessed: 10/25/24 Dental Screening Dental Screen Date: 10/25/24 Did you have a dental visit in the last 12 months?: Yes Did you have a dental problem in the last 6 months where you did not have access to dental care?: No Was dental information given to patient?: Patient has dentist HPI HPI Comments History of Present Illness Details The patient is a 44-year-old female presenting with diffuse joint pain for her physical exam. She reports diffuse joint pain and seeks rheumatology consultation for further evaluation. Additionally, she mentions symptoms of malabsorption and desires an ophthalmology consultation. Also complains about blurry vision and chest pain. The patient has a history of morbid obesity and previously used Wegovy, which caused headache and abdominal pain. She is not interested in further weight loss medication. Preventative care includes a Tdap vaccination due in 2025 and a scheduled colonoscopy in December. - Tdap vaccination scheduled for 2025 - Colonoscopy consultation appointment in December - mammogram and Pap smear up-to-date. [facility] Medical History (Updated 10/25/24 @ 21:01 by Emily Hill MD) Hypovitaminosis D B12 deficiency Depression with anxiety History of cocaine use Chronic fatigue Iron deficiency anemia Surgical History History of ankle surgery Hx of cholecystectomy H/O tubal ligation H/O section Hx of breast reduction, elective Family History Father HTN (hypertension) Liver disease due to alcohol Mother HTN (hypertension) Diabetes Stroke Maternal Aunt Breast cancer Uterine cancer Maternal Uncle Breast cancer Paternal Grandmother Uterine cancer Family/Other Mental health disorder Social History Housing: Apartment Alcohol intake: never Patient Tobacco Use Status: Former Tobacco user Cigarettes Per Day: 1 e-Cigarette/Vaping Use: Never Used service: No Current occupational status: employed 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 1. Little interest or pleasure in doing things: nearly every day 2. Feeling down, depressed, or hopeless: nearly every day 3. Trouble falling or staying asleep, or sleeping too much: nearly every day 4. Feeling tired or having little energy: nearly every day 5. Poor appetite or overeating: several days 6. Feeling bad about yourself - or that you are a failure or have let yourself or your family down: nearly every day 7. Trouble concentrating on things, such as reading the newspaper or watching television: nearly every day 8. Moving or speaking so slowly that other people could have noticed. Or the opposite - being so fidgety or restless that you have been moving around a lot more than usual: several days 9. Thoughts that you would be better off or of hurting yourself in some way: nearly every day Total score: 23 Depression Screening Interpretation: Positive (no suicidal thoughts) Depression Screening Follow-up: Existing condition and Follow-up Visit Requested Depression Screening Done: Yes 87077 - PHQ-9 Billing: Yes Source: Developed by Drs. Chapo Licea, Carolina Valdez, Avtar Acosta and colleagues, with an educational diamond from [employer]. Thrive Questionnaire Date Thrive assessed: 10/25/24 I am a: Patient What is your living situation today?: I choose not to answer this question Within the past 12 months, did the food you bought not last and you didn't have the money to get more?: I choose not to answer this question Within the past 12 months, did you worry whether your food would run out before you got money to buy more?: I choose not to answer this question Do you have trouble paying for medicines?: I choose not to answer this question Do you have trouble getting transportation to medical appointments?: I choose not to answer this question Do you have trouble paying your heating and electricity bill?: I choose not to answer this question Do you have trouble taking care of your child, family member or friend?: I choose not to answer this question Do you have trouble with day-to-day activities such as bathing, preparing meals, shopping, managing finances, etc.?: I choose not to answer this question Are you currently unemployed and looking for a job?: I choose not to answer this question Are you interested in more education?: I choose not to answer this question Please select the resources that you would like help with: None Currently or been in a relationship where the following occur: I choose not to answer THRIVE Score: 0 AUDIT C Alcohol Use Questionnaire (AUDIT-C) 1. How often do you have a drink containing alcohol?: Never 3. How often do you have six or more drinks on one occasion?: Never Total Score: 0 Score Reviewed/Action Taken: No QUINCY-7 AMB Questionnaire QUINCY-7 Date QUINCY - 7 assessed: 10/25/24 Feeling nervous, anxious, or on edge: 3 = Nearly every day Not being able to stop or control worryin = Nearly every day Worrying too much about different things: 3 = Nearly every day Trouble relaxin = Nearly every day Being so restless that it is hard to sit still: 3 = Nearly every day Becoming easily annoyed or irritable: 3 = Nearly every day Feeling afraid as if something awful might happen: 3 = Nearly every day Total QUINCY-7 score (0-4 normal; 5-9 mild; 10-14 moderate; 15-21 severe): 21 Source: Developed by Drs. Chapo Licea, Carolina Valdez, Avtar Acosta and colleagues, with an educational diamond from [employer]. QUINCY-7 Assessment Billing QUINCY-7 Assessment Tool: QUINCY-7 Assessment 44702 Review of Systems Const All systems reviewed & are unremarkable except as noted in HPI and below Card Denies chest pain at rest, Denies chest pain with activity, Denies edema, Denies irregular heart rhythm, Denies claudication, Denies dyspnea, Denies dyspnea on exertion, Denies orthopnea, Denies paroxysmal nocturnal dyspnea and Denies slow heart rate Resp Denies cough, Denies dyspnea and Denies dyspnea on exertion Neuro Denies lack of coordination Physical exam (Primary Care) Vital Signs: Last Vital Signs Temp 97.3 F 10/25/24 12:47 Pulse 65 10/25/24 12:47 Resp 16 10/25/24 12:47 BP 116/78 10/25/24 12:47 Pulse Ox 99 10/25/24 12:47 Oxygen Delivery Method Room Air 10/25/24 12:47 BMI result Body Mass Index 40.6 Tobacco/Smoking Status: Tobacco use Status Tobacco use date assessed 10/25/24 10/25/24 12:52 Patient Tobacco Use Status Former Tobacco user 10/25/24 12:52 e-Cigarette/Vaping Use Never Used 10/25/24 12:52 PHQ-9: PHQ-9 Score PHQ-9: Total score 23 10/25/24 13:25 Depression Screening Interpretation: Positive (no suicidal thoughts) Depression Screening Follow-up: Existing condition and Follow-up Visit Requested Thrive Assessment: Date of Thrive Assessment Date Thrive assessed 10/25/24 10/25/24 12:52 Currently or been in a relationship where the following occur: I choose not to answer [facility] Head: Yes normal to inspection, Yes normocephalic and Yes atraumatic Ears: external ears normal Eyes General: appearance normal, both eyes and all related structures Eyelids: Yes eyelids normal Conjunctivae: conjunctivae normal Neck Neck: Yes normal visual inspection and Yes supple Resp Effort & Inspection: normal respiratory effort Auscultation: clear to auscultation bilaterally Cardio Jugular venous distension: no JVD Rate: regular rate Rhythm: regular rhythm Heart sounds: S1 normal heart sound present and S2 normal heart sound present GI Inspection: Yes normal to inspection Palpation (GI): Soft to palpation and nontender Auscultation: normal bowel sounds Skin General skin exam: no rashes or lesions noted Neuro General: no focal motor deficits Extrem General: Yes full ROM Psych Appearance: grossly normal Coding Level of Care Code Est Pt Level 3 (41832) Est Pt Prev Care 40-64y(83430) Diagnoses Physical exam Z00.00 Polyarthralgia M25.50 Morbid obesity due to excess calories E66.01 Severe recurrent major depression F33.2 Blurry vision H53.8 Chest pain R07.9 Additional Codes QUINCY-7 Assessment Billing - QUINCY-7 Assessment Tool: QUINCY-7 Assessment 51787 ([id number]) PHQ-9 - 36825 - PHQ-9 Billing: Yes ([id number]) Time Spent (min) 35 Assessment & Plan Assessment & Plan (1) Physical exam: Code(s): Z00.00 - Encounter for general adult medical examination without abnormal findings Category: Medical (2) Polyarthralgia: Code(s): M25.50 - Pain in unspecified joint Category: Medical (3) Morbid obesity due to excess calories: Code(s): E66.01 - Morbid (severe) obesity due to excess calories Category: Medical (4) Severe recurrent major depression: Code(s): F33.2 - Major depressive disorder, recurrent severe without psychotic features Category: Medical (5) Blurry vision: Code(s): H53.8 - Other visual disturbances Category: Medical (6) Chest pain: Code(s): R07.9 - Chest pain, unspecified Category: Medical Plan The patient will be referred to rheumatology for evaluation of her diffuse joint pain. Additionally, an ophthalmology consultation is recommended to address her concerns about malabsorption. Given her history of morbid obesity and previous adverse reactions to Wegovy, no further weight loss medications are planned at this time. Preventative care measures include ensuring the patient receives her Tdap vaccination in 2025 and attends her scheduled colonoscopy in December. Patient was informed and verbally consented to the use of an ambient scribe for clinic note documentation during this visit. Orders: Orders Vitamin B12 and Folate Today E53.8 - Deficiency of other specified B group vitamins Vitamin D 25-OH Total Today E55.9 - Vitamin D deficiency, unspecified IRON PROFILE Today D64.9 - Anemia, unspecified Comprehensive [place]. Panel Fast Today Z00.00 - Encounter for general adult medical examination without abnormal findings Complete Blood Count Auto Diff Today D64.9 - Anemia, unspecified Lipid Panel Today E78.5 - Hyperlipidemia, unspecified ECG 12 lead EKG Today R07.9 - Chest pain, unspecified Referrals Rheumatology Referral M25.50 - Pain in unspecified joint Ophthalmology Referral H53.8 - Other visual disturbances
--- OUTSIDE RECORDS SUMMARY | 2024-10-25 13:35 | XMS_ITS | Clinical Summary ---
Author Organization [facility] Address [address] [place] [phone] Phone Care Team Providers Care Manager Highway Name Role Phone Unavailable Primary Care Provider [...]
--- OUTSIDE RECORDS SUMMARY | 2024-10-25 13:35 | XMS_ITS | Clinical Summary ---
Author Organization [employer] [facility] it Address [address] [place] [address] Care Team Providers Care Hand Inspector Name Role Phone Unavailable Primary Care Provider [...]
== END 2024-10-25 13:37 | disposition home or self-care (01) ==
LOC: HO.HMCH 12:45
PROVIDERS: PCP Internal Medicine; Visit Provider Internal Medicine
DX: Z00.00 Encounter for general adult medical examination without abnormal findings (principal); Z68.41 Body mass index [BMI] 40.0-44.9, adult; E66.01 Morbid (severe) obesity due to excess calories; F33.2 Major depressive disorder, recurrent severe without psychotic features; R07.9 Chest pain, unspecified; M25.50 Pain in unspecified joint; H53.8 Other visual disturbances

== ENCOUNTER → 2024-10-25 12:44 | Outpatient (BNVA) | payer OTHER, SELFPAY | PROVIDERS: PCP Internal Medicine; Visit Provider Internal Medicine | DX: M25.50 Pain in unspecified joint (principal); E66.01 Morbid (severe) obesity due to excess calories; F33.2 Major depressive disorder, recurrent severe without psychotic features; H53.8 Other visual disturbances; R07.9 Chest pain, unspecified; Z68.41 Body mass index [BMI] 40.0-44.9, adult | CPT/HCPCS: 96127; 99212; 99396 ==

== ENCOUNTER 2024-11-01 12:07 | Outpatient (REF) | payer OTHER, SELFPAY ==
--- NOTE | 2024-11-01 12:10 | ECG_ITS ---
Test Reason : cp Blood Pressure : */* mmHG Vent. Rate : 58 BPM Atrial Rate : 58 BPM P-R Int : 146 ms QRS Dur : 82 ms QT Int : 400 ms P-R-T Axes : 30 47 48 degrees QTcB Int : 392 ms Sinus bradycardia with sinus arrhythmia Otherwise normal ECG When compared with ECG of 08-Jun-2024 15:47, No significant change was found Referred By: Emily Hill Electronically Signed By: RAVIN IRWIN
--- OUTSIDE RECORDS SUMMARY | 2024-11-01 12:49 | XMS_ITS | Encounter Summary ---
Author Organization [facility] Address [address] [place] [address] Phone Care Team Providers Care Sweat Band Separator Name Role Phone Unavailable Primary Care Provider Unavailabl e Encounter Details Date Type Department Care Team (Late st Contact Info) Description 12/15/[address] [facility] [place] Family Medicine [address] [place] [address] Family Medicine, [place] [address] Social History Tobacco Use Types Packs/Day Years Used Date Smoking Tobacco: Never Assessed Comments Unknown Sex and Gender Information Value Date Recorded Sex Assigned at Not on file Legal Sex Female 3:52 PM EDT Gender Identity Not on file Sexual Orientation Not on file documented as of this encounter Plan of Treatment Not on file documented as of this encounter Visit Diagnoses Not on filedocumented in this encounter
--- OUTSIDE RECORDS SUMMARY | 2024-11-01 12:49 | XMS_ITS | Clinical Summary ---
Author Organization [facility] it Address [address] [place] [address] Care Team Providers Care Preparation Center Coordinator Name Role Phone Unavailable Primary Care Provider [...]
--- OUTSIDE RECORDS SUMMARY | 2024-11-01 12:49 | XMS_ITS | Encounter Summary ---
Author Organization [facility] Address [address] [place] [address] Phone Care Team Providers Care Enterprise Analyst Name Role Phone Unavailable Primary Care Provider Unavailabl e Encounter Details Date Type Department Care Team (Late st Contact Info) Description 12/15/2012 Documentation [facility] [place] Family Medicine [address] [place] [address] Family Medicine, [place] [address] Social History Tobacco Use Types [...]
--- OUTSIDE RECORDS SUMMARY | 2024-11-01 12:49 | XMS_ITS | Encounter Summary ---
Author Organization [facility] Address [address] [place] [phone] Phone Care Team Providers Care Taxi Driver Name Role Phone Unavailable Primary Care Provider Unavailabl e Encounter Details Date Type Department Care Team (Late st Contact Info) Description 12/15/2012 Documentation [facility] [place] Family Medicine [address] [place] [address] Family Medicine, Physician [facility] [place] [address] Social History Tobacco Use Types [...]
--- OUTSIDE RECORDS SUMMARY | 2024-11-01 12:49 | XMS_ITS | Clinical Summary ---
Author Organization [facility] Address [address] [place] [phone] Phone Care Team Providers Care Orthotics Prosthetics Technician Name Role Phone Unavailable Primary Care Provider [...]
--- OUTSIDE RECORDS SUMMARY | 2024-11-01 12:49 | XMS_ITS | Encounter Summary ---
Author Organization [facility] Address [address] [place] [phone] Phone Care Team Providers Care Structural Biologist Name Role Phone Unavailable Primary Care Provider Unavailabl e Encounter Details Date Type Department Care Team (Late st Contact Info) Description 12/15/2012 [place]ation [facility] [place] [address] [place] [address] Family Medicine, Physician [facility] [place] [address] Social History Tobacco Use Types [...]
--- OUTSIDE RECORDS SUMMARY | 2024-11-01 12:49 | XMS_ITS | Encounter Summary ---
Author Organization [facility] Address [address] [place] [address] Phone Care Team Providers Care Committee Member Name Role Phone Unavailable Primary Care Provider Unavailabl e Encounter Details Date Type Department Care Team (Late st Contact Info) Description 12/15/2012 Documentation [facility] [place] Medicine [address] [place] [address] Family Medicine, Physician [facility] [place] [address] Social History Tobacco Use Types [...]
--- OUTSIDE RECORDS SUMMARY | 2024-11-01 12:49 | XMS_ITS | Encounter Summary ---
Author Organization [facility] Address [address] [place] [phone] Phone Care Team Providers Care Steelworker Name Role Phone Unavailable Primary Care Provider Unavailabl e Encounter Details Date Type Department Care Team (Late st Contact Info) Description 12/15/2012 Documentation [facility] [place] Family Medicine [address] [place] [address] Family Medicine, Physician [facility] [place] [address] Social History Tobacco Use Types [...]
--- OUTSIDE RECORDS SUMMARY | 2024-11-01 12:49 | XMS_ITS | Encounter Summary ---
Author Organization [facility] Address [address] [place] [phone] Phone Care Team Providers Care Printing Machine Operator Name Role Phone Unavailable Primary Care Provider Unavailabl e Encounter Details Date Type Department Care Team (Late st Contact Info) Description 12/15/2012 Documentation [facility] [place] [address] [place] [address] Family Medicine, Physician Counts include 234 beds at the [facility] [place] [address] Social History Tobacco Use Types [...]
[2024-11-01 14:54] LABS: Alanine Aminotransferase 18 U/L (0-31); Albumin Level 4.4 g/dL (3.5-5.0); Alkaline Phosphatase 57 U/L (39-117); Anion Gap 12 (12-20); Aspartate Amino Transferase 31 U/L (5-31); Blood Urea Nitrogen 12 mg/dL (9-16); Calcium 9.3 mg/dL (8.4-10.2); Carbon Dioxide 21 mmol/L (22-29); Chloride 109 mmol/L (96-108); Cholesterol 186 mg/dL (<200); Estimated Glomerular Filt Rate > 60; HDL Cholesterol 46 mg/dL (>40); Iron 66 mcg/dL (30-160); Percent Iron Saturation 19 % (15-50); Potassium 4.2 mmol/L (3.3-5.1); Sodium 138 mmol/L (135-145); Total Iron Binding Capacity 350 mcg/dL (228-428); Total Protein 7.2 g/dL (6.5-8.0); Triglycerides 63 mg/dL (<150); Unsaturated Iron Binding 284 ug/dL
[2024-11-01 15:15] LABS: Folate 8.8 ng/mL (> or = 4.0); Vitamin B12 268 pg/mL (200-900)
== END 2024-11-01 12:08 | disposition home or self-care (01) ==
LOC: HO.LAB 12:07
PROVIDERS: PCP Internal Medicine; Visit Provider Internal Medicine
DX: Z00.00 Encounter for general adult medical examination without abnormal findings (principal); E53.8 Deficiency of other specified B group vitamins; E55.9 Vitamin D deficiency, unspecified; D64.9 Anemia, unspecified; E78.5 Hyperlipidemia, unspecified; R07.9 Chest pain, unspecified
CPT/HCPCS: 36415; 80053; 80061; 82306; 82607; 82746; 83540; 85025; 93005

== ENCOUNTER → 2024-11-01 12:10 | Outpatient (BNV) | payer OTHER, SELFPAY | PROVIDERS: PCP Internal Medicine; Visit Provider Internal Medicine | DX: R00.1 Bradycardia, unspecified (principal) | CPT/HCPCS: 93010 ==

== ENCOUNTER 2024-12-26 13:41 | Outpatient (AMB) | payer OTHER, SELFPAY ==
--- NOTE | 2024-12-26 13:53 | MHC.OFFVIS ---
Vital Signs 12/26/24 13:55 Height 5 ft 2 in Weight 224 lb 6.889 oz BMI 41.0 BP 110/72 Blood Pressure Location Rt brachial Position Sitting Intake Visit Reasons: colo screening Intake Note: New patient in office today for colonoscopy screening. CC: Patient c/o LLQ abdominal pain for years, difficulty passing gas, constipation, nausea, abd bloating, and acid reflux. She states that she wakes up every other day with vomit coming up and chocking. She also reports feeling that pills get stuck in her throat sometimes. 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 Accompanied by: Self / Same As Patient Allergies ferrous sulfate Allergy (Severe, Verified 12/26/24 14:04) abdominal pain Sulfa (Sulfonamide Antibiotics) Allergy (Severe, Verified 12/26/24 14:04) RASH, TROUBLE SWALLOWING, DIFFICULTY BREATHING, anaphylaxis venlafaxine (From Effexor) Allergy (Severe, Verified 12/26/24 14:04) anaphylaxis/tongue swelling ibuprofen (From MOTRIN) Allergy (Intermediate, Verified 12/26/24 14:04) SHORTNESS OF BREATH morphine (MORPHINE) Allergy (Intermediate, Verified 12/26/24 14:04) NAUSEA/VOMITING, anaphylaxis aspirin (Aspirin) Allergy (Mild, Verified 12/26/24 14:04) hives/rash/SOB/difficulty swallowing/throat swelling hydromorphone (From DILAUDID) Adverse Reaction (Intermediate, Verified 12/26/24 14:04) DYSPHORIA semaglutide (From Wegovy) Adverse Reaction (Intermediate, Verified 12/26/24 14:04) headache,abdominal pain HPI HPI colo screening: Details: 44-year-old female here for preprocedural meeting to discuss a screening colonoscopy. She is referred by Emily Orellana. PMX Morbid obesity History of cocaine use Chronic fatigue Nephrolithiasis Constipation Chronic pelvic pain/PID Abnormal uterine bleeding Migraines Depression with anxiety * SURGICAL HISTORY Cholecystectomy Tubal ligation section Breast reduction surgery Ankle surgery * ALLERGIES Ferrous sulfate Sulfa Effexor Ibuprofen Morphine Aspirin Hydromorphone Wegovy * [employer] LABS: Laboratory Tests 06/08/24 08/29/24 11/01/24 16:03 14:15 12:12 WBC 6.7 Hgb 12.5 Hct 37.2 Plt Count 254 Estimated GFR > 60 Total Bilirubin 0.6 AST 31 ALT 18 Alkaline Phosphatase 57 TSH 1.46 TODAY'S VISIT This is her 1st colonoscopy. Chronic bowel problems that appear to be insufficiently controlled constipation that causes bloating nausea and vomiting when she is severely backed up. In the past utilized senna but then it seems to have stopped working for her, and when she utilizes other ezwz-oqh-usykqpgx including MiraLax, Dulcolax, Colace, milk of magnesia, MiraLax it will take many days to work and does not provide her sufficient relief. We will start her on Linzess 145 micro g and titrate to affect her side effect. She denies any cardiac or respiratory problems. There are no prior problems with anesthesia or sedation except for postop nausea and vomiting with general anesthesia. There are no infectious disease problems. FHX:No known FHX crc or polyps. [facility] Medical History Left renal stone Severe recurrent major depression QUINCY (generalized anxiety disorder) Physical exam Physical exam Screen for sexually transmitted diseases Pelvic pain Well woman exam Hx of chronic endometritis Pelvic inflammatory disease (PID) Bacterial vaginosis Cervical cancer screening Blurry vision Morbid obesity due to excess calories Hypovitaminosis D B12 deficiency Depression with anxiety History of cocaine use Chronic fatigue Iron deficiency anemia Surgical History History of ankle surgery Hx of cholecystectomy H/O tubal ligation H/O section Hx of breast reduction, elective Family History Father HTN (hypertension) Liver disease due to alcohol Mother HTN (hypertension) Diabetes Stroke Maternal Aunt Breast cancer Uterine cancer Maternal Uncle Breast cancer Paternal Grandmother Uterine cancer Family/Other Mental health disorder Family/Other Breast cancer Social History Housing: Apartment Alcohol intake: never Patient Tobacco Use Status: Former Tobacco user Cigarettes Per Day: 1 e-Cigarette/Vaping Use: Never Used service: No Current occupational status: employed 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 Current occupational exposures/hazards: No Cognitive needs: No Hearing needs: No Vision needs: No Female Reproductive History Menstrual Age of Menarche: 9 Review of Systems Const Denies fatigue, Denies fever(s), Denies night sweats, Denies poor appetite and Denies weight loss ENT Reports Normal hearing present, Denies dental pain, Denies dysphagia, Denies hearing loss, Denies mouth pain, Reports neck pain, Denies odynophagia, Denies throat swelling, Denies tongue swelling and Reports other (Dentition adequate) Card Reports no additional complaints Resp Reports no additional complaints GI Details: Reports abdominal pain, Denies melena, Denies bloating, Denies hematochezia, Reports constipation, Denies GI cramping, Denies dysphagia, Denies excessive flatus, Denies early satiety, Reports heartburn, Denies diarrhea, Reports nausea, Denies odynophagia, Denies vomiting and Denies hematemesis Musc Reports back pain, Reports myalgias and Reports neck pain Skin/Breast Denies pruritus, Denies lesions, Denies rash and Denies jaundice Neuro Reports Normal hearing present and Denies Abnormal speech present Endo Denies fatigue Aller/Immun Denies throat swelling and Denies tongue swelling Physical Exam Vital Signs: Last Vital Signs BP 110/72 12/26/24 13:55 BMI result Body Mass Index 41.0 Const General: cooperative, no acute distress, well developed and well groomed Nutritional Appearance: well nourished and obese Orientation/consciousness: oriented to person, oriented to place and oriented to time Limitations: No language barrier HEENT Head: Yes normocephalic and Yes atraumatic Eyes General: appearance normal, both eyes and all related structures Pupils: Equal, round and reactive pupils present Neck Neck: Yes normal visual inspection and Yes no lymphadenopathy Thyroid: Thyroid normal Resp Effort & Inspection: normal respiratory effort and able to speak in complete sentences Auscultation: clear to auscultation bilaterally Cardio Rate: regular rate Rhythm: regular rhythm Heart sounds: Normal, physiologic split S2 sound present Peripheral pulses: radial pulses present and posterior tibial pulses present GI Inspection: No distended, Yes Abdominal panniculus present and Yes obesity Palpation (GI): Soft to palpation, Tenderness to palpation present (GI) in the LLQ and in the LUQ, no guarding, not rigid and No hepatosplenomegaly present Percussion: Yes normal to percussion Auscultation: normal bowel sounds Rectal Exam - Female: deferred Abdomen image:  1. surgical scars 2. 3. Skin General skin exam: no rashes or lesions noted, turgor normal, skin not dry, no jaundice, No spider nevi and no striae Rashes: no rashes Nails: normal Neuro General: oriented to person, oriented to place and oriented to time Cranial nerves: Yes Equal, round and reactive pupils present and Yes Normal hearing present Speech: No Abnormal speech present Extrem General: Yes normal to inspection, No clubbing, No cyanosis and No edema Psych Appearance: grossly normal and well kempt Mental Status: mental status grossly normal Speech and movement: Normal speech and movement present Affect: normal affect Attitude: cooperative Thought process: Normal thought process present and not confabulating Thought content: Normal thought content present Insight: Fair insight present (Psych) Judgement: Fair judgement present (Psych) Assessment & Plan Assessment & Plan (1) Pre-op examination: Code(s): Z01.818 - Encounter for other preprocedural examination Category: Medical (2) Morbid obesity due to excess calories: Code(s): E66.01 - Morbid (severe) obesity due to excess calories Category: Medical (3) PONV (postoperative nausea and vomiting): Code(s): R11.2 - Nausea with vomiting, unspecified; Z98.890 - Other specified postprocedural states Category: Medical (4) Constipation: Code(s): K59.00 - Constipation, unspecified Category: Medical Plan This is her 1st colonoscopy. Chronic bowel problems that appear to be insufficiently controlled constipation that causes bloating nausea and vomiting when she is severely backed up. In the past utilized senna but then it seems to have stopped working for her, and when she utilizes other txca-emk-aiztnzgz including MiraLax, Dulcolax, Colace, milk of magnesia, MiraLax it will take many days to work and does not provide her sufficient relief. We will start her on Linzess 145 micro g and titrate to affect her side effect. She denies any cardiac or respiratory problems. There are no prior problems with anesthesia or sedation except for postop nausea and vomiting with general anesthesia. There are no infectious disease problems. FHX:No known FHX crc or polyps. Orders: Referrals GI Procedure Notification E66.01 - Morbid (severe) obesity due to excess calories, Z01.818 - Encounter for other preprocedural examination Medications: New peg 3350-electrolytes 236-22.74-6.74 -5.86 gram (Golytely) until fecal effluent is clear; do not exceed a total volume of 2,000 mL 240 mL PO Q10M 4,000 mL 0RF 1 day Z12.11 - Encounter for screening for malignant neoplasm of colon linaclotide (Linzess) Take first thing in the morning with a full glass of water. 145 mcg PO QAM 30 caps 6RF K58.1 - Irritable bowel syndrome with constipation bisacodyl (Dulcolax (bisacodyl)) 10 mg (2 x 5 mg) PO BEDTIME 4 tabs 0RF 2 days Coding Level of Care Code New Pt Level 3 (44473) Diagnoses Pre-op examination Z01.818 Morbid obesity due to excess calories E66.01 PONV (postoperative nausea and vomiting) R11.2; Z98.890 Constipation K59.00
[2024-12-26 13:55] VITALS: BP 110/72; BMI 41.0
== END 2024-12-26 14:38 | disposition home or self-care (01) ==
LOC: HO.HGI 13:42
PROVIDERS: PCP Obstetrics & Gynecology; Visit Provider Nurse Practitioner
DX: K59.00 Constipation, unspecified (principal); R10.32 Left lower quadrant pain; Z01.818 Encounter for other preprocedural examination; Z12.11 Encounter for screening for malignant neoplasm of colon; R11.2 Nausea with vomiting, unspecified
CPT/HCPCS: 99203

== ENCOUNTER → 2024-12-26 13:41 | Outpatient (BNVA) | payer OTHER, SELFPAY | PROVIDERS: PCP Obstetrics & Gynecology; Visit Provider Nurse Practitioner | DX: Z01.818 Encounter for other preprocedural examination (principal); E66.01 Morbid (severe) obesity due to excess calories; R11.2 Nausea with vomiting, unspecified | CPT/HCPCS: 99202 ==

== ENCOUNTER 2025-01-17 16:29 | Emergency (ER) | payer OTHER, SELFPAY ==
[2025-01-17 16:37] VITALS: BP 136/72; PULSE 68; RESP 18; TEMP 36.6; O2SAT 100; BMI 41.2
--- NOTE | 2025-01-17 16:39 | ED.GENADULT ---
HPI - General Adult General Chief complaint: Headache Stated complaint: migraine Time Seen by Provider: 01/17/25 17:05 Source: patient, RN notes reviewed and old records reviewed Mode of arrival: ambulatory Limitations: no limitations History of Present Illness ED Provider: Reji HPI narrative: 44-year-old female with past medical history significant for migraine headaches presents for evaluation of a headache. She describes a headache that has been present for about a week and a half. She states that her vision is some what watery and blurry. denies any trauma to the head or neck. She has taken Tylenol without any significant improvement in his symptoms. Denies any fevers, chills, neck pain. She has nausea but no vomiting. She endorses light sensitivity no other complaints or concerns at this time Related Data Home Medications ?Medication ?Instructions ?Recorded ?Confirmed citalopram 40 mg tablet 40 mg PO BEDTIME 12/04/19 10/25/24 lorazepam 1 mg tablet 1 mg PO TID PRN Anxiety 12/04/19 10/25/24 zolpidem 10 mg tablet 10 mg PO BEDTIME PRN insomnia 05/13/22 10/25/24 gabapentin 400 mg capsule 400 mg PO BEDTIME 12/26/24 Previous Rx's ?Medication ?Instructions ?Recorded acetaminophen 650 mg 650 mg PO Q8H PRN pain 30 days #90 04/01/24 tablet,extended release tabs cyclobenzaprine 10 mg tablet 10 mg PO TID PRN muscle spasm #20 06/08/24 tabs medroxyprogesterone 10 mg tablet 10 mg PO DAILY 90 days #30 tabs 10/24/24 (Provera) cholecalciferol (vitamin D3) 25 25 mcg PO DAILY 90 days #90 caps 11/01/24 mcg (1,000 unit) capsule bisacodyl 5 mg tablet,delayed 10 mg (2 x 5 mg) PO BEDTIME 2 days 12/26/24 release (Dulcolax (bisacodyl)) #4 tabs linaclotide 145 mcg capsule 145 mcg PO QAM #30 caps 12/26/24 (Linzess) peg 3350-electrolytes 236 240 ml PO Q10M 1 day #4,000 mL 12/26/24 gram-22.74 gram-6.74 gram-5.86 gram solution (Golytely) plzbuifdue-cjxpufhpvthwp-hgnytpbo 1 cap PO Q6H PRN pain #12 caps 01/17/25 50 mg-300 mg-40 mg capsule (Fioricet) Allergies Allergy/AdvReac Type Severity Reaction Status Date / Time ferrous sulfate Allergy Severe abdominal Verified 01/17/25 16:40 pain Sulfa (Sulfonamide Allergy Severe RASH, Verified 01/17/25 16:40 Antibiotics) TROUBLE SWALLOWING, DIFFICULTY BREATHING, anaphylaxis venlafaxine (From Effexor) Allergy Severe anaphylaxis/tongue Verified 01/17/25 16:40 swelling ibuprofen (From MOTRIN) Allergy Intermediate SHORTNESS Verified 01/17/25 16:40 OF BREATH morphine (MORPHINE) Allergy Intermediate NAUSEA/VOMITING, Verified 01/17/25 16:40 anaphylaxis aspirin (Aspirin) Allergy Mild hives/rash/SOB/difficulty Verified 01/17/25 16:40 swallowing/throat swelling hydromorphone (From DILAUDID) AdvReac Intermediate DYSPHORIA Verified 01/17/25 16:40 semaglutide (From Wegovy) AdvReac Intermediate headache,abdominal Verified 01/17/25 16:40 pain Review of Systems Constitutional: Constitutional: Denies anorexia, Denies body ache(s), Denies chills, Denies fever(s) and Reports headache(s) Eyes: Eyes: Reports blurry vision, Denies eye discharge, Denies dry eyes, Denies floaters, Denies seeing flashes and Reports photophobia ENT: Denies vertigo, Denies dizziness and Reports headache(s) Cardiovascular: Cardiovascular: Denies chest pain and Denies dyspnea on exertion Respiratory: Respiratory: Denies cough and Denies dyspnea on exertion Gastrointestinal: Gastrointestinal: Denies abdominal pain, Denies nausea and Denies vomiting Musculoskeletal: Musculoskeletal: Denies back pain Integumentary/Breasts: Skin/Breast: Denies rash Neurologic: Denies vertigo, Denies dizziness and Reports headache(s) Psychiatric: Psychiatric: Denies anxiety PMFSH Past Medical History Medical History Left renal stone Severe recurrent major depression QUINCY (generalized anxiety disorder) Physical exam Physical exam Screen for sexually transmitted diseases Pelvic pain Well woman exam Hx of chronic endometritis Pelvic inflammatory disease (PID) Bacterial vaginosis Cervical cancer screening Blurry vision Morbid obesity due to excess calories Hypovitaminosis D B12 deficiency Depression with anxiety History of cocaine use Chronic fatigue Iron deficiency anemia Surgical History History of ankle surgery Hx of cholecystectomy H/O tubal ligation H/O section Hx of breast reduction, elective Family History Family History Father HTN (hypertension) Liver disease due to alcohol Mother HTN (hypertension) Diabetes Stroke Maternal Aunt Breast cancer Uterine cancer Maternal Uncle Breast cancer Paternal Grandmother Uterine cancer Family/Other Mental health disorder Family/Other Breast cancer Social History Social History Housing: Apartment Alcohol intake: former Patient Tobacco Use Status: Former Tobacco user Cigarettes Per Day: 1 Smoked in Last 30 Days: No e-Cigarette/Vaping Use: Never Used Use of substances other than those prescribed or required for medical reasons: No Advance Directives: No Advance Directives Information Provided: No Do you have a plan to hurt others: No Plan service: No Current occupational status: employed 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 Current occupational exposures/hazards: No Cognitive needs: No Hearing needs: No Vision needs: No Physical Exam ED Vital Signs: Vital Signs - 24 hr 01/17/25 16:37 Temperature 98 F Pulse Rate 68 Respiratory Rate 18 Blood Pressure 136/72 Pulse Oximetry 100 BMI result Body Mass Index 41.2 Const General: healthy appearing, comfortable, no acute distress, alert and awake Nutritional Appearance: well nourished Orientation/consciousness: patient oriented x3 HENMT Head: Yes normocephalic and Yes atraumatic Eyes Visual Hawley: normal visual hawley by confrontation Alignment and Position: alignment normal Periorbital: periorbital findings normal Eyelids: Yes eyelids normal Conjunctivae: conjunctivae normal Sclerae: sclerae normal Corneas: corneas normal Pupils: Equal, round and reactive pupils present EOM: EOMs intact bilaterally Direct Ophthalmoscopy: no photophobia, no papilledema and photophobia Neck Neck: Yes full ROM Resp Effort & Inspection: normal respiratory effort, able to speak in complete sentences and not labored Skin General skin exam: elasticity normal Neuro General: patient oriented x3 Cranial nerves: Yes CN's II-XII intact bilaterally, Yes Equal, round and reactive pupils present and Yes Bilaterally intact EOM present Cognition (Neuro): normal cognition Extrem Other: Moving all extremities well without any obvious deformities Course Course Course Narrative: This is a Rapid Medical Examination (RME) performed by Reza Pickering PA-C in triage. Full HPI, ROS, assessment and treatment plan per primary provider in the Main ED. Hx: 44 yo F hx migraines here w/ migraine x1 week. assoc blurred vision x both eyes, photophobia. Plan: labs Reevaluation(s) Reevaluation #1: the patient reports that her headache is significantly improved and she is stable for discharge. She would like to be discharged with Fioricet and I will give her a short prescription. Time: 19:51 Medications Administered Discontinued Medications Generic Name Dose Route Start Last Admin Trade Name Freq PRN Reason Stop Dose Admin Diphenhydramine HCl 25 mg 01/17/25 17:37 01/17/25 17:47 Diphenhydramine Hcl 50 Mg/Ml Vial IVPUSH 01/17/25 17:38 25 mg ONCE ONE Administration Sodium Chloride 1,000 mls @ 999 mls/hr 01/17/25 17:45 01/17/25 18:48 Ns IV 01/17/25 18:45 Infused .Q1H1M HONEY Infusion Acetaminophen 1,000 mg in 100 mls @ 400 mls/hr 01/17/25 17:37 01/17/25 18:20 Ofirmev IV 01/17/25 17:51 Infused ONCE ONE Infusion Metoclopramide HCl 10 mg 01/17/25 17:37 01/17/25 17:47 Metoclopramide Hcl 10 Mg/2 Ml Vial IVPUSH 01/17/25 17:38 10 mg ONCE ONE Administration Medical Decision Making Medical Decision Making [facility] Narrative: 44-year-old female presents for evaluation of a headache has been ongoing for about 10 days now. She denies any fevers, chills, neck pain or other infectious / viral symptoms. I have a low suspicion for meningitis/ encephalitis especially given the duration of her headache. There has not been any trauma to the head or neck. She does not carry a history of migraine. Her physical exam is quite reassuring. She had labs, no leukocytosis or elevation of inflammatory markers, less likely temporal arteritis. We will treat her headache with IV fluids, Reglan, Benadryl and acetaminophen IV as she has several medication allergies including NSAIDs Differential Diagnosis Differential Diagnoses: The differential diagnosis associated with the presentation includes as above Lab Data MDM Lab Attestation statement: I reviewed the patient's lab results. no leukocytosis or anemia. Normal platelet count. No electrolyte abnormalities warranting intervention. 01/17/25 17:01 01/17/25 17:01 Labs: Lab Results 01/17/25 Range/Units 17:01 WBC 6.1 (4.8-10.8) X10*3/uL RBC 4.67 (4.20-5.50) X10*6/uL Hgb 13.4 (12.0-16.0) g/dl Hct 40.0 (37.0-47.0) % MCV 85.7 (80.0-98.0) fL MCH 28.7 (27.0-33.0) pg MCHC 33.5 (31.0-35.0) g/dl RDW 13.5 (11.0-16.0) % Plt Count 269 (160-400) X10*3/uL MPV 9.1 L (9.4-12.3) fL Immature Gran % (Auto) 0.2 (0.0-0.4) % Neut % (Auto) 65.5 (45-73) % Lymph % (Auto) 27.8 (20-40) % Grayson % (Auto) 5.7 (2-11) % Eos % (Auto) 0.3 (0-4) % Baso % (Auto) 0.5 (0-2) % Lymph # (Auto) 1.7 (1.2-4.9) X10*3/uL Grayson # (Auto) 0.4 (0.1-1.2) X10*3/uL Eos # (Auto) 0.0 (0.0-0.4) X10*3/uL Baso # (Auto) 0.0 (0.0-0.2) X10*3/uL Abs Immat Gran (auto) 0.01 (0.00-0.03) X10*3/uL Absolute Neuts (auto) 4.0 (2.0-8.3) x10*3/uL Absolute Nucleated RBC 0.000 (0.0-0.012) X10*3/uL Nucleated RBC % (auto) 0.0 (0.0-0.2) /100WBC ESR 9 (0-20) MM/HR Sodium 138 (135-145) mmol/L Potassium 3.5 (3.3-5.1) mmol/L Chloride 108 (96-108) mmol/L Carbon Dioxide 24 (22-29) mmol/L Anion Gap 10 L (12-20) BUN 11 (9-16) mg/dL Creatinine 0.69 (0.5-1.4) mg/dL Estim Creat Clear Calc 114.1 Estimated GFR > 60 Random Glucose 90 (60-115) mg/dL Calcium 9.4 (8.4-10.2) mg/dL Magnesium 2.0 (1.6-2.6) mg/dL Total Bilirubin 0.6 (0.0-1.0) mg/dL AST 22 (5-31) U/L ALT 22 (0-31) U/L Alkaline Phosphatase 53 (39-117) U/L C-Reactive Protein 0.12 (< or = 0.50) mg/dL Total Protein 7.5 (6.5-8.0) g/dL Albumin 4.8 (3.5-5.0) g/dL Tests considered The following testing was considered but not selected: consider CT scan of the brain but ultimately the patient does carry diagnosis of migraines and has a reassuring exam, this was deferred. Discharge Plan Discharge Clinical Impression: Acute headache Patient Disposition: Home, Self-Care Instructions: Acute Headache (ED) Additional Instructions: Your exam today was reassuring as was your blood work. You may use Fioricet as needed for breakthrough headaches. This may make you drowsy, do not drink alcohol or drive after taking it pain Follow up with your primary doctor, return for new or worsening symptoms Prescriptions: New dgwhjsdmcx-yrsblkxgshapw-geyu [Fioricet] 50-300-40 mg capsule 1 cap PO Q6H PRN (Reason: pain) Qty: 12 0RF No Action acetaminophen 650 mg tablet extended release 650 mg PO Q8H PRN (Reason: pain) 30 Days Qty: 90 0RF cholecalciferol (vitamin D3) 25 mcg (1,000 unit) capsule 25 mcg PO DAILY 90 Days Qty: 90 3RF cyclobenzaprine 10 mg tablet 10 mg PO TID PRN (Reason: muscle spasm) Qty: 20 0RF citalopram 40 mg tablet 40 mg PO BEDTIME lorazepam 1 mg tablet 1 mg PO TID PRN (Reason: Anxiety) zolpidem 10 mg tablet 10 mg PO BEDTIME PRN (Reason: insomnia) bisacodyl [Dulcolax (bisacodyl)] 5 mg tablet,delayed release (DR/EC) 10 mg PO BEDTIME 2 Days Qty: 4 0RF peg 3350-electrolytes [Golytely] 236-22.74-6.74 -5.86 gram recon soln 240 ml PO Q10M 1 Days Qty: 4000 0RF Rx Instructions: until fecal effluent is clear; do not exceed a total volume of 2,000 mL gabapentin 400 mg capsule 400 mg PO BEDTIME Linzess 145 mcg capsule 145 mcg PO QAM Qty: 30 6RF Rx Instructions: Take first thing in the morning with a full glass of water. medroxyprogesterone [Provera] 10 mg tablet 10 mg PO DAILY 90 Days Qty: 30 0RF Rx Instructions: start Provera 1 tablet daily from day 15-24 cyclically every months, day 1 being 1st day of menses Print Language: Other
[2025-01-17 17:05] LABS: MANUAL DIFF FLAG NO
[2025-01-17 17:13] LABS: Hematocrit 40.0 % (37.0-47.0); Hemoglobin 13.4 g/dl (12.0-16.0); Imm Gran Abs Auto 0.01 X10*3/uL (0.00-0.03); Imm Gran Pct Auto 0.2 % (0.0-0.4); Lymphocytes Absolute Auto 1.7 X10*3/uL (1.2-4.9); Mean Corpuscular HGB Conc 33.5 g/dl (31.0-35.0); Mean Corpuscular Hemoglobin 28.7 pg (27.0-33.0); Mean Corpuscular Volume 85.7 fL (80.0-98.0); NRBC Abs Auto 0.000 X10*3/uL (0.0-0.012); NRBC Pct Auto 0.0 /100WBC (0.0-0.2); Platelet Count 269 X10*3/uL (160-400); Red Blood Count 4.67 X10*6/uL (4.20-5.50); White Blood Count 6.1 X10*3/uL (4.8-10.8)
[2025-01-17 17:21] LABS: Alanine Aminotransferase 22 U/L (0-31); Albumin Level 4.8 g/dL (3.5-5.0); Alkaline Phosphatase 53 U/L (39-117); Anion Gap 10 (12-20); Aspartate Amino Transferase 22 U/L (5-31); Blood Urea Nitrogen 11 mg/dL (9-16); Calcium 9.4 mg/dL (8.4-10.2); Carbon Dioxide 24 mmol/L (22-29); Chloride 108 mmol/L (96-108); Creatinine Clr Calc Pharmacy 114.1; Estimated Glomerular Filt Rate > 60; Magnesium 2.0 mg/dL (1.6-2.6); Potassium 3.5 mmol/L (3.3-5.1); Sodium 138 mmol/L (135-145); Total Protein 7.5 g/dL (6.5-8.0)
[2025-01-17 17:53] LABS: Erythrocyte Sedimentation Rate 9 MM/HR (0-20)
--- NOTE | 2025-01-17 19:07 | PC.NURSE ---
Patient used call platt, out of bed to bathroom at this time. Ambulates with steady gait.
--- OUTSIDE RECORDS SUMMARY | 2025-01-17 19:09 | XMS_ITS | Clinical Summary ---
Author Organization [facility] Address [address] [place] [id number] Phone Care Team Providers Care Quality Assurance Consultant Name Role Phone Unavailable Primary Care Provider [...] of 3 - 19+ 3-dose series) 1997 Influenza Vaccines (#1) 2024 COVID-19 Vaccine (2024-2 6 season) 2024 HIB Vaccines Aged Out No longer [...]
--- OUTSIDE RECORDS SUMMARY | 2025-01-17 19:09 | XMS_ITS | Clinical Summary ---
Author Organization [facility] ity Address [address] [place] [address] Care Team Providers Care Lean Manufacturing Engineer Name Role Phone Unavailable Primary Care Provider [...] Last Done Comments Breast Cancer Screening 1978 Colorectal Cancer Screening: Colonoscopy 1978 DTaP,Tdap,and Td Vaccines (1 - Tdap) 1997 Hepatitis B Vaccines (1 of 3 - 19+ 3-dose series) 1997 Cervical Cancer Screening: P ap Smear 1999 HIV Screening 04/06/2023 Hepatitis C Screening 04/06/2023 Social Influencers of Health Screening 04/06/2023 Depression Screening 03/08/2024 COVID-19 Vaccine (1 - 2024-2 6 season) 2024 Influenza Vaccine (#1) 2024 RSV Immunization Adult Patie nts (1 - 1-dose 75+ series) 2053 HIB Vaccines Aged Out No longer eligi [...]
--- OUTSIDE RECORDS SUMMARY | 2025-01-17 19:09 | XMS_ITS | Encounter Summary ---
Author Organization [facility] Address [address] [place] [phone] Phone Care Team Providers Care Rivet Catcher Name Role Phone Unavailable Primary Care Provider Unavailabl e Encounter Details Date Type Department Care Team (Late st Contact Info) Description 12/15/2012 Documentation [facility] [address] [place] [address] Family Medicine, Physician [facility] [place] [address] Social History Tobacco Use Types [...]
--- OUTSIDE RECORDS SUMMARY | 2025-01-17 19:09 | XMS_ITS | Encounter Summary ---
Author Organization [facility] Address [address] [place] [phone] Phone Care Team Providers Care Outside Sales Advertising Executive Name Role Phone Unavailable Primary Care Provider Unavailabl e Encounter Details Date Type Department Care Team (Late st Contact Info) Description 12/15/[address] [facility] [place] Family Medicine [address] [place] [address] Family Medicine, Physician [facility] [place] [address] Social History Tobacco Use Types [...]
--- OUTSIDE RECORDS SUMMARY | 2025-01-17 19:09 | XMS_ITS | Encounter Summary ---
Author Organization [facility] Address [address] [place] [address] Phone Care Team Providers Care Insulation Mechanic Name Role Phone Unavailable Primary Care Provider Unavailabl e Encounter Details Date Type Department Care Team (Late st Contact Info) Description 12/15/2012 [place] [facility] [place] [address] [place] [address] Family Medicine, Physician [facility] [place] [address] Social History Tobacco Use Types [...]
--- OUTSIDE RECORDS SUMMARY | 2025-01-17 19:09 | XMS_ITS | Encounter Summary ---
Author Organization [facility] Address [address] [place] [phone] Phone Care Team Providers Care Inventory Associate And Driver Name Role Phone Unavailable Primary Care Provider Unavailabl e Encounter Details Date Type Department Care Team (Late st Contact Info) Description 12/15/2012 Documentation [facility] [place] [address] [place] [address] Family Medicine, Physician [facility] [place] [address] Social History Tobacco Use Types [...]
--- OUTSIDE RECORDS SUMMARY | 2025-01-17 19:09 | XMS_ITS | Encounter Summary ---
Author Organization [facility] Address [address] [place] [address] Phone Care Team Providers Care Silver Miner Name Role Phone Unavailable Primary Care Provider Unavailabl e Encounter Details Date Type Department Care Team (Late st Contact Info) Description 12/15/2012 Documentation [facility] [place] [address] [place] [address] Family Medicine, Physician [facility] [place] [address] Social History Tobacco Use Types [...]
--- OUTSIDE RECORDS SUMMARY | 2025-01-17 19:09 | XMS_ITS | Encounter Summary ---
Author Organization [facility] Address [address] [place] [address] Phone Care Team Providers Care Leaf Stamper Name Role Phone Unavailable Primary Care Provider Unavailabl e Encounter Details Date Type Department Care Team (Late st Contact Info) Description 12/15/2012 Documentation [facility] [place] [address] [place] [address] Family Medicine, Physician [place] [address] Social History Tobacco Use Types [...]
--- OUTSIDE RECORDS SUMMARY | 2025-01-17 19:09 | XMS_ITS | Encounter Summary ---
Author Organization [facility] Address [address] [place] [phone] Phone Care Team Providers Care Regional Refrigerated Cdl Truck Driver Name Role Phone Unavailable Primary Care Provider Unavailabl e Encounter Details Date Type Department Care Team (Late st Contact Info) Description 12/15/2012 Documentation [facility] [place] [address] [place] [address] Family Medicine, Physician [facility] [place] [address] Social History Tobacco Use Types [...]
[2025-01-17 20:11] VITALS: BP 136/72; PULSE 68; RESP 18; TEMP 36.6; O2SAT 100
== END 2025-01-17 20:12 | disposition home or self-care (01) ==
PROVIDERS: Physician Assistant Medical; Emergency Provider Emergency Medicine; PCP Internal Medicine
DX: R51.9 Headache, unspecified (principal); Z88.2 Allergy status to sulfonamides; Z88.6 Allergy status to analgesic agent; Z88.8 Allergy status to other drugs, medicaments and biological substances; Z87.891 Personal history of nicotine dependence; Z79.899 Other long term (current) drug therapy
CPT/HCPCS: 36415; 80053; 83735; 85025; 85652; 86140; 96360; 96361; 96374; 96375; 99284; 99285; J0131; J1200; J2765

== ENCOUNTER 2025-02-06 13:43 | Outpatient (AMB) | payer OTHER, SELFPAY ==
--- NOTE | 2025-02-06 13:44 | MHC.OFFVIS ---
Intake Visit Reasons: 3 month med f/u Allergies ferrous sulfate Allergy (Severe, Verified 01/17/25 16:40) abdominal pain Sulfa (Sulfonamide Antibiotics) Allergy (Severe, Verified 01/17/25 16:40) RASH, TROUBLE SWALLOWING, DIFFICULTY BREATHING, anaphylaxis venlafaxine (From Effexor) Allergy (Severe, Verified 01/17/25 16:40) anaphylaxis/tongue swelling ibuprofen (From MOTRIN) Allergy (Intermediate, Verified 01/17/25 16:40) SHORTNESS OF BREATH morphine (MORPHINE) Allergy (Intermediate, Verified 01/17/25 16:40) NAUSEA/VOMITING, anaphylaxis aspirin (Aspirin) Allergy (Mild, Verified 01/17/25 16:40) hives/rash/SOB/difficulty swallowing/throat swelling hydromorphone (From DILAUDID) Adverse Reaction (Intermediate, Verified 01/17/25 16:40) DYSPHORIA semaglutide (From Wegovy) Adverse Reaction (Intermediate, Verified 01/17/25 16:40) headache,abdominal pain HPI Comments Details: The patient is scheduled a telehealth visit for follow-up regarding Provera. Provera has not been taken 10 mg p.o. q.d. day 15-24 cyclically, menstrual cycles are irregular Last mammogram in 11/29 was BI-RADS 2, next screening mammogram scheduled on 03/06/2025 [facility] Medical History Left renal stone Severe recurrent major depression QUINCY (generalized anxiety disorder) Physical exam Physical exam Screen for sexually transmitted diseases Pelvic pain Well woman exam Hx of chronic endometritis Pelvic inflammatory disease (PID) Bacterial vaginosis Cervical cancer screening Blurry vision Morbid obesity due to excess calories Hypovitaminosis D B12 deficiency Depression with anxiety History of cocaine use Chronic fatigue Iron deficiency anemia Surgical History History of ankle surgery Hx of cholecystectomy H/O tubal ligation H/O section Hx of breast reduction, elective Family History Father HTN (hypertension) Liver disease due to alcohol Mother HTN (hypertension) Diabetes Stroke Maternal Aunt Breast cancer Uterine cancer Maternal Uncle Breast cancer Paternal Grandmother Uterine cancer Family/Other Mental health disorder Family/Other Breast cancer Social History Housing: Apartment Alcohol intake: former Patient Tobacco Use Status: Former Tobacco user Cigarettes Per Day: 1 e-Cigarette/Vaping Use: Never Used service: No Current occupational status: employed 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 [employer] Current occupational exposures/hazards: No Cognitive needs: No Hearing needs: No Vision needs: No Female Reproductive History Menstrual Age of Menarche: 9 Review of Systems Const All systems reviewed & are unremarkable except as noted in HPI and below Reports as per HPI and Reports no additional complaints GI Reports no additional complaints Reports no additional complaints Telehealth Telehealth Telehealth Platform: [employer] Location of provider rendering services: practice address Location of patient: address on file Patient Identification confirmed using: Name, : Yes Telehealth method: video Patient verbally consented to treatment: Yes Patient verbally consented to billing insurance company: Yes Patient informed of any privacy concerns related to visit: Yes Minutes spent on Phone/Video with Pt.: 6 Assessment & Plan Assessment & Plan (1) Abnormal uterine bleeding (AUB): Code(s): N93.9 - Abnormal uterine and vaginal bleeding, unspecified Category: Medical Plan: Provera 10 mg p.o. q.d. day 15-24 refill sent to the patient's pharmacy. Instructions given the patient to take 1 pill a day day 15-24 and schedule a follow-up appointment within three-month. All questions answered, the patient verbalized understanding. I spent a total of 20 minutes reviewing the chart, talking to the patient via video and documenting in the medical record. Medications: Refilled medroxyprogesterone (Provera) start Provera 1 tablet daily from day 15-24 cyclically every months, day 1 being 1st day of menses 10 mg PO DAILY 30 tabs 0RF 90 days Coding Level of Care Code Tele Est Pt Level 3 (24093) Diagnoses Abnormal uterine bleeding (AUB) N93.9
--- OUTSIDE RECORDS SUMMARY | 2025-02-06 15:45 | XMS_ITS | Encounter Summary ---
Author Organization [facility] Address [address] [place] [address] Phone Care Team Providers Care Meat And Poultry Inspector Name Role Phone Unavailable Primary Care Provider Unavailabl e Encounter Details Date Type Department Care Team (Late st Contact Info) Description 12/15/2012 [place] [facility] [place] [address] [place] [address] Family Medicine, Physician [facility] [place] [address] Social History Tobacco Use Types [...]
--- OUTSIDE RECORDS SUMMARY | 2025-02-06 15:45 | XMS_ITS | Encounter Summary ---
Author Organization [facility] Address [address] [place] [phone] Phone Care Team Providers Care Grades 1 Through 5 Teacher Name Role Phone Unavailable Primary Care Provider Unavailabl e Encounter Details Date Type Department Care Team (Late st Contact Info) Description 12/15/2012 Documentation [facility] [place] [address] [place] [address] Family Medicine, Physician [facility] [place] [address] Social History Tobacco Use Types [...]
--- OUTSIDE RECORDS SUMMARY | 2025-02-06 15:45 | XMS_ITS | Clinical Summary ---
Author Organization [facility] [employer] [facility] Address [address] [place] [address] Care Team Providers Care Fabric Worker Fitter Name Role Phone Unavailable Primary Care Provider [...] Screening 04/06/2023 Depression Screening 03/08/2024 COVID-19 Vaccine ( - 2024-2 6 season) 2024 Influenza Vaccine [...]
--- OUTSIDE RECORDS SUMMARY | 2025-02-06 15:45 | XMS_ITS | Encounter Summary ---
Author Organization [facility] Address [address] [place] [phone] Phone Care Team Providers Care Spa Receptionist Name Role Phone Unavailable Primary Care Provider Unavailabl e Encounter Details Date Type Department Care Team (Late st Contact Info) Description 12/15/2012 Documentation [facility] [place] [address] [place] [address] Family Medicine, [place] [address] Social History Tobacco Use Types [...]
--- OUTSIDE RECORDS SUMMARY | 2025-02-06 15:45 | XMS_ITS | Clinical Summary ---
Author Organization [facility] Address [address] [place] [address] Phone Care Team Providers Care Global Manager Name Role Phone Unavailable Primary Care Provider [...]
--- OUTSIDE RECORDS SUMMARY | 2025-02-06 15:45 | XMS_ITS | Encounter Summary ---
Author Organization [facility] Address [address] [place] [address] Phone Care Team Providers Care Non Destructive Testing Scientist Name Role Phone Unavailable Primary Care Provider Unavailabl e Encounter Details Date Type Department Care Team (Late st Contact Info) Description 12/15/2012 Documentation [facility] [place] [address] [place] [address] Family Medicine, Physician [facility] [place] [address] Social History Tobacco Use Types [...]
--- OUTSIDE RECORDS SUMMARY | 2025-02-06 15:45 | XMS_ITS | Encounter Summary ---
Author Organization [facility] Address [address] [place] [address] Phone Care Team Providers Care Black Puller Name Role Phone Unavailable Primary Care Provider Unavailabl e Encounter Details Date Type Department Care Team (Late st Contact Info) Description 12/15/2012 Documentation [facility] [place] [address] [place] [address] Family Medicine, Physician [facility] [place] [address] Social History Tobacco Use Types [...]
--- OUTSIDE RECORDS SUMMARY | 2025-02-06 15:45 | XMS_ITS | Encounter Summary ---
Author Organization [facility] Address [address] [place] [phone] Phone Care Team Providers Care Chair Inspector And Leveler Name Role Phone Unavailable Primary Care Provider Unavailabl e Encounter Details Date Type Department Care Team (Late st Contact Info) Description 12/15/2012 Documentation [facility] [place] [address] [place] [address] Family Medicine, Physician [facility] [place] [address] Social History Tobacco Use Types [...]
--- OUTSIDE RECORDS SUMMARY | 2025-02-06 15:45 | XMS_ITS | Encounter Summary ---
Author Organization [facility] Address [address] [place] [address] Phone Care Team Providers Care Senior Graphic Designer Name Role Phone Unavailable Primary Care Provider Unavailabl e Encounter Details Date Type Department Care Team (Late st Contact Info) Description 12/15/2012 Documentation [facility] [place] [address] [place] [address] Family Medicine, Physician [facility] [address] Social History Tobacco Use Types [...]
== END 2025-02-06 16:25 | disposition home or self-care (01) ==
PROVIDERS: PCP Internal Medicine; Visit Provider Obstetrics & Gynecology
DX: N93.9 Abnormal uterine and vaginal bleeding, unspecified (principal)
CPT/HCPCS: 99213